=== PATIENT | female | born 1950 | race Caucasian/White ===

== ENCOUNTER 2016-07-16 18:04 | Emergency (ER) | payer OTHER ==
[2016-07-16 18:15] VITALS: BP 141/65
--- NOTE | 2016-07-16 19:16 | RAD ---
Indication: Cough, shortness of breath. 2 views of the chest including dual energy PA views demonstrate no mediastinal shift. Heart is normal size and configuration. Lungs are clear. When compared to May 15, 2015 no significant change is noted. IMPRESSION: No active cardiopulmonary disease is noted.
--- NOTE | 2016-07-16 20:00 | UC ---
Respiratory Complaint HPI - HPI Summary HPI Summary: PATIENT PRESENTS TO WITH CC OF COUGH, POST NASAL DRIP, CONGESTION AND NASAL DISCHARGE X 5 DAYS. SHE HAS HAD 1 X EPISODE OF PNA AND STATES SHE WANTED TO CATCH IT EARLY TO PREVENT ANOTHER PNA. SHE SAYS HER SYMPTOMS ARE BRONCHITIS THIS IS WHAT SHE HAS HAD IN THE PAST. SHE IS OTHERWISE HEALTHY. SHE DENIES FEVERS, CHILLS OR SWEATS. EDUCATED PATIENT ON ANTIBIOTICS AND BRONCHITIS. - History of Current Complaint Chief Complaint: UCRespiratory Stated Complaint: COUGH Time Seen by Provider: 07/16/16 18:22 Hx Obtained From: Patient Hx Last Menstrual Period: n/a ?: No Onset/Duration: Gradual Onset Timing: Constant Severity Initially: Moderate Severity Currently: Moderate Pain Intensity: 2 Pain Scale Used: 0-10 Numeric Character: Cough: Productive Aggravating Factors: Recumbent Position Alleviating Factors: Upright Position Associated Signs And Symptoms: Positive: URI, Nasal Congestion, Sinus Discomfort - Risk Factors Pulmonary Embolism Risk Factors: Negative Cardiac Risk Factors: Negative Pseudomonas Risk Factors: Negative Tuberculosis Risk Factors: Negative - Allergies/Home Medications Allergies/Adverse Reactions: Allergies Allergy/AdvReac Type Severity Reaction Status Date / Time Morphine Allergy Vomiting Verified 07/16/16 18:15 Penicillins [PCN] Allergy Fever Verified 07/16/16 18:15 PMH/Surg Hx/FS Hx/Imm Hx Previously Healthy: Yes Endocrine History Of: Reports: Diabetes Denies: Thyroid Disease Cardiovascular History Of: Reports: Hypertension Denies: Cardiac Disorders Respiratory History Of: Reports: Bronchitis - has had neb rxs in past, has MDI at home Denies: COPD, Asthma GI/ History Of: Denies: Ulcer Cancer History Of: Denies: Breast Cancer - Surgical History Surgical History: Yes Surgery Procedure, Year, and Place: choley, knee - Family History Known Family History: Positive: Hypertension, Diabetes - Social History Occupation: Unemployed Lives: With Family Alcohol Use: Occasionally Substance Use Type: None Smoking Status (MU): Current Every Day Smoker Review of Systems Constitutional: Fatigue Skin: Negative ENT: Nasal Discharge Respiratory: Shortness Of Breath, Cough Gastrointestinal: Negative Genitourinary: Negative Neurovascular: Negative Psychological: Negative All Other Systems Reviewed And Are Negative: Yes Physical Exam Triage Information Reviewed: Yes Appearance: Well-Appearing, Well-Nourished Vital Signs: Initial Vital Signs Temp 97.7 F 07/16/16 18:12 Pulse 90 07/16/16 18:12 Resp 18 07/16/16 18:12 BP 141/65 07/16/16 18:12 Vital Signs Reviewed: Yes Eye Exam: Normal Eyes: Positive: Conjunctiva Clear ENT: Positive: Nasal congestion, Nasal drainage Neck exam: Normal Neck: Positive: Supple, No Lymphadenopathy Respiratory Exam: Normal Respiratory: Positive: Chest non-tender, Lungs clear Cardiovascular Exam: Normal Cardiovascular: Positive: RRR Musculoskeletal Exam: Normal Musculoskeletal: Positive: Strength Intact Neurological: Positive: Alert Psychological: Positive: Normal Response To Family, Age Appropriate Behavior Skin Exam: Normal Respiratory Course/Dx - Course Course Of Treatment: PATIENT EDUCATED ON ANTIBIOTICS AND BRONCHITIS. PATIENT IS ENCOURAGED TO TAKE PREDNISONE AND COUGH MEDICATION INSTEAD OF ANTIBIOTICS COUGH SYMPTOMS HAVE BEEN PRESENT FOR ONLY 5 DAYS, LUNGS ARE CLEAR, CHEST XRAY IS NEGATIVE. PATIENT IS OK WITH PLAN AND IS OK FOR DISCHARGE. SHE AGREES TO COME BACK IF ANYTHING CHANGES. - Differential Dx/Diagnosis Differential Diagnosis/HQI/PQRI: Asthma, Bronchitis, Lower Resp Infection, Sinusitis Provider Diagnoses: COUGH, URI Discharge - Discharge Plan Condition: Stable Disposition: HOME Prescriptions: guaiFENesin/CODIEN 100MG-10MG* [Robitussin AC 100Mg-10Mg*] 10 ml PO Q4H PRN # 120 udc MDD 10 PRN Reason: Cough predniSONE TAB* [Deltasone TAB*] 10 mg PO DAILY #21 tab Patient Education Materials: Upper Respiratory Infection (ED) Referrals: Danisha Eller MD [Primary Care Provider] - Additional Instructions: Follow up as needed If symptoms become worse, come back to Humidifier in the home, honey and lemon will help robitussin with codeine at bedtime mucinex in the morning prednisone as prescribed in the morning if you develop a fever, chills, or aches, come back to
== END 2016-07-16 20:05 | disposition home or self-care (01) ==
LOC: UCEAST 18:04
DX: J06.9 Acute upper respiratory infection, unspecified (principal); R05 Cough; E11.9 Type 2 diabetes mellitus without complications; I10 Essential (primary) hypertension; Z90.49 Acquired absence of other specified parts of digestive tract; Z88.5 Allergy status to narcotic agent; Z88.0 Allergy status to penicillin; F17.210 Nicotine dependence, cigarettes, uncomplicated
CPT/HCPCS: 71020; 99212; G0463

== ENCOUNTER 2016-09-06 08:47 | Observation (INO) | payer OTHER ==
[2016-09-06] MEDS ORDERED: Ketorolac INJ* 30 MG/ML 1 ML VIAL IV ONE (10:57)
[2016-09-06] MEDS ORDERED: HYDROmorphone* 1 MG/ML 1 ML SYR IV ONE (10:57)
[2016-09-06] MEDS ORDERED: NS 0.9% 1000 ML* 1,000 ML IV ONE (11:05)
[2016-09-06 11:17] LABS: Hematocrit 43 % (35-47); Hemoglobin 14.3 g/dl (12.0-16.0); Mean Corpuscular HGB Conc 33 g/dl (31-36); Mean Corpuscular Hemoglobin 30 pg (27-31); Mean Corpuscular Volume 89 fL (80-97); Mean Platelet Volume 10 um3 (7.4-10.4); Red Blood Count 4.83 10^6/ul (4.0-5.4); Red Cell Distribution Width 14 % (10.5-15); White Blood Count 15.8 10^3/ul (3.5-10.8)
[2016-09-06 11:28] LABS: ALT 16 U/L (7-52); Albumin 4.2 g/dL (3.2-5.2); Alkaline Phosphatase 70 U/L (34-104); BUN/Creatinine Ratio 12.7 (8-20); Blood Urea Nitrogen 9 mg/dL (6-24); C Reactive Protein 9.47 mg/L (< 5.00); CO2 Carbon Dioxide 25 mmol/L (22-32); Calcium 9.3 mg/dL (8.6-10.3); Chloride 102 mmol/L (101-111); EGFR African American 106.6 (>60); EGFR Non-African American 82.9 (>60); Globulin 3.3 g/dL (2-4); Glucose 201 mg/dL (70-100); Lipase 19 U/L (11.0-82.0); Sodium 134 mmol/L (133-145); Total Protein 7.5 g/dL (6.4-8.9)
--- NOTE | 2016-09-06 11:48 | RAD ---
INDICATION: Left flank abdominal pain. COMPARISON: Comparison is made with a prior pelvic ultrasound from April 22, 2008. TECHNIQUE: A CT scan of the abdomen and pelvis was performed without intravenous or oral contrast. Contiguous axial sections were obtained from the lung bases through the symphysis pubis. Images were reconstructed in the coronal and sagittal planes. FINDINGS: There is a small left pleural effusion and minimal atelectasis in the left lower lobe. The liver is moderately enlarged and decreased in attenuation most consistent with fatty infiltration. No significant focal abnormality is seen on this noncontrast study. The patient is status post cholecystectomy. The spleen and pancreas appear to be within normal limits. The adrenal glands and kidneys are normal in size. No renal calculi or hydronephrosis is seen. No ureteral or bladder calculi are seen. The aorta is normal in caliber. There is moderate calcific plaque present. No significant enlarged retroperitoneal lymph nodes are seen. The stomach, small and large bowel appear nondistended. The appendix is not visualized. There is mild descending and sigmoid diverticulosis without evidence for diverticulitis. The uterus is retroverted and normal in size. There is a 4.6 x 3.8 x 4.6 cm left adnexal cyst most consistent with an ovarian cyst. There was a cyst noted in the left ovary on the prior study which is smaller than on the current exam. This may represent a new cyst or enlargement of the previously noted cyst. No free intraperitoneal air or fluid is seen. No significant focal osseous abnormality is seen. IMPRESSION: 1. SMALL LEFT PLEURAL EFFUSION. 2. HEPATOMEGALY AND HEPATIC STEATOSIS. 3. STATUS POST CHOLECYSTECTOMY. 4. 4.6 CM LEFT OVARIAN CYST. RECOMMEND A PELVIC ULTRASOUND FOR FURTHER EVALUATION.
[2016-09-06 12:24] LABS: Anion Gap 7 mmol/L (2-11)
[2016-09-06 13:38] LABS: Urine Bacteria Absent (Absent); Urine Bilirubin Negative (Negative); Urine Glucose Negative (Negative); Urine Nitrite Negative (Negative)
[2016-09-06] MEDS ORDERED: cefTRIAXone(*) 1 GM in NS 0.9% 50 ML* 50 ML IVPB ONE (14:17)
--- NOTE | 2016-09-06 15:13 | RAD ---
HISTORY: Left ovarian cyst COMPARISONS: CT dated September 06, 2016 TECHNIQUE: Multiple transverse and longitudinal ultrasound images were obtained of the pelvis using grayscale, color Doppler, and spectral Doppler imaging using the endovaginal transducer. FINDINGS: UTERUS: The uterus measures 4.5 x 2.3 x 4 cm. The uterus is normal in shape, size, contour, and echotexture. ENDOMETRIUM: The endometrial stripe is smooth. The endometrium measures 0.3 cm in thickness. There is a small amount of fluid along the endometrial cavity. CUL-DE-SAC: There is no free fluid within the cul-de-sac. RIGHT OVARY: The right ovary is not well-visualized LEFT OVARY: The left ovary measures 5.6 x 4 x 5.3 cm. Normal arterial and venous waveforms are identifiable within the ovary on spectral Doppler imaging. There is a 4.5 x 3.5 x 4.7 cm simple cyst of the left ovary corresponding to the finding noted on CT BLADDER: The bladder is not well visualized. IMPRESSION: 1. 4.7 CM SIMPLE CYST OF LEFT OVARY. RECOMMEND ATTENTION ON FOLLOW-UP IMAGING. 2. SMALL AMOUNT OF FLUID WITHIN THE ENDOMETRIAL CAVITY. THIS WOULD NOT BE EXPECTED TO BE PHYSIOLOGIC WITHIN A POSTMENOPAUSAL FEMALE.
[2016-09-06] MEDS ORDERED: oxyCODONE/Acetamin 5/325 MG* TAB PO PRN (15:44)
[2016-09-06] MEDS ORDERED: Ondansetron INJ* 2 MG/ML VIAL IV PRN (15:44)
[2016-09-06] MEDS ORDERED: Acetaminophen TAB* 325 MG PO PRN (15:44)
[2016-09-06] MEDS ORDERED: NS 0.9% 1000 ML* 1,000 ML IV SCH (15:45)
[2016-09-06] MEDS ORDERED: Dextrose 50% Syringe 50 ML* 25 GM/50 ML SYRINGE IV PUSH PRN (15:48)
[2016-09-06] MEDS ORDERED: cefTRIAXone VIAL(*) 1,000 MG in NS 0.9% 50 ML* 50 ML IVPB SCH (16:00)
--- NOTE | 2016-09-06 17:10 | RAD ---
Indication: Shortness of breath, leukocytosis. 2 views of the chest including dual energy PA views demonstrates no mediastinal shift. Minimal epicardial fat is noted in the left base. No alveolar consolidation is noted. IMPRESSION: Minimal epicardial fat in the left base. Lungs are clear.
[2016-09-06] MEDS: Insulin LISPRO* 1 UNITS UNIT SUBCUT SCH (17:51)
[2016-09-06] MEDS: Ketorolac INJ* 30 MG/ML 1 ML VIAL IV PUSH PRN (17:54)
--- NOTE | 2016-09-06 20:47 | HP ---
CC: Dr. Eller * MEDICINE HISTORY AND PHYSICAL: DATE OF ADMISSION: 09/06/16 PROVIDER: Alonso Carmona NP ATTENDING PHYSICIAN: Dr. Allison Mckenzie *(dictated by Alonso Carmona NP). PRIMARY CARE PROVIDER: Dr. Danisha Eller. CHIEF COMPLAINT: Left flank pain. HISTORY OF PRESENT ILLNESS: Ms. Cabrera is a 66-year-old female who presents to the ER today with concerns for left flank pain that started yesterday in the early afternoon and worsened overnight. The patient says that she originally thought she threw her back out. She denies any accompanied fevers, chills, cold , or flu symptoms. She denies any chest pain, palpitations, cough. She denies any dyspnea yesterday, but reports that when her pain became worse today, she started to feel short of breath. She denies any abdominal pain, nausea, vomiting, or diarrhea. She denies any dysuria, hematuria, urinary frequency, or vaginal bleeding. She denies any focal weakness or sensory loss, any new visual complaints, hearing complaints, or swallowing complaints. She denies any new joint or muscle pain, rashes, or lesions. The patient does report mechanical fall where she twisted her ankle the other day, but states that she did not twist her back or sustain any low back injuries. She does report a history of urinary tract infection x1 and kidney stones in the past. Here in the ER, the patient's white blood cell count was significant for 15.8 and her CRP was noted at 9.47. Urinalysis shows 2+ leukocyte esterase. The patient did have a CT of the abdomen and pelvis that was negative for any obstructing stones. No stones or hydronephrosis was seen. No ureteral or bladder calculi were seen. The patient did seem to have a 4.6-cm left ovarian cyst, which was also seen on a pelvic ultrasound with a small amount of fluid within the endometrial cavity. PAST MEDICAL HISTORY: 1. Type 2 diabetes. 2. Hypertension. 3. Hyperlipidemia. 4. Osteoarthritis. 5. Nephrolithiasis. PAST SURGICAL HISTORY: Cholecystectomy and right total knee replacement. HOME MEDICATIONS: 1. Meloxicam, dose unknown. 2. Pravastatin 10 mg daily. 3. Glipizide 5 mg b.i.d. 4. Robitussin A-C 10 mL q.4 hours p.r.n. 5. Metformin 1000 mg b.i.d. 6. Irbesartan 75 mg daily. ALLERGIES: Include MORPHINE and PENICILLIN. FAMILY HISTORY: She reports her father who had two heart attacks and from the second heart attack. One sister with a history of sarcoma and a nerve tumor , and a history of colon cancer on her father's side in aunts and uncles. SOCIAL HISTORY: She is a current cigarette smoker. States she smokes 5 to 6 cigarettes a day. She had previously quit, but restarted when her . She drinks alcohol on a weekly basis usually when out with friends on the weekends. She denies any illicit drug use. She is . She currently lives with her nephew and his . Her nephew, Jesus Ngo, is her surrogate decision maker. REVIEW OF SYSTEMS: As per HPI. PHYSICAL EXAMINATION GENERAL: Ms. Cabrera is a 66-year-old female who is lying in the ED stretcher, in no acute distress. VITAL SIGNS: Temperature 96.9, heart rate 85, respiratory rate 18, blood pressure /72, and O2 saturation is 100% on room air. HEENT: Head is atraumatic and normocephalic. Face is symmetrical. Pupils are equal, round, and reactive to light. Extraocular movements are intact. Sclerae are anicteric. Oral mucosa appears moist. NECK: Supple. No lymphadenopathy appreciated. The patient has full range of motion. RESPIRATORY: Lungs are clear to auscultation. No accessory muscle use. CARDIAC: S1 and S2. Heart sounds are regular rate and rhythm. No murmurs, rubs, or gallops. The patient has trace pretibial edema. Distal pulses are 2+ bilaterally. ABDOMEN: Soft. There is tenderness to left upper quadrant along the left flank. The patient does have positive CVA tenderness in the left side. Bowel sounds are present times all 4 quadrants. MUSCULOSKELETAL: There is no clubbing or cyanosis. The patient has full range of motion in all extremities. No swelling noted to the left ankle. NEURO: The patient moves all extremities. Cranial nerves II through XII are grossly intact. Sensation is intact to light touch bilaterally to the lower extremities. PSYCH: She is alert and oriented x3. Affect is appropriate. SKIN: Appears to be grossly intact, limited assessment. DIAGNOSTIC STUDIES/LAB DATA: CBC: WBC 15.8, hemoglobin 14.3, hematocrit 43, platelet count 295. CMP: Sodium 134, potassium 4.1, chloride 102, carbon dioxide 25, BUN 9, creatinine 0.71, glucose 201, lactic acid 1.3, calcium 9.3. Total bilirubin 1.1, AST 9, ALT 16, alk phos 70. CRP 9.47. Albumin 4.2, lipase 19. Urinalysis shows 2+ leukocyte esterase, 1+ wbc's. ASSESSMENT AND PLAN: Ms. Cabrera is a 66-year-old female, who presents today with left flank pain. We will watch her under observation status. Plan is as follows: 1. Left flank pain. Suspect this is most likely pyelonephritis, although this could represent a left pleuritic pain. She does report having some shortness of breath this morning that did get better once arriving here in the ER. I will check a chest x-ray, PA and lateral, to make sure there is no developing pneumonia. She does have an elevated white count, but no other remarkable labs and her urine does appear to have concern for infection. At this point, we will start the patient on ceftriaxone and await urine culture. Check the x- ray. If it appears that the patient has a developing infiltrate, we could add on azithromycin. At this point in time, it feels like this cause is more likely to be a developing pyelonephritis, but we will continue to monitor and see. The patient's pain is controlled with p.r.n. pain medications. We will continue to hydrate her and recheck labs tomorrow. 2. Type 2 diabetes. The patient's random glucose is 201. I am not sure how well controlled the patient is at home. We will check a hemoglobin A1c. She may benefit from a nursing educator consult. Additionally, we will continue her on fingerstick blood glucose checks a.c. with insulin sliding scale coverage and hold her home metformin and glipizide while she is here in the hospital. 3. Hypertension. Continue home irbesartan. 4. Hyperlipidemia. Continue home pravastatin. 5. FEN. The patient is ordered consistent carbohydrate diet. 6. DVT prophylaxis. The patient is ordered subcu heparin. 7. Code status: She is a full code. TIME SPENT: Time spent on this admission was approximately 60 minutes, more than half the time was spent [id number] with the patient obtaining history and physical, performing the physical examination, and reviewing the plan of care. Plan of care was also reviewed with my attending, Dr. Allison Mckenzie,, who is in agreement. ALONSO CARMONA, SEAN [id number]/[facility] #: [id number] ADRIENNE
[2016-09-06] MEDS: Heparin VIAL(*) 5000 UNITS/ML VIAL (FIVE THOUSAND) SUBCUT SCH (21:53)
[2016-09-07] MEDS: Ketorolac INJ* 30 MG/ML 1 ML VIAL IV PUSH PRN (05:10)
[2016-09-07] MEDS: Heparin VIAL(*) 5000 UNITS/ML VIAL (FIVE THOUSAND) SUBCUT SCH ×2 (05:11→14:53)
[2016-09-07 06:02] LABS: Hematocrit 35 % (35-47); Hemoglobin 11.6 g/dl (12.0-16.0); Mean Corpuscular HGB Conc 33 g/dl (31-36); Mean Corpuscular Hemoglobin 30 pg (27-31); Mean Corpuscular Volume 90 fL (80-97); Mean Platelet Volume 9 um3 (7.4-10.4); Red Blood Count 3.88 10^6/ul (4.0-5.4); Red Cell Distribution Width 13 % (10.5-15); White Blood Count 8.7 10^3/ul (3.5-10.8)
[2016-09-07 06:17] LABS: BUN/Creatinine Ratio 14.7 (8-20); Calcium 8.6 mg/dL (8.6-10.3); EGFR African American 100.1 (>60); EGFR Non-African American 77.8 (>60); Potassium 4.3 mmol/L (3.5-5.0)
[2016-09-07] MEDS: Insulin LISPRO* 1 UNITS UNIT SUBCUT SCH ×2 (08:20→12:13)
[2016-09-07] MEDS ORDERED: Pravastatin (NF) 10 MG TAB PO SCH (09:00)
[2016-09-07] MEDS ORDERED: Losartan TAB* 25 MG PO SCH (09:00)
[2016-09-07 12:01] VITALS: BP 141/55
--- NOTE | 2016-09-08 03:05 | DS ---
CC: Dr. Eller* DISCHARGE SUMMARY: DATE OF ADMISSION: 09/06/16 DATE OF DISCHARGE: 09/07/16 PRIMARY CARE PROVIDER: Dr. Danisha Eller. PRIMARY DIAGNOSIS: Left flank pain. SECONDARY DIAGNOSES: 1. Type 2 diabetes. 2. Tobacco dependence. 3. Hypertension. 4. Hyperlipidemia. 5. History of nephrolithiasis. MEDICATIONS ON DISCHARGE: 1. Pravastatin 10 mg daily. 2. Glipizide 5 mg twice daily. 3. Robitussin with Codeine 10 mL every 4 hours as needed for cough. 4. Metformin 1000 mg twice daily. 5. Irbesartan 75 mg daily. 6. Chantix starter pack. IMAGING STUDIES: CT abdomen and pelvis, impression: Small left pleural effusion. Hepatomegaly and hepatosteatosis, status post cholecystectomy. A 4.6 CM LEFT OVARIAN CYST. Transvaginal ultrasound, impression: 4.7 CM SIMPLE CYST OF THE LEFT OVARY. Recommend attention on followup imaging. Small amount of fluid within the endometrial cavity. This would not be expected to be physiologic in a postmenopausal female. PERTINENT MICROBIOLOGY: Negative urine culture. PERTINENT LABORATORY DATA: White blood cell count on presentation 15.8, 77% neutrophils, decreased to 8.7 with one dose of ceftriaxone as well as ketorolac. HISTORY OF PRESENT ILLNESS AND HOSPITAL COURSE: This is a 66-year-old female presented to the hospital with left flank pain, starting the night before. She underwent a CT abdomen and pelvis notable for left-sided ovarian cyst; where the transvaginal ultrasound confirming the ovarian cyst thought to be simple, however, associated with small amount of pelvic fluid. She was treated with ceftriaxone for a presumed urinary tract infection based on the urinalysis, which had leuk esterase as well as white blood cells although no bacteria. A urine culture returned negative. She remained afebrile during the course of the hospital stay. Not thought that she has pyelonephritis at this time based on the CT abdomen and pelvis as well as negative urine culture and urinalysis in the absence of bacteria. Unclear etiology of her left flank pain; however, resolved overnight with minimal intervention. I did not think the antibiotics contributed to the resolution of her pain. She did have an elevated leukocytosis on presentation, however, was not left shifted. At this time, she is stable for discharge and will not continue antibiotics. She should have attention to her left ovarian cyst at followup. The patient indicates she is still an active smoker five to six cigarettes per day, however, is interested in quitting. She has been successful on Chantix in the past and Chantix is prescribed on discharge from this hospital stay. At followup, please; 1. Consider rechecking CBC for continued resolution of leukocytosis off of antibiotics. 2. Followup left-sided simple cyst as deemed appropriate. 3. Encourage continued smoking cessation, compliance with the Chantix. 4. No other specific labs or vitals that need follow up. Reasons to return to the hospital included, but not limited to recurrent or worsening symptoms including left-sided flank pain, abdominal pain, nausea, vomiting, lightheadedness, loss of consciousness, fevers, chills, night sweats, chest pain, shortness of breath, inability to obtain or tolerate medications were discussed with the patient at length, she acknowledged understanding. TIME SPENT: Greater than 45 minutes was spent on the discharge of this patient , greater than half was spent [id number] with the patient. [id number]/[facility] #: [id number] ADRIENNE
--- NOTE | 2016-09-09 22:52 | ED ---
Melquiades Magdaleno Salem, scribed for Sahil Daivs MD on 09/06/16 at 1100 . Back Pain - HPI Summary HPI Summary: Patient is a 66 y/o F who presents to the ED with left flank pain since yesterday afternoon, worse since this morning. She reports SOB, but denies CP, fever, dysuria, hematuria, or frequency. Pt is present at the ED with her sister. PMHx significant for kidney stones. She denies any recent trauma. - History of Current Complaint Chief Complaint: EDChestPainROMI Stated Complaint: SOB/LT FLANK PAIN Time Seen by Provider: 09/06/16 10:59 Hx Obtained From: Patient Hx Last Menstrual Period: n/a Onset/Duration: Gradual Onset, Lasting Days, Still Present, Worse Since Onset/Duration: Started Days Ago, Atraumatic, Still Present, Worse Since Timing: Constant, Lasting Days Back Pain Location: Is Discrete @ - Left CVA. Severity Initially: Moderate Severity Currently: Moderate Pain Intensity: 10 Pain Scale Used: 0-10 Numeric Character: Sharp Aggravating Symptom(s): Movement - Recumbent position. Alleviating Symptom(s): Rest, Position Associated Signs And Symptoms: Positive: Flank Pain - Allergies/Home Medications Allergies/Adverse Reactions: Allergies Allergy/AdvReac Type Severity Reaction Status Date / Time Morphine Allergy Vomiting Verified 07/16/16 18:15 Penicillins [PCN] Allergy Fever Verified 07/16/16 18:15 PMH/Surg Hx/FS Hx/Imm Hx Endocrine/Hematology History: Reports: Hx Diabetes Denies: Hx Thyroid Disease Cardiovascular History: Reports: Hx Hypertension Respiratory History: Denies: Hx Asthma, Hx Chronic Obstructive Pulmonary Disease (COPD) GI History: Denies: Hx Ulcer - Surgical History Surgery Procedure, Year, and Place: choley, knee Infectious Disease History: No Infectious Disease History: Denies: Hx Hepatitis, Hx Human Immunodeficiency Virus (HIV), Traveled Outside the [place] in Last 30 Days - Family History Known Family History: Positive: Hypertension, Diabetes - Social History Alcohol Use: None Substance Use Type: Reports: None Hx Tobacco Use: Yes Smoking Status (MU): Current Every Day Smoker Review of Systems Negative: Fever, Chills Negative: Erythema Negative: Sore Throat Negative: Chest Pain Positive: Shortness Of Breath. Negative: Cough Negative: Abdominal Pain, Vomiting, Nausea Positive: flank pain. Negative: dysuria, frequency, hematuria Negative: Myalgia, Edema Negative: Rash Neurological: Other - No dizziness. All Other Systems Reviewed And Are Negative: Yes Physical Exam - Summary Physical Exam Summary: Constitutional: Well-developed, Well-nourished, Alert. (-) Distressed. Appears very uncomfortable. Skin: Warm, Dry HENT: Normocephalic; Atraumatic Eyes: Conjunctiva normal Neck: Musculoskeletal ROM normal neck. (-) JVD, (-) Stridor, (-) Tracheal deviation Cardio: Rhythm regular, rate normal, Heart sounds normal; Intact distal pulses; The pedal pulses are 2+ and symmetric. Radial pulses are 2+ and symmetric. (-) Murmur Pulmonary/Chest wall: Effort normal. (-) Respiratory distress, (-) Wheezes, (-) Rales Abd: Soft, , (-) Distension, (-) Guarding, (-) Rebound. Musculoskeletal: (-) Edema. Left CVA tenderness. Lymph: (-) Cervical adenopathy Neuro: Alert, Oriented x3 Psych: Mood and affect Normal Triage Information Reviewed: Yes Vital Signs On Initial Exam: Initial Vitals Temp Pulse Resp BP Pulse Ox 96.9 F 85 17 148/72 100 09/06/16 09:11 09/06/16 09:11 09/06/16 09:11 09/06/16 09:11 09/06/16 09:11 Vital Signs Reviewed: Yes - Maggie Coma Scale Coma Scale Total: 15 Diagnostics - Vital Signs Vital Signs Temp Pulse Resp BP Pulse Ox 09/06/16 09:59 96.9 F 85 17 148/72 100 09/06/16 09:11 96.9 F 85 17 148/72 100 - Laboratory Result Diagrams: 09/06/16 11:00 09/06/16 12:03 Lab Statement: Any lab studies that have been ordered have been reviewed, and results considered in the medical decision making process. - CT ABD/PELVIS CT Interpretation Completed By: Radiologist - IMPRESSION: 1. SMALL LEFT PLEURAL EFFUSION. 2. HEPATOMEGALY AND HEPATIC STEATOSIS. 3. STATUS POST CHOLECYSTECTOMY. 4. 4.6 CM LEFT OVARIAN CYST. RECOMMEND A PELVIC ULTRASOUND FOR FURTHER EVALUATION. - Ultrasound No standard instances Ultrasound Interpretation Completed By: Radiologist - TRANSVAGINAL US IMPRESSION : 1. 4.7 CM SIMPLE CYST OF LEFT OVARY. RECOMMEND ATTENTION ON FOLLOW-UP IMAGING. 2. SMALL AMOUNT OF FLUID WITHIN THE ENDOMETRIAL CAVITY. THIS WOULD NOT BE EXPECTED TO BE PHYSIOLOGIC WITHIN A POSTMENOPAUSAL FEMALE. - EKG 1042 EKG Interpretation: NSR @99 bpm. No STEMI. Back Pain Course/Dx - Course Course Of Treatment: 66 y/o F presents with left flank pain since yesterday afternoon, worse since this morning. She reports SOB, but denies CP, fever, dysuria, hematuria, or frequency. Pt received Dilaudid and Toradol in the ED course. CT shows, per radiology, IMPRESSION: 1. SMALL LEFT PLEURAL EFFUSION. 2. HEPATOMEGALY AND HEPATIC STEATOSIS. 3. STATUS POST CHOLECYSTECTOMY. 4. 4.6 CM LEFT OVARIAN CYST. RECOMMEND A PELVIC ULTRASOUND FOR FURTHER EVALUATION. EKG shows NSR @99 bpm. No STEMI. US shows, per radiology, IMPRESSION: 1. 4.7 CM SIMPLE CYST OF LEFT OVARY. RECOMMEND ATTENTION ON FOLLOW-UP IMAGING. 2. SMALL AMOUNT OF FLUID WITHIN THE ENDOMETRIAL CAVITY. THIS WOULD NOT BE EXPECTED TO BE. PHYSIOLOGIC WITHIN A POSTMENOPAUSAL FEMALE. Pt will be admitted. - Diagnoses Differential Diagnosis/HQI/PQRI: Positive: Other - Pyelonephritis. Kidney stones. Provider Diagnoses: Pyelonephritis - Provider Notifications Discussed Care Of Patient With: Allison Calderon Time Discussed With Above Provider: 14:35 Instructed by Provider To: Admit As Inpatient Admit/Transition Orders Completed By ED Provider: Yes Discharge - Discharge Plan Condition: Stable Disposition: ADMITTED TO [facility] Referrals: Danisha Eller MD [Primary Care Provider] - The documentation as recorded by the Melquiades lemons Salem accurately reflects the service I personally performed and the decisions made by Susan ochoa Jerry, MD.
== END 2016-09-07 14:50 | disposition home or self-care (01) ==
LOC: ED 08:47 → MED 14:35
PROVIDERS: ADMIT Internal Medicine; ATTEND Internal Medicine
DX: R10.9 Unspecified abdominal pain (principal); E11.9 Type 2 diabetes mellitus without complications; I10 Essential (primary) hypertension; E78.5 Hyperlipidemia, unspecified; Z87.442 Personal history of urinary calculi; R06.02 Shortness of breath; J90 Pleural effusion, not elsewhere classified; R16.0 Hepatomegaly, not elsewhere classified; N83.202 Unspecified ovarian cyst, left side; F17.210 Nicotine dependence, cigarettes, uncomplicated; Z79.84 Long term (current) use of oral hypoglycemic drugs; Z79.899 Other long term (current) drug therapy; Z88.0 Allergy status to penicillin; Z88.5 Allergy status to narcotic agent
CPT/HCPCS: 36415; 71020; 74176; 76830; 80048; 80053; 81003; 81015; 83036; 83605; 83690; 85025; 86140; 87086; 93005; 96365; 96372; 96375; 96376; 99283; A9270-GY; G0378; J0696; J1170; J1644; J1885; J2405

== ENCOUNTER 2017-04-23 10:59 | Emergency (ER) | payer MEDICARE, OTHER ==
[2017-04-23] MEDS ORDERED: NS 0.9% 1000 ML* 1,000 ML IV ONE (11:19)
[2017-04-23] MEDS ORDERED: Ondansetron INJ* 2 MG/ML VIAL IV ONE (11:20)
[2017-04-23] MEDS ORDERED: HYDROmorphone INJ* 2 MG/ML CARPUJECT SYRINGE IV SLOW PU ONE (11:20)
--- NOTE | 2017-04-23 11:26 | ED ---
GI/ HPI - HPI Summary HPI Summary: 67 female presents with right flank pain for the past couple days. She has history of kidney stones and states feels the same. She has been taking her oxycodone without relief. She denies any pain with urination. She denies any fevers. She is unsure about hematuria. She denies any nausea or vomiting. She denies any diarrhea or constipation. She does not have a urologist. She has had her gallbladder removed. She is never required surgery for her kidney stones. She is a diabetic. She denies any injury. She is in intense pain. She denies any chest pain or SOB. - History of Current Complaint Chief Complaint: EDFlankPain Time Seen by Provider: 04/23/17 11:07 Stated Complaint: RT FLANK PAIN Hx Last Menstrual Period: n/a Pain Intensity: 10 - Additional Pertinent History Primary Care Physician: KIRSTEN - Allergy/Home Medications Allergies/Adverse Reactions: Allergies Allergy/AdvReac Type Severity Reaction Status Date / Time morphine Allergy Nausea And Verified 04/23/17 11:41 Vomiting Penicillins Allergy See Comment Verified 04/23/17 11:41 PMH/Surg Hx/FS Hx/Imm Hx Endocrine/Hematology History: Reports: Hx Diabetes Denies: Hx Thyroid Disease Cardiovascular History: Reports: Hx Hypercholesterolemia, Hx Hypertension Respiratory History: Denies: Hx Asthma, Hx Chronic Obstructive Pulmonary Disease (COPD) GI History: Denies: Hx Ulcer Sensory History: Reports: Hx Contacts or Glasses - for reading Denies: Hx Hearing Aid, Other Sensory Impairments Opthamlomology History: Reports: Hx Contacts or Glasses - for reading Denies: Other Sensory Impairments - Surgical History Surgery Procedure, Year, and Place: choley, knee Infectious Disease History: No Infectious Disease History: Denies: Hx Clostridium Difficile, Hx Hepatitis, Hx Human Immunodeficiency Virus (HIV), Traveled Outside the [place] in Last 30 Days - Family History Known Family History: Positive: Hypertension, Diabetes - Social History Alcohol Use: Occasionally Substance Use Type: Reports: None Hx Tobacco Use: Yes Smoking Status (MU): Former Smoker Review of Systems Negative: Fever Negative: Chest Pain Negative: Shortness Of Breath Negative: Abdominal Pain, Vomiting, Diarrhea, Nausea Positive: flank pain All Other Systems Reviewed And Are Negative: Yes Physical Exam Triage Information Reviewed: Yes Vital Signs On Initial Exam: Initial Vitals Temp Pulse Resp BP Pulse Ox 97.4 F 75 20 129/86 100 04/23/17 11:02 04/23/17 11:02 04/23/17 11:02 04/23/17 11:02 04/23/17 11:02 Vital Signs Reviewed: Yes Appearance: Positive: Pain Distress Skin: Positive: Warm, Dry Head/Face: Positive: Normal Head/Face Inspection Eyes: Positive: Normal, Conjunctiva Clear Respiratory/Lung Sounds: Positive: Clear to Auscultation, Breath Sounds Present Cardiovascular: Positive: Normal, RRR Abdomen Description: Positive: Nontender, Soft, CVA Tenderness (R) Bowel Sounds: Positive: Present Musculoskeletal: Positive: Normal Neurological: Positive: Normal Psychiatric: Positive: Normal Diagnostics - Vital Signs Vital Signs Temp Pulse Resp BP Pulse Ox 04/23/17 11:02 97.4 F 75 20 129/86 100 - Laboratory Result Diagrams: 04/23/17 11:15 04/23/17 11:15 Lab Statement: Any lab studies that have been ordered have been reviewed, and results considered in the medical decision making process. Re-Evaluation - Re-Evaluation First Eval Re-Evaluation Time: 12:18 Change: Improved Comment: felling better except intense pain when moves GIGU Course/Dx - Course Course Of Treatment: 67 female presents with right flank pain for the past couple days. She has history of kidney stones and states feels the same. She has been taking her oxycodone without relief. She denies any pain with urination. She denies any fevers. She is unsure about hematuria. She denies any nausea or vomiting. She denies any diarrhea or constipation. She does not have a urologist. She has had her gallbladder removed. She is never required surgery for her kidney stones. She is a diabetic. She denies any injury. She is in intense pain. on exam pos CVA tenderness right. nontender abdomen. labs wnl. CT abd: no obstruction. left adnexal cystic structure. urine likely contaminate. will treat as sprain. will give muscle relaxer and short course of pain medication. patient understand and agrees with plan. - Diagnoses Differential Diagnoses - Female: Pyelonephritis, Urinary Tract Infection, Ureteral Calculi Provider Diagnoses: Flank pain Discharge - Discharge Plan Condition: Good Disposition: HOME Prescriptions: Cyclobenzaprine TAB* [Flexeril 10 MG TAB*] 10 mg PO TID PRN #15 tab PRN Reason: Pain Lidocaine PATCH 5%* [Lidoderm 5% Patch*] 1 patch TRANSDERM DAILY #6 patch oxyCODONE/Acetamin 5/325 MG* [Percocet 5/325 TAB*] 1 tab PO Q6H PRN #8 tab MDD 4 PRN Reason: Pain Patient Education Materials: Flank Pain (ED) Referrals: Danisha Eller MD [Primary Care Provider] - Additional Instructions: Take muscle relaxers three times a day Apply lidocaine patches to area for up to 12 hours in one 24 hour period Use Tylenol for pain every 6 hours, use narcotic for break though pain ice/heat area, move as much as possible Follow up with primary within 5 days Return to ED if develop any new or worsening symptoms
[2017-04-23 11:44] LABS: ABS Basophils 0 10^3/ul (0-0.2); ABS Eosinophils 0.3 10^3/ul (0-0.6); ABS Lymphocytes 2.3 10^3/ul (1.0-4.8); ABS Monocytes 0.5 10^3/ul (0-0.8); ABS Neutrophils 5.2 10^3/ul (1.5-7.7); ABS Nucleated RBC 0 10^3/ul; EGFR Non-African American 76.4 (>60); Eosinophil % 3.3 % (0-6); Hematocrit 38 % (35-47); Hemoglobin 12.8 g/dl (12.0-16.0); Lymphocyte % 27.6 % (25-47); Mean Corpuscular HGB Conc 33 g/dl (31-36); Mean Corpuscular Hemoglobin 29 pg (27-31); Mean Corpuscular Volume 87 fL (80-97); Mean Platelet Volume 8 um3 (7.4-10.4); Nucleated Red Blood Cells % 0; Platelet Count 292 10^3/ul (150-450); Red Blood Count 4.42 10^6/ul (4.0-5.4); Red Cell Distribution Width 13 % (10.5-15); White Blood Count 8.3 10^3/ul (3.5-10.8)
--- NOTE | 2017-04-23 12:08 | RAD ---
Indication: Right flank pain. CT of the abdomen and pelvis was performed after oral and IV contrast administration. Coronal and sagittal reconstructed images were obtained. Comparison is made with previous exam dated September 06, 2016. Lung bases demonstrate no pleural fluid, nodules or masses. Heart is of normal size without evidence of pericardial effusion. The liver is normal in size. No focal lesions or intrahepatic ductal dilatation is noted. The spleen is normal in size. Pancreas demonstrates no mass or pancreatic ductal dilatation. The common duct is not dilated. The patient status post cholecystectomy. No adrenal lesions are noted. The kidneys demonstrates no hydronephrosis. No retroperitoneal adenopathy is noted. No evidence of abdominal aortic aneurysm is noted although atherosclerosis of the abdominal aorta is noted. CT of the pelvis demonstrates no pelvic adenopathy. There is a left adnexal cyst measuring up to 4.0 cm. This is not significantly changed since previous exam of September 06, 2016. No free fluid is noted. The colon is filled with stool. No free fluid is identified. The urinary bladder is unremarkable. Appendix is not definitively identified. The bony structures demonstrates multilevel degenerative disc disease of the lumbar spine. IMPRESSION: No evidence of obstructive uropathy is noted. Left adnexal cystic structure measuring up to 4 cm. This is unchanged from September 06, 2016. Patient status post cholecystectomy. Appendix is not definitively identified.
[2017-04-23] MEDS ORDERED: Orphenadrine Citrate IV* 30 MG/ML 2 ML VIAL IV ONE (12:15)
[2017-04-23] MEDS ORDERED: Ketorolac INJ* 30 MG/ML 1 ML VIAL IV PUSH ONE (12:15)
[2017-04-23] MEDS ORDERED: Orphenadrine Citrate IV* 30 MG/ML 2 ML VIAL IM ONE (12:33)
[2017-04-23] MEDS ORDERED: Lidocaine PATCH 5%* 1 PATCH TRANSDERM SCH (13:00)
[2017-04-23 14:01] LABS: Urine Appearance Clear; Urine Blood Negative (Negative); Urine Color Yellow; Urine Ketones Negative (Negative); Urine Protein Negative (Negative); Urine Specific Gravity 1.017 (1.010-1.030); Urine Urobilinogen Negative (Negative)
[2017-04-23 14:02] VITALS: BP 132/68
[2017-04-23] MEDS ORDERED: Lidocaine Patch REMOVE* 1 NOTE MISC SCH (21:00)
== END 2017-04-23 14:20 | disposition home or self-care (01) ==
LOC: ED 10:59
DX: R10.9 Unspecified abdominal pain (principal); N85.8 Other specified noninflammatory disorders of uterus; E11.9 Type 2 diabetes mellitus without complications; Z87.442 Personal history of urinary calculi; Z87.891 Personal history of nicotine dependence; Z90.49 Acquired absence of other specified parts of digestive tract; Z88.5 Allergy status to narcotic agent; Z88.0 Allergy status to penicillin
CPT/HCPCS: 36415; 74176; 80053; 81003; 81015; 83605; 83690; 85025; 86141; 87086; 96372; 96374; 96375; 99282; A9270-GY; J1170; J1885; J2360; J2405

== ENCOUNTER 2017-07-16 07:30 | Inpatient (IN) | payer MEDICAID, MEDICARE ==
[2017-08-26] MEDS ORDERED: Buffered Lidocaine 0.9% SYRIN* 5 ML/SYR SYRINGE INTRADERM ONE (12:55)
[2017-08-27] MEDS ORDERED: Ondansetron ODT TAB* 4 MG PO ONE (00:01)
[2017-08-27] MEDS ORDERED: Gabapentin CAP(*) 300 MG PO ONE (06:00)
[2017-08-27] MEDS ORDERED: Acetaminophen IV 1GM/100ML * 1,000 MG/100 ML VIAL IVPB ONE (06:00)
[2017-08-27] MEDS ORDERED: Dexamethasone IV* 4 MG/ML 1 ML (4 MG) IV SLOW PU ONE (06:00)
[2017-08-27] MEDS ORDERED: celeCOXIB CAP* 200 MG PO ONE (06:00)
[2017-08-27] MEDS ORDERED: Dexamethasone IV* 4 MG/ML 1 ML (4 MG) ONE (06:18)
[2017-08-27] MEDS ORDERED: Gabapentin CAP(*) 300 MG ONE (06:19)
[2017-08-27] MEDS ORDERED: ceFAZolin 2 GM PREMIX (*) 2 GM/50 ML BAG IVPB ONE (06:19)
[2017-08-27] MEDS ORDERED: Ondansetron ODT TAB* 4 MG ONE (06:19)
[2017-08-27] MEDS ORDERED: celeCOXIB CAP* 100 MG ONE (06:19)
[2017-08-27] MEDS ORDERED: Acetaminophen IV 1GM/100ML * 100 ML ONE (06:55)
[2017-08-27] MEDS ORDERED: Midazolam* 1 MG/ML 5 ML VIAL (5 MG) ONE ×2 (07:12→08:44)
[2017-08-27] MEDS ORDERED: fentaNYL* 50 MCG/ML 2 ML VIAL (100 MCG VIAL) ONE (07:12)
[2017-08-27] MEDS ORDERED: ceFAZolin 1 GM in Dextrose (*) 1 GM/50 ML BAG IVPB ONE (07:15)
[2017-08-27] MEDS ORDERED: ROPIVACAINE 5 MG/ML 30 ML BTL (0.5%) ONE (07:24)
[2017-08-27] MEDS ORDERED: Bupivacaine 0.5% SDV PF* 30ML VIAL ONE (07:43)
[2017-08-27] MEDS ORDERED: Phenylephrine INJ* 10 MG/ML 1 ML VIAL (10 MG) ONE (07:47)
[2017-08-27] MEDS ORDERED: Propofol* 10 MG/ML 20 ML BTL IV PUSH ONE (07:47)
[2017-08-27] MEDS ORDERED: Bupivacaine 0.5% PF 10 ML VIAL INJ ONE (07:47)
[2017-08-27] MEDS ORDERED: Lidocaine 1% MPF wEPI 200,000* 30 ML SDV ONE (08:44)
[2017-08-27] MEDS ORDERED: DiMENhydriNATE IV* 50 MG/ML VIAL IV PUSH PRN (08:50)
[2017-08-27] MEDS ORDERED: Ondansetron INJ* 2 MG/ML VIAL IV PRN (08:50)
[2017-08-27] MEDS ORDERED: Naloxone* 0.4 MG/ML 1 ML VIAL IV PRN (08:50)
[2017-08-27] MEDS ORDERED: Scopolamine 1.5 mg* PATCH TRANSDERM PRN (08:50)
[2017-08-27] MEDS ORDERED: HYDROmorphone INJ* 1 MG/ML CARPUJECT SYRINGE IV PRN (08:50)
[2017-08-27] MEDS ORDERED: fentaNYL* 50 MCG/ML 2 ML VIAL (100 MCG VIAL) IV PRN (08:50)
[2017-08-27] MEDS ORDERED: oxyCODONE/Acetamin 5/325 MG* TAB PO PRN (10:59)
[2017-08-27] MEDS ORDERED: Cyclobenzaprine TAB* 10 MG PO PRN (10:59)
[2017-08-27] MEDS ORDERED: diPHENhydraMINE IV* 50 MG/ML 1 ml VIAL (BENADRYL) IV PRN (10:59)
[2017-08-27] MEDS ORDERED: Ondansetron 40 MG VIAL* 2 MG/ML 20 ML VIAL IV PRN (10:59)
[2017-08-27] MEDS ORDERED: Ondansetron TAB* 4 MG PO PRN (10:59)
[2017-08-27] MEDS ORDERED: Magnesium Hydroxide LIQ* 30 ML UDC PO PRN (10:59)
[2017-08-27] MEDS ORDERED: diPHENhydraMINE PO* 25 MG PO PRN (10:59)
[2017-08-27] MEDS ORDERED: Enoxaparin(*) 40 MG/0.4 ML SYR SUBCUT SCH (11:00)
[2017-08-27] MEDS ORDERED: HYDROmorphone INJ* 2 MG/ML CARPUJECT SYRINGE IV SLOW PU PRN ×2 (11:13)
--- NOTE | 2017-08-27 11:32 | RAD ---
Indication: Left knee replacement 2 views of left knee demonstrates bipolar left knee replacement in satisfactory position. No loosening is noted. IMPRESSION: Right pole of left knee replacement in satisfactory position.
[2017-08-27] MEDS ORDERED: Dextrose 50% Syringe 50 ML* 25 GM/50 ML SYRINGE IV PUSH PRN (12:47)
[2017-08-27] MEDS: oxyCODONE TAB* 5 MG TAB PO PRN ×2 (13:52→19:41)
[2017-08-27] MEDS: ceFAZolin 1 GM in Dextrose (*) 1 GM/50 ML BAG IVPB SCH ×2 (15:29→23:06)
[2017-08-27] MEDS ORDERED: Warfarin TAB(*) 7.5 MG PO ONE (17:00)
[2017-08-27] MEDS: CMC:Pravastatin (NF) 20 MG TAB PO SCH (18:06)
[2017-08-27] MEDS: Insulin LISPRO* 1 UNITS UNIT SUBCUT SCH ×2 (18:06→22:56)
[2017-08-27] MEDS: Famotidine TAB* 20 MG PO SCH (18:06)
--- NOTE | 2017-08-27 18:54 | CONS ---
CC: Zachariah Salcido MD; Danisha Eller MD * CONSULTATION REPORT: DATE OF CONSULT: 08/27/17 ATTENDING HOSPITALIST: Aneesh Hernandez MD PRIMARY ORTHOPEDIC DOCTOR: Zachariah Salcido MD PRIMARY CARE PHYSICIAN: Danisha Eller MD REASON FOR CONSULT: Medical comanagement. CHIEF COMPLAINT: Left knee pain. HISTORY OF PRESENT ILLNESS: Mrs. Cabrera is a pleasant 67-year-old female who has past medical history significant for hypertension, hyperlipidemia, and type 2 diabetes mellitus who has been evaluated by the orthopedic services of [facility] for consideration of left knee replacement. The patient had her right knee replaced by Dr. Salcido in the past; however, she continues to have pain on her left knee as well due to longstanding history of osteoarthritis. She also suffered from morbid obesity and has been not able to walk or ambulate without stopping due to pain. She had tried multiple conservative measures to control her chronic knee pain; however, the old failed and the patient was considered for left knee arthroplasty after discussion with Dr. Salcido. She was taken to the operating room earlier today and had a left total knee replacement by Dr. Salcido that went essentially unremarkable. We were asked to see the patient for medical management after her surgery given her history of hypertension, hyperlipidemia, diabetes mellitus, as well as her history of DVT after she had her right knee arthroplasty. PAST MEDICAL HISTORY: As mentioned above, significant for hypertension, diabetes mellitus, hyperlipidemia, morbid obesity, osteoarthritis, as well as history of DVT after right knee arthroplasty in the past, and GERD. PAST SURGICAL HISTORY: Significant for right knee arthroplasty as well as a cholecystectomy. CURRENT MEDICATIONS: Include: 1. Garlic 1 tablet p.o. q.a.m. 2. Glipizide 5 mg p.o. daily. 3. Irbesartan 75 mg p.o. daily. 4. Glucophage 1000 mg p.o. b.i.d. 5. Multivitamin with iron and folic acid 1 tablet p.o. daily. 6. Naproxen 220/25 one tablet q.p.m. p.r.n. for pain. 7. Toluca-3 fish oil 1000 mg p.o. daily. 8. Pravastatin 10 mg p.o. daily. 9. Ranitidine 300 mg p.o. q.p.m. 10. Percocet 5/325 mg 1 to 2 tablets every 6 hours as needed for pain. ALLERGIES: She is allergic to MORPHINE, PENICILLINS, and ASPIRIN. FAMILY HISTORY: Significant for colorectal malignancies in an aunt and uncle from her paternal side. SOCIAL HISTORY: The patient is a former smoker who smoked 1 pack per day for 10 years and quit 3 to 4 years ago. 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 REVIEW OF SYSTEMS: See HPI. Otherwise, 14-point review of systems were reviewed and were otherwise negative. PHYSICAL EXAM: General: She is a morbidly obese, upper middle aged female, appears comfortable and in no acute distress or discomfort at the time of consultation. Vitals: Reveal blood pressure of 123/87, pulse of 77, temperature of 99.0, respirations of 12, and O2 sat of 97% on room air. HEENT: Head is normocephalic and atraumatic. Sclerae anicteric. PERRLA. EOMs intact. Oropharynx is pink and moist. Neck: Supple. Trachea midline. No cervical adenopathy or thyromegaly. Lungs: Clear to auscultation bilaterally. Heart: Regular rate and rhythm. Normal S1 and S2 without rubs, murmurs, or gallops. Back: Normal curvature. No CVA tenderness. Breast exam deferred at this time. Abdomen: Soft, nontender, and nondistended. No hernias, masses, or hepatosplenomegaly. Extremities: Without cyanosis, clubbing, or edema. Left knee is secured with Maury wrap as well as a cooling circulating device. Neurologic: She is awake and alert x3 and neurologic exam is grossly intact. Rectal exam deferred at this time. LABORATORY WORKUP: She had laboratory workup performed on 07/08/17 with white count of 9000, hemoglobin 12.5, hematocrit 38, and platelets of 286,000. Chemical panel performed on the same day revealed sodium of 138, potassium 4.4, chloride 100, CO2 of 31, BUN of 13, and creatinine of 1.25. Her glucose was 306 , hemoglobin A1c dated back in September 2016 was 6.9. ACCESSORY DIAGNOSTIC DATA: Left knee x-ray in the postoperative period revealed left knee replacement in satisfactory position. ASSESSMENT: A 67-year-old female with longstanding history of left knee osteoarthritis as well as past medical history of hypertension, hyperlipidemia, diabetes mellitus type 2 who is postop day #0 status post left total knee arthroplasty. PLAN/RECOMMENDATIONS: 1. Status post left total knee arthroplasty. Management is by orthopedic team. PT and OT orders are in place. She seems to be comfortable and use analgesic as needed for pain control. She also has a bowel regimen order in place. Anticipate anticoagulation given her history of deep venous thrombosis and she will be covered with Lovenox subcu daily as well as initiating Coumadin therapy for the time being. Daily checks of INR is in place as well. 2. Hypertension. She appears to be normotensive in the postoperative period and will continue her on irbesartan, her home prescription. 3. Type 2 diabetes mellitus. At this point, we will hold her glipizide and metformin given her hyperglycemic readings prior to surgery as well as elevated hemoglobin A1c. We will continue blood glucose checks q.a.c. and q.h.s. and coverage per sliding scale given her elevated BMI. 4. Hyperlipidemia. We will continue her statin. 5. Gastroesophageal reflux disease. She will continue her H2 semaj as prescribed. 6. DVT prophylaxis per orthopedic team, Lovenox transitioning to oral Coumadin. 7. Code status, she is a full code. TIME SPENT: I spent approximately 45 minutes in this consultation with greater than 50% spent on [id number] taking history and performing physical exam. I have discussed the case with Dr. Hernandez, my attending, who is in agreement with plans and we will follow her up accordingly. JOB PATINO [id number]/CPS #: [id number] ADRIENNE
[2017-08-27] MEDS: Acetaminophen TAB* 325 MG PO PRN (19:40)
[2017-08-27] MEDS ORDERED: metFORMIN* 1,000 MG TAB PO SCH (21:00)
[2017-08-27] MEDS: Docusate CAP* 100 MG PO SCH (22:54)
[2017-08-27] MEDS: Magnesium Hydroxide LIQ* 30 ML UDC PO SCH (22:54)
--- NOTE | 2017-08-28 04:45 | OP ---
CC: Dr. Eller * DATE OF OPERATION: 08/27/17 - ROOM #340 DATE OF : 54 SURGICAL CARE: Left knee. SURGEON: Zachariah Salcido MD ASSISTANTS: 1. JOB Jimenez first aid instructor. 2. Shalini Shelton, contract technician. ANESTHESIOLOGIST: Dr. Zak Shipley. ANESTHESIA: Left thigh adductor canal block and spinal with IV sedation. PRE-OP DIAGNOSIS: Severe arthritis of the left knee in the lateral compartment. POST-OP DIAGNOSIS: Severe arthritis of the left knee in the lateral compartment. OPERATIVE PROCEDURE: Left total knee replacement. COMPONENTS UTILIZED: Radha Persona knee. All components were cemented, a size 32 patella, a size 6 left femur, a size E left tibia, and a 10 articular surface. COMPLICATIONS: There were no complications. DRAINS: Two drains, left knee for blood collection at the end of the case. BLOOD LOSS: 200 mL. REPLACEMENT: Crystalloid fluids. Tourniquet control was utilized just in the cleanup and cementing phase of this case. TOURNIQUET: 300. INDICATIONS: Severe arthritis of the left knee, it has been no longer responsive to nonoperative care and the left total knee was recommended. DESCRIPTION OF PROCEDURE: The patient was brought to the operating room and placed on the operating table in a supine position. After the canal block had been done in the holding area by Dr. Shipley in the operating room in the seated position, the spinal anesthetic was administered. The patient was returned to the supine position. A Oscar catheter was inserted. The left proximal thigh was wrapped with a tourniquet. The posterior tibial pulse was noted to be 2+ and the left lower extremity was given a preliminary chlorhexidine prep and then a formal ChloraPrep from the tourniquet to the tips of the toes. After prepping, draping and sealing off, we did our universal protocol time-out confirming Shalini Cabrera and a plan for left total knee replacement, we all agreed and we proceeded. The surgical care was done with the knee on a padded foot piece and the hip and knee acutely flexed. The skin incision went from two finger-breadths proximal to the superior pole of the patella to the medial aspect of the tibial tubercle. Careful hemostasis was checked and achieved throughout the case utilizing electrocautery. The knee was entered medial parapatellar, the quad tendon divided at the junction at the rectus femoris and vastus medialis staying as close to the vastus medialis muscle in the tendon as possible. The knee was completely eburnated and the lateral compartment was scoping out of the lateral tibial plateau. Osteophytes in the intercondylar notch, osteophytes medially and laterally. The patella was made so that it could be everted. The anteromedial soft tissues on the tibia were elevated subperiosteally going around to the deep MCL and then to the posteromedial corner of the knee. The remains of the anterior horn and medial meniscus were carefully excised. The osteophytes were removed. The ACL and PCL were uplifted from their femoral origins and the tibia was made so that it could be subluxated forward from under the femur. The distal anterior femur was exposed subperiosteally for referencing and measuring. At this point, we made our proximal tibial cut and our goal of this cut was to have a tibial surface that would be perpendicular to the long axis of the tibia and have a slight posterior slope removing just 0 to 2 mm of bone on the low side of the lateral tibial plateau. The femoral intramedullary drill was utilized in the intramedullary canal, the femur was suctioned to discourage embolization. The distal femoral cutting guide was applied with 6 degrees of valgus and this cut was completed. The extension gap was satisfactory for a 10, and the femur was then measured for a size 6. The anterior, posterior and chamfering cuts were completed. We then finished removal of the posterior horn medial meniscus carefully preserving the MCL, posterior horn lateral meniscus, and the PCL. Osteophyte was removed from the posterior medial femoral condyle. At this stage , we had nice ligamentous balance and 90 degrees of flexion with a 10. The femur was completed with the intercondylar cutout. The femur was then irrigated and suctioned x6 and emptied and bone plug inserted. The tibia was then completed for a size E and the knee was articulated and extended with a E tibia, 10 articular surface, and a 6 femur with full knee extension, stable ligaments in extension and stable ligaments in 90 degrees of flexion. The patella was cut flat, a 32 was chosen, 3 drill holes were made. These were undercut for optimal cement interdigitation. A lateral release was not necessary. The leg was then exsanguinated. The tourniquet elevated to 300. The knee was cleaned in extension with pulsed saline 2.5 L. The knee was then cleaned in flexion with retractors in place and all bony surfaces were cleaned with the pulsed saline and then dried carefully. The cement was mixed and the components were cemented into position. The patella followed by the tibia, followed by the femur, each was impacted. Excess cement was removed and the knee was articulated and extended during the final hardening. The posteromedial and medial soft tissues, pericapsular tissues were infiltrated with Marcaine 0.5% without epinephrine mixed with 1% Xylocaine with epinephrine, approximately 30 mL were utilized. During closure, we checked and achieved hemostasis. We irrigated several times with saline. The quad mechanism closed with interrupted #1 Vicryl in a [id number] fashion. The drains were brought out to superolateral suprapatellar pouch. The medial retinaculum closed with #1 Vicryl and then distally we used 0 Vicryl. Deep fashion bursa closed with interrupted 0 Vicryl and the superficial subcu closed with 3-0 Vicryl and the skin then closed with marina. The knee was extended completely and flexed completely past 130 degrees several times during the closure. Dressing was done after washing and drying with Betadine soaked release sterile gauze, sterile Webril and then cryotherapy cuff, ABD pads and a 6-inch Maury bandage loosely applied. The patient was returned to the recovery room in stable and satisfactory condition, having tolerated the procedure very well. [id number]/[facility] #: [id number] ADRIENNE
[2017-08-28] MEDS: oxyCODONE/Acetamin 5/325 MG* TAB PO PRN ×3 (06:18→18:46)
--- NOTE | 2017-08-28 07:01 | PN ---
Progress Note - Progress Note Date of Service: 08/28/17 Note: VSStable. Awake, alert, cooperative, breathing easily. I and O are satisfactory. 2 drains removed left knee. Left PT pulse is 2 plus. Left foot sensory and movements all intact. Can do a leg lift, barely. Labs Pending Imp: Stable. Plans: TKR protocol
[2017-08-28] MEDS: ceFAZolin 1 GM in Dextrose (*) 1 GM/50 ML BAG IVPB SCH (07:30)
[2017-08-28 08:17] LABS: Hematocrit 29 % (35-47); Hemoglobin 9.7 g/dl (12.0-16.0); INR 0.97 (0.77-1.02); Mean Platelet Volume 8.5 um3 (7.4-10.4); Platelet Count 243 10^3/ul (150-450)
[2017-08-28] MEDS ORDERED: glipiZIDE TAB* 5 MG PO SCH (09:00)
[2017-08-28] MEDS: Losartan TAB* 25 MG PO SCH (09:10)
[2017-08-28] MEDS: oxyCODONE TAB* 5 MG TAB PO PRN ×3 (09:10→20:16)
[2017-08-28] MEDS: Docusate CAP* 100 MG PO SCH ×2 (09:10→20:06)
[2017-08-28] MEDS: Magnesium Hydroxide LIQ* 30 ML UDC PO SCH ×2 (09:10→20:06)
[2017-08-28] MEDS: Insulin LISPRO* 1 UNITS UNIT SUBCUT SCH ×4 (09:11→20:06)
[2017-08-28] MEDS: Rivaroxaban TAB(*) 10 MG PO SCH (11:56)
[2017-08-28] MEDS ORDERED: Enoxaparin(*) 40 MG/0.4 ML SYR SUBCUT SCH (12:00)
--- NOTE | 2017-08-28 14:15 | PN ---
Subjective Date of Service: 08/28/17 Interval History: Patient in significant pain with activity but none at rest. Patient has had paul out and is urinating well. Patient has been passing gas and denies CP, SOB , Dizziness, F/C, N/V, abdominal pain, dysuria, palpitations, numbness or tingling, or other pain. Patient states that she has never had a non-provoked blood clot and is not willing to take warfarin and as such would like Xarelto. Family History: Unchanged from Admission Social History: Unchanged from Admission Past Medical History: Unchanged from Admission Objective Active Medications: Acetaminophen (Tylenol Tab*) 650 mg PO Q4H PRN PRN Reason: PAIN Last Admin: 08/27/17 19:40 Dose: 650 mg Cyclobenzaprine HCl (Flexeril Tab*) 10 mg PO TID PRN PRN Reason: SPASMS Dextrose (D50w Syringe 50 Ml*) 12.5 gm IV PUSH .FOR FS < 60 - SS PRN PRN Reason: FS < 60 Diphenhydramine HCl (Benadryl Iv*) 25 mg IV Q6H PRN PRN Reason: itching Diphenhydramine HCl (Benadryl Po*) 25 mg PO Q6H PRN PRN Reason: itching Docusate Sodium (Colace Cap*) 100 mg PO BID [facility] Last Admin: 08/28/17 09:10 Dose: 100 mg Famotidine (Pepcid Tab*) 40 mg PO QPM [facility] Last Admin: 08/27/17 18:06 Dose: 40 mg Hydromorphone HCl (Dilaudid Inj*) 0.5 mg IV SLOW PU Q4H PRN PRN Reason: PAIN - UNRELIEVED Hydromorphone HCl (Dilaudid Inj*) 1 mg IV SLOW PU Q4H PRN PRN Reason: PAIN - UNCONTROLLED Lactated Ringer's (Lactated Ringers 1000 Ml Bag*) 1,000 mls @ 100 mls/hr IV PER RATE [facility] Last Admin: 08/27/17 22:41 Dose: 100 mls/hr Insulin Human Lispro (Humalog*) 0 units SUBCUT ACHS [facility]; Protocol Last Admin: 08/28/17 12:06 Dose: 6 units Losartan Potassium (Cozaar Tab*) 25 mg PO QAM [facility] Last Admin: 08/28/17 09:10 Dose: 25 mg Magnesium Hydroxide (Milk Of Magnesia Liq*) 30 ml PO BID [facility] Last Admin: 08/28/17 09:10 Dose: 30 ml Magnesium Hydroxide (Milk Of Magnesia Liq*) 30 ml PO Q6H PRN PRN Reason: constipation Ondansetron HCl (Zofran 40 Mg Vial*) 4 mg IV Q6H PRN PRN Reason: nausea Ondansetron HCl (Zofran Tab*) 4 mg PO Q6H PRN PRN Reason: NAUSEA Oxycodone HCl (Roxycodone Tab*) 10 mg PO Q4H PRN PRN Reason: PAIN - SEVERE Last Admin: 08/28/17 09:10 Dose: 5 mg Oxycodone/Acetaminophen (Percocet 5/325 Tab*) 2 tab PO Q4H PRN PRN Reason: PAIN - MODERATE Last Admin: 08/28/17 11:55 Dose: 2 tab Oxycodone/Acetaminophen (Percocet 5/325 Tab*) 1 tab PO Q4H PRN PRN Reason: PAIN - MILD Pravastatin Sodium (Pravachol (Nf)) 10 mg PO QPM [facility] Last Admin: 08/27/17 18:06 Dose: 10 mg Rivaroxaban (Xarelto(*)) 10 mg PO DAILY [facility] Last Admin: 08/28/17 11:56 Dose: 10 mg Vital Signs - 8 hr 08/28/17 08/28/17 08/28/17 06:18 07:36 09:10 Temperature 98.2 F Pulse Rate 79 Respiratory 16 16 18 Rate Blood Pressure 137/49 (mmHg) O2 Sat by Pulse 96 Oximetry 08/28/17 08/28/17 08/28/17 11:50 11:55 12:07 Temperature 97.5 F Pulse Rate 78 Respiratory 16 18 18 Rate Blood Pressure 119/53 (mmHg) O2 Sat by Pulse 99 Oximetry 08/28/17 12:08 Temperature Pulse Rate Respiratory 18 Rate Blood Pressure (mmHg) O2 Sat by Pulse Oximetry Oxygen Devices in Use Now: None Appearance: Patient is a 67yo female who appears stated age and is sitting in the bed in [facility]. Eyes: No Scleral Icterus, PERRLA Ears/Nose/Mouth/Throat: NL Teeth, Lips, Gums, Clear Oropharnyx, Mucous Membranes Moist Neck: NL Appearance and Movements; NL JVP, Trachea Midline Respiratory: Symmetrical Chest Expansion and Respiratory Effort, Clear to Auscultation Cardiovascular: NL Sounds; No Murmurs; No JVD, RRR, - - 1+ edema in LLE Abdominal: NL Sounds; No Tenderness; No Distention, No Hepatosplenomegaly Lymphatic: No Cervical Adenopathy Extremities: No Clubbing, Cyanosis Skin: No Rash or Ulcers, No Nodules or Sclerosis Neurological: Alert and Oriented x 3, NL Sensation, NL Muscle Strength and Tone , - - CN II-XII intact Result Diagrams: 08/28/17 07:42 08/28/17 07:42 Assess/Plan/Problems-Billing Assessment: Patient is a 67yo female with a PMH for HTN, DM II, and provoked DVT who is S/P LTKA and is doing well. - Patient Problems (1) Post-operative state Current Visit: Yes Status: Acute Code(s): Z98.890 - OTHER SPECIFIED POSTPROCEDURAL STATES SNOMED Code(s): 26580024 Comment: Management per primary team. Pain well controlled. H/H decreased expected amount. Urinating with paul removed. PT/OT. No BM. (2) HTN (hypertension) Current Visit: Yes Status: Acute Code(s): I10 - ESSENTIAL (PRIMARY) HYPERTENSION SNOMED Code(s): 41472270 Comment: Normotensive, continue Losartan. (3) DM II (diabetes mellitus, type II), controlled Current Visit: Yes Status: Acute Code(s): E11.9 - TYPE 2 DIABETES MELLITUS WITHOUT COMPLICATIONS SNOMED Code(s): 57387010 Comment: Poorly controlled. Will increase SSI. Resume oral medications at home. (4) HLD (hyperlipidemia) Current Visit: Yes Status: Acute Code(s): E78.5 - HYPERLIPIDEMIA, UNSPECIFIED SNOMED Code(s): 22520372 Comment: Continue Pravastatin (5) GERD (gastroesophageal reflux disease) Current Visit: Yes Status: Acute Code(s): K21.9 - GASTRO-ESOPHAGEAL REFLUX DISEASE WITHOUT ESOPHAGITIS SNOMED Code(s): 580608532 Comment: Continue Famotidine. (6) DVT prophylaxis Current Visit: Yes Status: Acute Code(s): TVL3834 - SNOMED Code(s): 781732553 Comment: Donna (7) Full code status Current Visit: Yes Status: Acute Code(s): Z78.9 - OTHER SPECIFIED HEALTH STATUS SNOMED Code(s): 356520674 Status and Disposition: Inpatient. Management per primary team.
[2017-08-28] MEDS: Famotidine TAB* 20 MG PO SCH (17:44)
[2017-08-28] MEDS: CMC:Pravastatin (NF) 20 MG TAB PO SCH (17:44)
[2017-08-29] MEDS: oxyCODONE TAB* 5 MG TAB PO PRN ×2 (04:00→11:56)
[2017-08-29 06:41] LABS: Hematocrit 28 % (35-47); Hemoglobin 9.8 g/dl (12.0-16.0); Mean Platelet Volume 8.5 um3 (7.4-10.4); Platelet Count 220 10^3/ul (150-450)
[2017-08-29 06:44] LABS: INR 0.94 (0.77-1.02)
--- NOTE | 2017-08-29 08:18 | PN ---
Progress Note - Progress Note Date of Service: 08/29/17 Note: VSStable Temp 98.9 Intake 2550, Output 2400 Awake, alert, cooperative and braeathing easily. Left knee surgery is swollen, spots of sanguinous drainage, redressed with betadine telfa. N/V left foot intact On Xarelto Imp: Acute blood loss anemia. Stable after TKR Plans: Up with walker
[2017-08-29] MEDS: Rivaroxaban TAB(*) 10 MG PO SCH (08:21)
[2017-08-29] MEDS: oxyCODONE/Acetamin 5/325 MG* TAB PO PRN (08:21)
[2017-08-29] MEDS: Losartan TAB* 25 MG PO SCH (08:21)
[2017-08-29] MEDS: Magnesium Hydroxide LIQ* 30 ML UDC PO SCH (08:21)
[2017-08-29] MEDS: Docusate CAP* 100 MG PO SCH (08:21)
[2017-08-29] MEDS: Insulin LISPRO* 1 UNITS UNIT SUBCUT SCH ×2 (08:22→11:56)
[2017-08-29] MEDS: Acetaminophen TAB* 325 MG PO PRN (11:56)
[2017-08-29 12:07] VITALS: BP 125/57
[2017-08-29] MEDS ORDERED: HYDROmorphone INJ* 0.5 MG/0.5 ML SYRINGE IV SLOW PU PRN ×2 (14:36→15:00)
--- NOTE | 2017-08-30 02:17 | DS ---
DISCHARGE SUMMARY: DATE OF ADMISSION: 08/27/17. DATE OF DISCHARGE: 08/29/17 ATTENDING SURGEON: Zachariah Salcido MD * (DICTATED BY JOB DOBSON) PRINCIPAL DIAGNOSIS: Severe arthritis of the left knee. DISCHARGE DIAGNOSIS: Severe arthritis of the left knee. HISTORY OF PRESENT ILLNESS: Ms. Cabrera is a 67-year-old female with continued complaints of left knee pain. She had failed conservative treatment and elected to proceed with a left total knee arthroplasty. HOSPITAL COURSE: Ms. Cabrera was admitted electively to the hospital on 08/27/17 and underwent a left total knee arthroplasty. She tolerated the procedure well without complications. Postoperatively, she was placed on Xarelto for DVT prophylaxis. On postoperative day 1, her H and H was 9.7 and 29; on postoperative day 2, 9.8 and 28. At the time of discharge, on 08/29/17, she was afebrile and her vital signs were stable. She was discharged home in stable condition. DISCHARGE MEDICATIONS: 1. She was given Percocet 5/325, 1 to 2 tabs every 4 to 6 hours as needed for pain. 2. She was given Flexeril 10 mg tabs to take one, 2 to 3 times daily for muscle spasms. 3. Colace 100 mg 1 tab 2 to 3 times daily as needed for constipation. 4. She was given Zofran 4 mg tabs every 6 hours as needed for nausea. 5. Xarelto 10 mg daily. 6. Cozaar 25 mg daily. 7. Pravachol 10 mg daily. PHYSICAL EXAMINATION: Upon discharge, she was afebrile. Her vital signs were stable. The wound was clean and dry. She was ambulating well with the aid of a walker. She was distally neurovascularly intact. DISCHARGE INSTRUCTIONS: She was discharged home in stable condition. She is on Xarelto 10 mg daily for DVT prophylaxis. She was given Percocet and Flexeril for pain, Colace for constipation, and Zofran for nausea. She can start showering tomorrow. She is weightbearing as tolerated. She will follow up with Dr. Salcido in 2 weeks in clinic. JOB DOBSON [id number]/[facility] #: [id number] MTDD
== END 2017-08-29 15:10 | disposition home health service (06) | DRG 470 ==
LOC: AA 08-27 06:15 → SSU 08-27 12:29
PROVIDERS: ADMIT Orthopaedic Surgery; ATTEND Orthopaedic Surgery
PROC: 0SRD0J9 Replacement of Left Knee Joint with Synthetic Substitute, Cemented, Open Approach (ICD-10-PCS; principal; 2017-08-27 07:30)
DX: M17.12 Unilateral primary osteoarthritis, left knee (principal); E11.9 Type 2 diabetes mellitus without complications; I10 Essential (primary) hypertension; E78.5 Hyperlipidemia, unspecified; K21.9 Gastro-esophageal reflux disease without esophagitis; Z96.651 Presence of right artificial knee joint; M21.062 Valgus deformity, not elsewhere classified, left knee; M25.762 Osteophyte, left knee; K58.9 Irritable bowel syndrome, unspecified; F41.9 Anxiety disorder, unspecified; E66.01 Morbid (severe) obesity due to excess calories; D62 Acute posthemorrhagic anemia; Z88.6 Allergy status to analgesic agent; Z80.0 Family history of malignant neoplasm of digestive organs; Z90.49 Acquired absence of other specified parts of digestive tract; Z82.49 Family history of ischemic heart disease and other diseases of the circulatory system; Z87.891 Personal history of nicotine dependence; Z72.89 Other problems related to lifestyle; Z68.42 Body mass index [BMI] 45.0-49.9, adult; Z79.01 Long term (current) use of anticoagulants; Z88.5 Allergy status to narcotic agent; Z86.718 Personal history of other venous thrombosis and embolism; Z88.0 Allergy status to penicillin; Z87.442 Personal history of urinary calculi
CPT/HCPCS: 36415; 80048; 85014; 85018; 85049; 85610; A9270-GY; C1776; G8978-GP-CL; G8979-GP-CI; G8987-GO-CJ; G8988-GO-CI; G8989-GO-CI; J0690; J1100; J1170; J2001; J2250; J2704; J2795; J3010

== ENCOUNTER 2017-10-03 14:04 | Observation (INO) | payer MEDICARE ==
--- OUTSIDE RECORDS SUMMARY | 2017-10-03 14:28 | XMS REPORT ---
:1950 External Reference #:[id number] Author Organization [facility] Address [address] [place] [address] Phone [phone] Care Team Providers Name Role Phone Danisha Eller Care Team Information Hot Patcher Unavailable Danisha Eller Primary Care Physician Unavailable Payers Type Date Identification Numbers Payment Provider Subscriber Commercial Effective: Policy Number: [id number] Medicare Blue Ppo Jose Cabrera 2017 Group Number: [id number] [address] [address] PayID: [id number] [place] [address] Problems Date Description Provider Status Onset: 01/22/2011 Arthralgia of the lower leg Danisha Eller M.D. Active Onset: 06/04/2011 Type 2 diabetes mellitus Danisha Eller M.D. 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 Active multiple joints Onset: 10/02/2011 Symptom of skin and integumentary Danisha Eller M.D. Active tissue Onset: 06/16/2012 Type II diabetes mellitus Danisha Eller M.D. Active uncontrolled Onset: 06/16/2012 Keloid scar Danisha Eller M.D. Active Onset: 09/19/2012 Tobacco user Danisha Eller M.D. Active Onset: 12/13/2014 Type II diabetes mellitus Danisha Eller M.D. Active uncontrolled Family History Date Family Member(s) Problem(s) Comments General Paternal siblings with Colon CANo fam hx AR.stroke,DM, Lung, Breast CA. Father 82, old age. Pacemaker. Mother 60's MVA. Had been healthy. Number of Children None Number of Siblings 6 siblings. Sister with heart diseaseNo cancer or diabetes2 uncles and an aunt had colon cancer Social History Type Date Description Comments Education Highest level of education completed is 12th grade Marital Status Patient is Living Situation no children. 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 Cigarette Use Former Cigarette Smoker QUIT DECEMBER 04, 2013. light smoker for 10 years. ETOH Use Occasional on Sundays, a couple of glasses of wine. Smoking Patient is a former smoker is on chantix. Daily Caffeine Consumes on average 3 cups non dairy creamer. of coffee per day Exercise Type/Frequency exercising knee. uses Current bicycle. treadmill - up to 6 minutes daily. Seat Belt/Car Seat Always uses a seat belt Allergies, Adverse Reactions, Alerts Date Description Reaction Status Severity Comments 11/30/2010 Penicillins active Flu Like Symptoms 10/02/2011 Lisinopril psychological - got very active "mean" and argumentative 10/12/2011 Morphine GI upset active 07/10/2017 Aspirin internal bleeding active internal bleeding. Medications Medication Date Status Form Strength Qnty SIG Indications Ordering Provider Omeprazole 10/02/ Active Capsules 20mg 90cap 1 by mouth K21.9 Danisha bejarano every day Prem Eller Blood Pressure 09/18/ Active Kit 1unit Take blood I10 Any Kim 2018 s pressure Johnston, every COSMETIC ACCOUNT COORDINATOR morning with feet flat on the floor and as needed for headache, dizziness Irbesartan 09/12/ Active Tablets 150mg 30tab 1 by mouth E11.65 Danisha Urena s every day Prem Eller Ranitidine HCL 06/06/ Active Tablets 300mg 90tab take one K21.9 Danisha Urena s tablet by frannie Eller at M.D. bedtime Lorazepam 08/14/ Active Tablets 1mg 30tab take F43.21 Any Arrington 2016 s one-half or Johnston, one tablet COSMETIC ACCOUNT COORDINATOR by mouth at at bedtime for sleep. Glipizide 11/04/ Active Tablets 5mg 60tab 1 by mouth Danisha Cait 2014 s in the Daphnie, morning. Prem Freestyle 05/28/ Active Misc 1Box test every Danisha Horton 2014 dx: Daphnie 250.00, MDannaDDanna last visit 05/10/14 Freestyle Lite 05/28/ Active Device 1unit testing Danisha Chavira Blood Glucose 2014 s every day Salvador Eller or as M.Alejandra System directed, dx 250.00, last visit 05/10/14 Freestyle Lite 05/28/ Active Strips 1box test once Danisha Chavira Test 2014 daily dx: Daphnie 250.00, Prem last visit 05/10/14 Metformin HCL 05/10/ Active Tablets 1000mg 60tab 1 by mouth Danisha Cait 2014 s twice a day Prem Eller Pravastatin 12/03/ Active Tablets 10mg 90tab 1 by mouth E11.65 Danisha Chavira Sodium 2013 s at night Prem Eller Centrum Silver / Active Tablets Adult 50 one by Unknown Adult 50+ 0000 mouth daily Garlic Oil / Active Capsules 1000mg One by Unknown 0000 mouth once a day Mobile 3 / Active Capsules 1000mg 1 by mouth Unknown 0000 once daily Oxycodone-Acetam / Active Tablets 5-325mg 1 by mouth Unknown inophen 0000 every 4 hours as needed for pain Cholestyramine 04/09/ Hx Powder 4GM/Dose 378gm 2 grams R19.7 Danisha Chavira 2016 - daily in 1 Daphnie, 01/25/ cup of MZach 2017 water, work up to 4 grams in water/liqui d daily Azithromycin 02/23/ Hx Tablets 250mg 7tabs 2 take by Safia Smith 2015 - mouth Jacki, 04/09/ tabletstoda CHAIN REPAIRER 2017 y,then one tab days 2-5 until finished Proair HFA 02/23/ Hx Aerosol 108(90Bas 8.500 2 puffs Safia Smith 2015 - e) gm every 4 Jacki, 10/02/ mcg/Act hours as CHAIN REPAIRER 2018 needed Hydrocodone-Acet 01/29/ Hx Tablets 7.5-325mg 120ta 1 by mouth M79.605 Danisha Chavira aminophen 2015 - bs four times Daphnie, 10/02/ daily M.D. 2018 Gabapentin 11/20/ Hx Capsules 300mg 180ca take one M76.32 Danisha Chavira 2015 - ps capsule by Daphnie, 02/23/ mouth every M.D. 2016 morning and 1 in the evening Xifaxan 11/20/ Hx Tablets 200mg 21tab 1 by mouth K58.0 Danisha Chavira 2015 - s three times Daphnie, 02/23/ daily x 7 M.D. 2016 days Physical Therapy 11/20/ Hx iliotibial M76.32 Danisha Chavira 2016 - band Daphnie, 02/23/ syndrome. M.D. 2016 Guaifenesin ER 06/13/ Hx Tablets 600mg 30tab 1 po bid J18.9 Amber 2015 - ER 12HR s Laly, 06/23/ Afnp-C 2016 Vitamin D 02/10/ Hx Capsules [id number] 12cap take 1 Danisha Chavira (Ergocalciferol) 2014 - capsule by Daphnie, 08/14/ mouth once M.D. 2016 monthly Mobic 12/13/ Hx Tablets 7.5mg 30tab 1 by mouth M15.0 Danisha Chavira 2014 - s every Daphnie, 02/23/ morning. M.D. 2016 Flexeril 09/23/ Hx Tablets 10mg 30tab 1 po tid 728.85 Aileen 2014 - mayn Aj, 10/03/ Afnp-C 2014 Chantix 12/17/ Hx Tablets 1mg 60tab 1 by mouth 305.1 Danisha Chavira 2013 - s bid. Daphnie, 05/10/ M.D. 2014 Metformin HCL 12/03/ Hx Tablets 500mg 180ta 1 by mouth 250.02 Sarah 2013 bs twice Jacki, 05/10/ daily. CHAIN REPAIRER 2014 Chantix Starting 10/19/ Hx Tablets 0.5mg X 1pack use as 305.1 Mary Hannah Glasgow 2013 & 1 mg directed [facility] 02/08/ X 42 2013 Clarithromycin 05/04/ Hx Tablets 500mg 20tab 1 po bid x 461.0 Mary 2013 - s 10 days [facility] 2013 Januvia 09/19/ Hx Tablets 100mg 30tab take one 250.02 Sarah 2012 tablet by Jacki, 05/10/ mouth one CHAIN REPAIRER 2014 time daily Chantix Starter 09/19/ Hx 1unit o.5 mg 305.1 Danisha Meeks 2012 - daily x 3 Daphnie, 09/19/ days. 0.5 M.D. 2013 mg bid day 4-7. 1 mg po bid thereafter. Chantix 09/19/ Hx Tablets 0.5mg 93tab 1 po daily 305.1 Danisha Chavira 2012 x 3 days. 1 Daphnie, 10/19/ po bid days M.D. 2013 4-7 2 po bid daily thereafter Chantix 09/19/ Hx Tablets 1mg 60tab 1 po bid. 305.1 Danisha Chavira 2012 after Daphnie, 10/19/ finished M.D. 2013 with starter pack. Irbesartan 09/19/ Hx Tablets 75mg 30tab 1 by mouth E11.65 Danisha Chavira 2012 - s every day Daphnie 09/12/ M.D. 2018 Waqar Contour 06/03/ Hx Strips 100un test as Danisha Chavira Blood Glucose 2012 - directed Daphnie, Test Strips 05/28/ twice a day M.D. 2014 Metformin HCL 05/08/ Hx Tablets 1000mg 60tab take one 250.02 Jose 2012 - tablet by Debra, 10/19/ mouth twice CHAIN REPAIRER 2013 a day Azithromycin 01/10/ Hx Tablets 500mg 5tabs 1 po qd x 461.0 Jose 2011 - 5d Debra, 05/08/ CHAIN REPAIRER 2012 Azithromycin 12/11/ Hx Tablets 250mg 12tab take 2 461.0 Jose 2011 - tablets by Debra, 01/10/ mouth x 3d CHAIN REPAIRER 2011 then take 1 tablet daily for next 6 days Proair HFA 12/11/ Hx Aerosol 108(90Bas 1unit 2 puffs q 461.0 Jose 2011 - e) mcg/ac s 3-4h prn Debra, 05/08/ cough/wheez CHAIN REPAIRER 2012 e/sob Robitussin A-C 12/11/ Hx 4Oz 1-2 tsp po 461.0 Jose 2012 - q4h prn Debra, 05/08/ cough CHAIN REPAIRER 2012 Hydrocodone/Acet 10/01/ Hx Tablets 2.5-500mg 30tab 1 po at hs 715.00 Danisha Chavira aminomare 2011 - s Daphnie, M.D. 2011 Lorazepam 08/13/ Hx Tablets 1mg 30tab 1 po tid Daphnie, 2011 - s for leg Danisha Chavira 10/01/ crampinge 2011 Hydrocodone/Acet 08/13/ Hx Tablets 5-500mg 60tab 1 po bid 719.46 Danisha Chaviar aminophen 2011 - Daphnie, M.D. 2011 Warfarin Sodium 07/18/ Hx Tablets 5mg 90tab 2 po qd or Danisha Chavira 2011 - s as directed Daphnie, M.D. 2011 Flexeril 07/18/ Hx Tablets 10mg 60tab 1 po bid 728.85 Danisha Chavira 2011 - Daphnie, M.D. 2011 Oxycodone/Acetam 07/18/ Hx Tablets 5-325mg 90tab 1-2 po q4 453.40 Danisha Chavira inomare 2011 - s hrs prn Daphnie, 08/13/ pain M.D. 2011 Lovenox 07/18/ Hx Solution 120mg/0.8 3unit inject sq Danisha Chavira 2011 - ML s bid Daphnie, M.D. 2011 Lisinopril 06/25/ Hx Tablets 5mg 30tab 1 po qd Danisha Chavira 2011 - s Daphnie, M.D. 2011 Contour Blood 06/03/ Hx 1Box use to 250.00 Danisha Chavira Test Strips 2012 - measure Daphnie, 09/19/ blood sugar M.D. 2013 bid Lancets 06/03/ Hx 200un test blood 250.00 Danisha Chavira 2012 - its sugar twice Daphnie, 05/28/ daily mail M.D. 2015 to patient. Metformin HCL 05/30/ Hx Tablets 500mg 100ta 1 po bid 250.00 Danisha Chavira 2012 - bs Daphnie, 05/08/ M.D. 2013 Chantix Starter 03/06/ Hx 1unit o.5 mg 305.1 Danisha Chavira Constantino 2011 - s daily x 3 Daphnie, 05/21/ days. 0.5 M.D. 2012 mg bid day 4-7. 1 mg po bid thereafter. Lorazepam / Hx Tablets 1mg 30tab 1 po tid Unknown 0000 - s for leg 08/13/ crampinge 2011 Fish Oil / Hx Capsules 1200mg 1 po qd Unknown 0000 - DR 2016 Immunizations CPT Code Status Date Vaccine Lot # [id number] Given 09/19/2012 Pneumococcal Immunization [id number] Given 06/16/2012 Tdap Tetanus, W Pertussis [id number] Vital Signs Date Vital Result Comment 10/02/2017 BP Systolic 124 mmHg BP Diastolic 72 mmHg Heart Rate 96 /min Body Temperature 97.9 F Respiratory Rate 16 /min Height 63.5 inches 5'3.50" Weight 266.25 lb BMI (Body Mass Index) 46.4 kg/m2 09/27/2017 BP Systolic 124 mmHg BP Diastolic 68 mmHg Heart Rate 74 /min Body Temperature 98.0 F Respiratory Rate 17 /min Height 63.5 inches 5'3.50" Weight 267.50 lb BMI (Body Mass Index) 46.6 kg/m2 09/18/2017 BP Systolic 140 mmHg BP Diastolic 70 mmHg Heart Rate 92 /min Body Temperature 97.9 F Respiratory Rate 18 /min Height 63.5 inches 5'3.50" Weight 267.00 lb BMI (Body Mass Index) 46.5 kg/m2 07/10/2017 BP Systolic 162 mmHg BP Diastolic 90 mmHg Heart Rate 76 /min Body Temperature 98.6 F Respiratory Rate 16 /min Height 63.5 inches 5'3.50" Weight 276.00 lb BMI (Body Mass Index) 48.1 kg/m2 06/06/2017 BP Systolic 140 mmHg BP Diastolic 78 mmHg Heart Rate 64 /min Body Temperature 98.0 F Respiratory Rate 18 /min Height 63.5 inches 5'3.50" Weight 266.00 lb BMI (Body Mass Index) 46.4 kg/m2 01/25/2017 BP Systolic 145 mmHg BP Diastolic 86 mmHg Heart Rate 80 /min Body Temperature 97.7 F Height 63.5 inches 5'3.50" Weight 255.00 lb BMI (Body Mass Index) 44.5 kg/m2 01/09/2017 BP Systolic 130 mmHg BP Diastolic 82 mmHg Heart Rate 72 /min Body Temperature 97.9 F Respiratory Rate 16 /min Height 63.5 inches 5'3.50" Weight 255.00 lb BMI (Body Mass Index) 44.5 kg/m2 09/17/2016 BP Systolic 120 mmHg BP Diastolic 80 mmHg Heart Rate 88 /min Body Temperature 98.3 F Respiratory Rate 18 /min Height 63.5 inches 5'3.50" Weight 253.00 lb BMI (Body Mass Index) 44.1 kg/m2 04/09/2016 BP Systolic 142 mmHg BP Diastolic 80 mmHg Heart Rate 78 /min Body Temperature 98.2 F Respiratory Rate 16 /min Height 63.5 inches 5'3.50" Weight 261.00 lb BMI (Body Mass Index) 45.5 kg/m2 02/24/2016 BP Systolic 150 mmHg BP Diastolic 80 mmHg Heart Rate 96 /min Body Temperature 98.6 F Height 63.5 inches 5'3.50" Weight 260.00 lb BMI (Body Mass Index) 45.3 kg/m2 01/30/2016 BP Systolic 156 mmHg BP Diastolic 74 mmHg Heart Rate 78 /min Body Temperature 98.6 F Respiratory Rate 16 /min Height 63.5 inches 5'3.50" 11/21/2015 BP Systolic 156 mmHg BP Diastolic 80 mmHg Heart Rate 78 /min Body Temperature 98.1 F Respiratory Rate 16 /min Height 63.5 inches 5'3.50" Weight 272.00 lb BMI (Body Mass Index) 47.4 kg/m2 08/15/2015 BP Systolic 134 mmHg BP Diastolic 80 mmHg Heart Rate 66 /min Body Temperature 98.6 F Respiratory Rate 16 /min Height 63.5 inches 5'3.50" Weight 273.50 lb BMI (Body Mass Index) 47.7 kg/m2 06/14/2015 BP Systolic 150 mmHg BP Diastolic 80 mmHg Heart Rate 88 /min Body Temperature 98.2 F Respiratory Rate 18 /min O2 % BldC Oximetry 99 % Height 63.5 inches 5'3.50" Weight 273.00 lb BMI (Body Mass Index) 47.6 kg/m2 02/10/2015 BP Systolic 120 mmHg BP Diastolic 82 mmHg Heart Rate 72 /min Body Temperature 97.9 F Respiratory Rate 16 /min Height 63.5 inches 5'3.50" Weight 265.00 lb BMI (Body Mass Index) 46.2 kg/m2 12/13/2014 BP Systolic 136 mmHg BP Diastolic 66 mmHg Heart Rate 90 /min Body Temperature 98.8 F Respiratory Rate 16 /min Height 63.5 inches 5'3.50" Weight 267.25 lb BMI (Body Mass Index) 46.6 kg/m2 11/04/2014 BP Systolic 120 mmHg BP Diastolic 70 mmHg Heart Rate 80 /min Body Temperature 98.5 F Respiratory Rate 18 /min Height 63.5 inches 5'3.50" Weight 268.00 lb BMI (Body Mass Index) 46.7 kg/m2 09/23/2014 BP Systolic 142 mmHg BP Diastolic 84 mmHg Heart Rate 92 /min Body Temperature 98.1 F Height 63.5 inches 5'3.50" Weight 267.25 lb BMI (Body Mass Index) 46.6 kg/m2 05/10/2014 BP Systolic 150 mmHg BP Diastolic 84 mmHg Heart Rate 66 /min Body Temperature 97.8 F Respiratory Rate 18 /min Height 63.5 inches 5'3.50" Weight 263.00 lb BMI (Body Mass Index) 45.9 kg/m2 02/08/2014 BP Systolic 138 mmHg BP Diastolic 70 mmHg Heart Rate 78 /min Body Temperature 98.3 F Respiratory Rate 16 /min Height 63.5 inches 5'3.50" Weight 254.00 lb BMI (Body Mass Index) 44.3 kg/m2 12/03/2013 BP Systolic 140 mmHg BP Diastolic 80 mmHg Heart Rate 70 /min Body Temperature 97.2 F Respiratory Rate 18 /min Height 63.5 inches 5'3.50" Weight 248.00 lb BMI (Body Mass Index) 43.2 kg/m2 10/19/2013 BP Systolic 140 mmHg BP Diastolic 80 mmHg Heart Rate 68 /min Body Temperature 98.5 F Respiratory Rate 18 /min Height 63.5 inches 5'3.50" Weight 245.00 lb BMI (Body Mass Index) 42.7 kg/m2 05/04/2013 BP Systolic 144 mmHg BP Diastolic 90 mmHg Heart Rate 80 /min Body Temperature 98.0 F Respiratory Rate 18 /min Height 63.5 inches 5'3.50" Weight 254.00 lb BMI (Body Mass Index) 44.3 kg/m2 09/19/2012 BP Systolic 146 mmHg BP Diastolic 80 mmHg Heart Rate 92 /min Body Temperature 97.6 F Respiratory Rate 16 /min Height 63.5 inches 5'3.50" Weight 256.00 lb BMI (Body Mass Index) 44.6 kg/m2 07/01/2012 BP Systolic 136 mmHg BP Diastolic 80 mmHg Heart Rate 84 /min Body Temperature 98.9 F Respiratory Rate 18 /min Height 63.5 inches 5'3.50" 06/19/2012 BP Systolic 130 mmHg BP Diastolic 72 mmHg Heart Rate 80 /min Body Temperature 99.1 F Height 63.5 inches 5'3.50" 06/16/2012 BP Systolic 156 mmHg BP Diastolic 86 mmHg Heart Rate 78 /min Body Temperature 98.5 F Respiratory Rate 18 /min Height 63.5 inches 5'3.50" Weight 265.12 lb BMI (Body Mass Index) 46.2 kg/m2 05/08/2012 BP Systolic 130 mmHg BP Diastolic 80 mmHg Heart Rate 80 /min Body Temperature 98.6 F Respiratory Rate 16 /min Height 63.5 inches 5'3.50" Weight 267.00 lb BMI (Body Mass Index) 46.5 kg/m2 12/12/2011 BP Systolic 120 mmHg BP Diastolic 88 mmHg Heart Rate 92 /min Body Temperature 99.2 F Height 63.5 inches 5'3.50" Weight 263.00 lb BMI (Body Mass Index) 45.9 kg/m2 10/12/2011 BP Systolic 140 mmHg BP Diastolic 80 mmHg Heart Rate 80 /min Body Temperature 98.0 F Height 63.5 inches 5'3.50" Weight 262.00 lb BMI (Body Mass Index) 45.7 kg/m2 10/02/2011 BP Systolic 142 mmHg BP Diastolic 78 mmHg Heart Rate 76 /min Body Temperature 98.6 F Height 63.5 inches 5'3.50" Weight 254.00 lb BMI (Body Mass Index) 44.3 kg/m2 08/14/2011 BP Systolic 138 mmHg BP Diastolic 78 mmHg Heart Rate 88 /min Body Temperature 98.2 F Height 63.5 inches 5'3.50" Weight 251.00 lb BMI (Body Mass Index) 43.8 kg/m2 07/19/2011 BP Systolic 120 mmHg BP Diastolic 80 mmHg Heart Rate 68 /min Body Temperature 98.7 F Height 63.5 inches 5'3.50" 07/16/2011 BP Systolic 120 mmHg BP Diastolic 80 mmHg Heart Rate 80 /min Body Temperature 99.0 F Height 63.5 inches 5'3.50" 06/04/2011 BP Systolic 120 mmHg BP Diastolic 80 mmHg Heart Rate 68 /min Body Temperature 98.2 F Height 63.5 inches 5'3.50" Weight 261.00 lb BMI (Body Mass Index) 45.5 kg/m2 05/31/2011 BP Systolic 120 mmHg BP Diastolic 70 mmHg Heart Rate 72 /min Height 63.5 inches 5'3.50" Weight 261.00 lb BMI (Body Mass Index) 45.5 kg/m2 05/22/2011 BP Systolic 118 mmHg BP Diastolic 84 mmHg Heart Rate 84 /min Body Temperature 98.4 F Height 63.5 inches 5'3.50" Weight 261.00 lb BMI (Body Mass Index) 45.5 kg/m2 03/06/2011 BP Systolic 110 mmHg BP Diastolic 78 mmHg Heart Rate 88 /min Body Temperature 98.2 F Height 63.5 inches 5'3.50" Weight 258.00 lb BMI (Body Mass Index) 45.0 kg/m2 11/30/2010 BP Systolic 120 mmHg BP Diastolic 70 mmHg Heart Rate 80 /min Body Temperature 98.8 F Height 63.5 inches 5'3.50" Weight 258.00 lb BMI (Body Mass Index) 45.0 kg/m2 Results Test Date Test Result H/L Range Note Laboratory test finding 09/27/2017 Hemoglobin A1c (Fma) 7.2 % High 4.1- 5.7 Comprehensive Metabolic 09/27/2017 Sodium 139 mEq/L 134-149 Prof Potassium 4.6 mEq/L 3.6-5.5 Chloride 103 mEq/L 94-112 Carbon Dioxide 25 mEq/L 21-32 Glucose 221 mg/dL High 70-105 BUN 15 mg/dL 6-26 Creatinine 0.7 mg/dL 0.6-1.4 BUN/Creat Ratio 21.4 CALC 8.0-36.0 Calcium 9.1 mg/dL 8.6-10.2 Total Protein 6.5 g/dL 6.4-8.3 Albumin 4.1 g/dL 3.8-5.5 Globulin 2.4 g/dL 2.0-4.8 A/G Ratio 1.7 CALC 0.6-2.3 Alk. Phosphatase 79 U/L 30-110 Alt (SGPT) 12 U/L 7-35 Ast (Sgot) 8 U/L 5-34 Total Bilirubin 0.7 mg/dL 0.2-1.3 GFR Non- >60 ml/min/1.73m^ >=60 GFR >60 ml/min/1.73m^ >=60 CBC Electronic Fma 09/27/2017 WBC 6.6 x10^3/UL 4.0-10.0 RBC 3.88 x10^6/UL Low 3.93-6.00 HGB 11.0 g/dL Low 12.0-17.0 HCT 34 % Low 35-50 MCV 88.1 fL 80.0-95.0 MCH 28.4 pg 25.6-32.2 MCHC 32.2 g/dL 32.2-36.0 RDW-CV 12.9 % 11.6-14.4 PLT 291 x10^3/UL 163-400 MPV 10.3 fL 9.4-12.4 Jimmy# 3.81 x10^3/UL 1.56-6.13 Lymph# 2.00 x10^3/UL 1.18-3.74 [place]# 0.42 x10^3/UL 0.24-0.82 Eos # 0.3 x10^3/UL 0.0-0.5 Baso # 0.06 x10^3/UL 0.01-0.08 Jimmy% 57.7 % 34.0-70.0 Lymph % 30.3 % 20.0-52.0 [place]% 6.4 % 5.0-12.0 Eos% 4.7 % 0.7-7.0 Baso% 0.9 % 0.1-1.2 Laboratory test finding 09/27/2017 TSH 2.52 mIU/L 0.50-6.00 Free T4 1.09 ng/dL 0.75-1.54 Laboratory test finding 07/10/2017 Hemoglobin A1c (Fma) 7.4 % % High 4.1- 5.7 Comprehensive Metabolic Prof 07/10/2017 Sodium 135 mEq/L 134-149 Potassium 4.2 mEq/L 3.6-5.5 Chloride 98 mEq/L 94-112 Carbon Dioxide 25 mEq/L 21-32 Glucose 153 mg/dL High 70-105 BUN 12 mg/dL 6-26 Creatinine 0.7 mg/dL 0.6-1.4 BUN/Creat Ratio 17.1 CALC 8.0-36.0 Calcium 9.4 mg/dL 8.6-10.2 Total Protein 6.7 g/dL 6.4-8.3 Albumin 4.3 g/dL 3.8-5.5 Globulin 2.4 g/dL 2.0-4.8 A/G Ratio 1.8 CALC 0.6-2.3 Alk. Phosphatase 74 U/L 30-110 Alt (SGPT) 26 U/L 7-35 Ast (Sgot) 13 U/L 5-34 Total Bilirubin 0.7 mg/dL 0.2-1.3 GFR Non- >60 ml/min/1.73m^ >=60 GFR >60 ml/min/1.73m^ >=60 Lipid Profile 07/10/2017 Cholesterol 224 mg/dL High 120-200 Triglycerides 202 mg/dL High 30-200 HDL Cholesterol 75 mg/dL 30-85 LDL (Calculated) 109 CALC 0-129 VLDL Cholesterol 40 mg/dL 0-50 HDL Risk Factor 3.0 CALC 0.0-4.4 Urinalysis Profile 04/23/2017 Urine Color Yellow Urine Appearance Clear Urine Specific Hewitt 1.017 1.010-1.030 Urine pH 5.0 5-9 Urine Urobilinogen Negative Negative Urine Ketones Negative Negative Urine Protein Negative Negative Urine Leukocytes Trace Negative Urine Blood Negative Negative Urine Nitrite Negative Negative Urine Bilirubin Negative Negative Urine Glucose Negative Negative Urine White Blood Cell Trace(0-5/hpf) Absent Urine Red Blood Cell Trace(0-2/hpf) Absent Urine Bacteria Absent Absent Urine Squamous Epithelial Cell Present Absent Laboratory test 04/23/2017 Urine Culture And SEE RESULT BELOW 1 finding Sensitivities Laboratory test 01/09/2017 Hemoglobin A1c (Fma) 6.6 % High 4.1-5.7 finding Laboratory test 11/02/2016 Surgical Pathology SEE RESULT BELOW 2 finding Ua - Micro (Fma) 09/17/2016 Appearance clear Color yellow Glucose, Urine (Fma/CMC/CTX) neg Bilirubin neg Ketones neg SP Grav <=1.005 Blood neg PH 5.5 Protein neg Urobil 0.2 Nitrite neg Leukocytes (Fma/CMC/Centrex) small WBC (Fma,Centrex) 4-6 Laboratory test finding 09/06/2016 Potassium Redraw 4.1 mmol/L 3.5-5.0 Ast Redraw 9 U/L Low 13-39 Laboratory test finding 09/06/2016 Hemoglobin A1c (Glyco 6.9 % High Less than 6.0 3 HGB) Urine Culture And Sensitivities SEE RESULT BELOW 4 Urinalysis Profile 09/06/2016 Urine Color Yellow Urine Appearance Clear Urine Specific Hewitt 1.019 1.010-1.030 Urine pH 5.0 5-9 Urine Urobilinogen Negative Negative Urine Ketones Negative Negative Urine Protein Negative Negative Urine Leukocytes 2+ Negative Urine Blood Negative Negative Urine Nitrite Negative Negative Urine Bilirubin Negative Negative Urine Glucose Negative Negative Urine White Blood Cell 1+(6-10/hpf) Absent Urine Red Blood Cell Absent Absent Urine Bacteria Absent Absent Urine Squamous Epithelial Cell Present Absent CBC Auto Diff 09/06/2016 White Blood Count 15.8 10^3/uL High 3.5-10.8 Red Blood Count 4.83 10^6/uL 4.0-5.4 Hemoglobin 14.3 g/dL 12.0-16.0 Hematocrit 43 % 35-47 Mean Corpuscular Volume 89 fL 80-97 Mean Corpuscular Hemoglobin 30 pg 27-31 Mean Corpuscular HGB Conc 33 g/dL 31-36 Red Cell Distribution Width 14 % 10.5-15 Platelet Count 295 10^3/uL 150-450 Mean Platelet Volume 10 um3 7.4-10.4 Abs Neutrophils 12.2 10^3/uL High 1.5-7.7 Abs Lymphocytes 2.2 10^3/uL 1.0-4.8 Abs Monocytes 1.1 10^3/uL High 0-0.8 Abs Eosinophils 0.3 10^3/uL 0-0.6 Abs Basophils 0.1 10^3/uL 0-0.2 Abs Nucleated RBC 0 10^3/uL Granulocyte % 77.1 % 38-83 Lymphocyte % 13.8 % Low 25-47 Monocyte % 6.9 % 1-9 Eosinophil % 1.7 % 0-6 Basophil % 0.5 % 0-2 Nucleated Red Blood Cells % 0 Laboratory test finding 09/06/2016 Lactic Acid 1.3 mmol/L 0.5-2.0 5 Laboratory test finding 09/06/2016 Lipase 19 U/L 11.0-82.0 6 C Reactive Protein 9.47 mg/L High < 5.00 7 Comp Metabolic Panel 09/06/2016 Sodium 134 mmol/L 133-145 Chloride 102 mmol/L 101-111 Co2 Carbon Dioxide 25 mmol/L 22-32 Glucose 201 mg/dL High 70-100 8 Blood Urea Nitrogen 9 mg/dL 6-24 9 Creatinine 0.71 mg/dL 0.51-0.95 10 BUN/Creatinine Ratio 12.7 8-20 Calcium 9.3 mg/dL 8.6-10.3 11 Total Protein 7.5 g/dL 6.4-8.9 12 Albumin 4.2 g/dL 3.2-5.2 13 Globulin 3.3 g/dL 2-4 Albumin/Globulin Ratio 1.3 1-3 Total Bilirubin 1.10 mg/dL High 0.2-1.0 14 Alkaline Phosphatase 70 U/L 34-104 15 Alt 16 U/L 7-52 16 Egfr Non- 82.9 >60 Egfr 106.6 >60 17 Potassium TNP mmol/L 3.5-5.0 18 Anion Gap 7 mmol/L 2-11 Ast TNP U/L 13-39 19 Laboratory test finding 04/10/2016 Stool Culture SEE RESULT BELOW 20 O&P Ova & Parasites Full SEE RESULT BELOW 21 Parasitic Examination See Comment 22 Basic Metabolic Profile 01/05/2016 Sodium 138 mEq/L 134-149 Potassium 4.3 mEq/L 3.6-5.5 Chloride 100 mEq/L 94-112 Carbon Dioxide 24 mEq/L 21-32 Glucose 201 mg/dL High 70-105 23 BUN 12 mg/dL 6-26 Creatinine 0.6 mg/dL 0.6-1.4 BUN/Creat Ratio 20.0 CALC 8.0-36.0 Calcium 9.4 mg/dL 8.6-10.2 GFR Non- >60 ml/min/1.73m^ >=60 GFR >60 ml/min/1.73m^ >=60 Laboratory test finding 11/21/2015 Hemoglobin A1c (Fma) 6.5 % High 4.1- 5.7 Laboratory test finding 08/15/2015 Hemoglobin A1c (Fma) 6.6 % High 4.1- 5.7 Comprehensive Metabolic Prof 02/10/2015 Sodium 140 mEq/L 134-149 Potassium 4.6 mEq/L 3.6-5.5 Chloride 97 mEq/L 94-112 Carbon Dioxide 27 mEq/L 21-32 Glucose 177 mg/dL High 70-105 24 BUN 14 mg/dL 6-26 Creatinine 0.7 mg/dL 0.6-1.4 BUN/Creat Ratio 20.0 CALC 8.0-36.0 Calcium 9.7 mg/dL 8.6-10.2 Total Protein 7.6 g/dL 6.4-8.3 Albumin 4.7 g/dL 3.8-5.5 Globulin 2.9 g/dL 2.0-4.8 A/G Ratio 1.6 CALC 0.6-2.3 Alk. Phosphatase 64 U/L 30-110 Alt (SGPT) 19 U/L 7-35 Ast (Sgot) 15 U/L 5-34 Total Bilirubin 1.0 mg/dL 0.2-1.3 GFR Non- >60 ml/min/1.73m^ >=60 GFR >60 ml/min/1.73m^ >=60 Lipid Profile 02/10/2015 Cholesterol 209 mg/dL High 120-200 Triglycerides 151 mg/dL 30-200 HDL Cholesterol 66 mg/dL 30-85 LDL (Calculated) 113 CALC 0-129 VLDL Cholesterol 30 mg/dL 0-50 HDL Risk Factor 3.2 CALC 0.0-4.4 Complete Blood Count 02/10/2015 WBC 9.4 x10^3/UL 3.6-9.6 RBC 4.60 x10^6/UL 3.90-5.70 HGB 13.3 g/dL 12.1-17.2 HCT 41 % 36-50 MCV 89.0 fL 82.2-97.4 MCH 29.0 pg 27.6-33.3 MCHC 32.6 g/dL Low 33.0-35.5 RDW 12.9 % 11.6-13.7 PLT 270 x10^3/UL 150-400 MPV 7.2 fL Low 7.4-10.4 Gran # 6.8 x10^3/UL 1.5-7.2 Lymph# 2.3 x10^3/UL 0.7-4.9 [place]# 0.3 x10^3/UL 0.1-0.9 Gran % 71.2 % 42.2-75.2 Lymph % 25.2 % 20.5-51.1 [place]% 3.6 % 1.7-9.3 Laboratory test finding 02/10/2015 Vitamin D25 37 30-100 TSH 1.66 mIU/L 0.50-6.00 Free T4 1.26 ng/dL 0.75-1.54 Laboratory test 02/10/2015 Hemoglobin A1c 6.9 % High 4.1-5.7 finding (Fma/CMC,CX) Laboratory test 11/16/2014 Clotest SEE RESULT BELOW 25 finding Ict Hemoccult (Fma) 11/16/2014 Ict Hemoccult (1) 11/05/14 NEG Ict Hemoccult-(2) 11/06/14 NEG Ict-Hemoccult (3) 11/07/14 NEG Laboratory test 11/16/2014 Surgical Pathology SEE RESULT BELOW 26 finding Laboratory test 11/15/2014 Stool Occult Blood SEE RESULT BELOW 27 finding Laboratory test 11/04/2014 Hemoglobin A1c 8.1 % High 4.1-5.7 finding (Fma/CMC,CX) Laboratory test 05/10/2014 Hemoglobin A1c 7.7 % High 4.1-5.7 finding (a/CMC,CX) Laboratory test 02/08/2014 Hemoglobin A1c 7.8 % High 4.1-5.7 finding (a/CMC,CX) Microalb/Creatinine, 11/19/2013 Microalb, Random 17.8 mg/L mg/L 0.5-37 Random Ur (Fma/CMC/CTX) Urine Creatinine (F/C/CTX) 10.6 mmol/L nmol/L Microalb.,Creatinine (F/C/CTX) 1.7mg/mmol Comprehensive Metabolic Prof 11/19/2013 Sodium 135 mEq/L 134-149 Potassium 4.6 mEq/L 3.6-5.5 Chloride 98 mEq/L 94-112 Carbon Dioxide 29 mEq/L 21-32 Glucose 258 mg/dL High 70-105 28 BUN 11 mg/dL 6-26 Creatinine 0.7 mg/dL 0.6-1.4 BUN/Creat Ratio 15.7 CALC 8.0-36.0 Calcium 9.4 mg/dL 8.6-10.2 Total Protein 7.6 g/dL 6.3-8.1 Albumin 4.1 g/dL 3.8-5.5 Globulin 3.5 g/dL 2.0-4.8 A/G Ratio 1.2 CALC 0.6-2.3 Alk. Phosphatase 82 U/L 30-110 Alt (SGPT) 17 U/L 7-35 Ast (Sgot) 13 U/L 5-34 Total Bilirubin 0.9 mg/dL 0.2-1.3 Laboratory test finding 11/19/2013 TSH 2.51 mIU/L 0.50-6.00 Lipid Profile 11/19/2013 Cholesterol 265 mg/dL High 120-200 Triglycerides 182 mg/dL 30-200 HDL Cholesterol 51 mg/dL 30-85 LDL (Calculated) 178 CALC High 0-129 VLDL Cholesterol 36 mg/dL 0-50 HDL Risk Factor 5.2 CALC High 0.0-4.4 Laboratory test 11/19/2013 Hemoglobin A1c 9.5 % High 4.1-5.7 finding (Fma/CMC,CX) Surgical Pathology 10/27/2013 S RUN DATE: 10/28/ <SEE NOTE> Surgical Pathology 07/15/2012 S RUN DATE: <SEE NOTE> Laboratory test 06/16/2012 Hemoglobin A1c 8.9 % High 4.1-5.7 finding (Fma/CMC,CX) Laboratory test 05/08/2012 Hemoglobin A1c 10.1 % High 4.1-5.7 finding (Fma/CMC,CX) Laboratory test 10/15/2011 Surgical Pathology 31 finding -- <SEE NOTE> Laboratory test 10/02/2011 Inr (Fma) 2.5 2.0-3.0 finding Laboratory test 09/13/2011 Inr (Fma) 3.1 High 2.0-3.0 finding Laboratory test 08/30/2011 Inr (Fma) 2.6 2-3 finding Laboratory test 08/22/2011 Inr (Fma) 3.8 High 2.0-3.0 finding Laboratory test 08/14/2011 Inr (Fma) 2.6 High 0.9-1.1 finding Laboratory test 08/09/2011 Inr (Fma) 1.4 Low 2-3 finding Laboratory test 08/01/2011 Inr (Fma) 2.0 2-3 finding Laboratory test 07/28/2011 Inr (Fma) 2.9 2.0-3.0 finding Laboratory test 07/25/2011 Inr (Fma) 2.5 2.0-3.0 finding Laboratory test 07/23/2011 Inr (Fma) 1.6 Low 2.0-3.0 finding Laboratory test 07/21/2011 Inr (Fma) 1.3 Low 2.0-3.0 finding CBC Electronic (Fma) 07/19/2011 WBC 7.5 3.6-9.6 RBC 4.06 3.90-5.70 Hemoglobin (Fma/CMC/CTX) 11.5 g/dL Low 12.1 - 17.2 Hematocrit (Fma/CMC/CTX) 35.3 % Low 36.1 - 50.3 Platelets 368 10^3/ul 150-400 Lymph% 32.6 20.5-51.1 Mixed% 3.4 Neutrophils % 64.0 Mean Corpuscular Vol 87 82.2-97.4 Mean Corpuscular Hemoglobin 28.4 27.6-33.3 Mean Corpuscular Hemo Concen 32.7 32.0-36.0 RDW 12.1 11.6-13.7 Mean Platelet Volume 7.5 6.5-11.0 Laboratory test finding 07/19/2011 Inr (Fma) 1.1 Low 2.0-3.0 Comprehensive Metabolic Prof 07/19/2011 Albumin 4.5 g/dL 3.8-5.5 Alk. Phos. 93 U/L 30-110 Alt (SGPT) 16 U/L 7-35 Ast (Sgot) 11 U/L 5-34 BUN 10 mg/dL 6-26 Calcium 9.9 mg/dL 8.6-10.2 Chloride 94 mEq/L 94-112 Creatinine 0.8 mg/dL 0.6-1.4 Carbon Dioxide 26 mEq/L 21-32 Glucose 218 mg/dL High 70-105 32 Sodium 134 mEq/L 134-149 Total Bilirubin 0.7 mg/dL 0.2-1.3 Total Protein 6.9 g/dL 6.3-8.1 Potassium 4.2 mEq/L 3.6-5.5 Globulin 2.5 g/dL 2.0-4.8 A/G Ratio 1.8 Calc 0.6-2.2 BUN/Creat Ratio 12.8 Calc 8.0-36.0 CBC Auto Diff 07/18/2011 White Blood Count 9.3 CUMM 4.8-10.8 Red Cell Count 3.92 CUMM Low 4.2-5.4 Hemoglobin 11.6 g/dL Low 12.0-16.0 Hematocrit 34 % Low 35-47 Mean Corpuscular Volume 86 um3 79-97 Mean Corpuscular Hemoglob 30 pg 27-31 Mean Corpuscular HGB Cone 34 g/dL 32-36 Redcell Distribution WDTH 13 % 10.5-15 Platelet Count 305 CUMM 150-450 Mean Platelet Volume 8.3 um3 7.4-10.4 Gran % 52.9 % 38-83 Lymph % 36.7 % 25-47 Mononuclear % 7.6 % 1-9 Eosinophil % 1.9 % 0-6 Basophil % 0.9 % 0-2 Abs Lymphs 3.4 1.0-4.8 Abs Mononuclear 0.7 0-0.8 Absolute Neutrophil Count 4.9 1.5-7.7 Abs Eosinophils 0.2 0-0.6 Abs Basophils 0.1 0-0.2 Comp Metabolic Panel 07/18/2011 Sodium 134 mmol/L Low 135-145 Potassium 4.0 mmol/L 3.5-5.0 Chloride 100 mmol/L Low 101-111 Co2 (Carbon Dioxide) 22.0 mmol/L 22-32 Anion Gap 12.0 mmol/L High 2-11 33 Glucose 222 mg/dL High 70-100 BUN 12 mg/dL 6-24 Creatinine 0.8 mg/dL 0.50-1.40 One Over Creatinine 1.25 BUN/Creatinine Ratio 15.0 8-20 Calcium 9.8 mg/dL 8.1-9.9 Total Protein 6.5 GM/DL 6.2-8.1 Albumin 3.9 GM/DL 3.6-5.4 Globulin 2.6 GM/DL 2-4 Albumin/Globulin Ratio 1.5 1-3 Bilirubin Total 0.7 mg/dL 0.4-1.5 34 Alkaline Phosphatase 85 U/L 30-110 Alt (SGPT) 18 U/L 14-54 Ast (Sgot) 19 U/L 12-42 eGFR Non- 73.4 > 60 eGFR 94.4 > 60 35 Laboratory test finding 07/18/2011 Magnesium 1.9 mg/dL 1.7-2.6 CBC Auto Diff 06/13/2011 White Blood Count 8.9 CUMM 4.8-10.8 36 Red Cell Count 4.61 CUMM 4.2-5.4 36 Hemoglobin 13.9 g/dL 12.0-16.0 36 Hematocrit 40 % 35-47 36 Mean Corpuscular Volume 87 um3 79-97 36 Mean Corpuscular Hemoglob 30 pg 27-31 36 Mean Corpuscular HGB Cone 35 g/dL 32-36 36 Redcell Distribution WDTH 13 % 10.5-15 36 Platelet Count 246 CUMM 150-450 36 Mean Platelet Volume 8.8 um3 7.4-10.4 36 Gran % 71.0 % 38-83 36 Lymph % 20.8 % Low 25-47 36 Mononuclear % 5.7 % 1-9 36 Eosinophil % 2.2 % 0-6 36 Basophil % 0.3 % 0-2 36 Abs Lymphs 1.8 1.0-4.8 36 Abs Mononuclear 0.5 0-0.8 36 Absolute Neutrophil Count 6.3 1.5-7.7 36 Abs Eosinophils 0.2 0-0.6 36 Abs Basophils 0 0-0.2 36 Type And Screen 06/13/2011 Patient Blood Type A POSITIVE 36 Antibody Screen NEGATIVE 36 Specimen Discard Date 06/27/11 36, 37 Basic Metabolic Panel 06/13/2011 Sodium 137 mmol/L 135-145 36 Potassium 4.2 mmol/L 3.5-5.0 36 Chloride 103 mmol/L 101-111 36 Co2 (Carbon Dioxide) 25.0 mmol/L 22-32 36 Anion Gap 9.0 mmol/L 2-11 36, 38 Glucose 235 mg/dL High 70-100 36 BUN 8 mg/dL 6-24 36 Creatinine 0.7 mg/dL 0.50-1.40 36 One Over Creatinine 1.42 36 BUN/Creatinine Ratio 11.4 8-20 36 Calcium 8.8 mg/dL 8.1-9.9 36 eGFR Non- 85.6 > 60 36 eGFR 110.1 > 60 36, 39 Urinalysis W/Microscopic 06/13/2011 Ua Color YELLOW Yellow 36 Appearance-Urine CLEAR Clear 36 Specific [place]-Ur 1.021 1.010-1.030 36 Esterase-Urine 1+ Negative 36 Nitrite NEGATIVE Negative 36 Tnjtobukmyfn-Ys-HCO NEGATIVE Negative 36 Protein-Urine NEGATIVE Negative 36 PH-Urine 5.0 5-9 36 Blood-Urine NEGATIVE Negative 36 Ketones-Urine NEGATIVE Negative 36 Bilirubin-Ur NEGATIVE Negative 36 Glucose-Urine NEGATIVE Negative 36 WBC-Urine 3-5 0-5 36 RBC-Urine 0-2 0-2 36 Epith Cells-Ur OCCASIONAL None 36 Bacteria-Urine TRACE None 36 Urine Culture & 06/13/2011 M <SEE 36, 40 Sensitivi NOTE> CBC No Diff 06/11/2011 White Blood 10.4 CUMM 4.8-10.8 Count Red Cell Count 4.40 CUMM 4.2-5.4 Hemoglobin 13.5 g/dL 12.0-16.0 Hematocrit 38 % 35-47 Mean Corpuscular Volume 87 um3 79-97 Mean Corpuscular Hemoglob 31 pg 27-31 Mean Corpuscular HGB Cone 35 g/dL 32-36 Redcell Distribution WDTH 13 % 10.5-15 Platelet Count 282 CUMM 150-450 Mean Platelet Volume 9.5 um3 7.4-10.4 Protime 06/11/2011 Inr 0.89 0.88-1.13 41 Protime 10.5 SEC 10.3-13.5 42 Basic Metabolic Panel 06/11/2011 Sodium 135 mmol/L 135-145 Potassium 4.2 mmol/L 3.5-5.0 Chloride 99 mmol/L Low 101-111 Co2 (Carbon Dioxide) 29.0 mmol/L 22-32 Anion Gap 7.0 mmol/L 2-11 43 Glucose 189 mg/dL High 70-100 BUN 14 mg/dL 6-24 Creatinine 0.7 mg/dL 0.50-1.40 One Over Creatinine 1.42 BUN/Creatinine Ratio 20.0 8-20 Calcium 9.1 mg/dL 8.1-9.9 eGFR Non- 85.6 > 60 eGFR 110.1 > 60 44 Laboratory test finding 05/31/2011 Hemoglobin A1c 8.8 % High 4.1-5.7 (Fma/CMC,CX) Comprehensive Metabolic 05/24/2011 Albumin 4.1 g/dL 3.8-5.5 Prof Alk. Phos. 92 U/L 30-110 Alt (SGPT) 35 U/L 7-35 Ast (Sgot) 14 U/L 5-34 BUN 10 mg/dL 6-26 Calcium 9.2 mg/dL 8.6-10.2 Chloride 97 mEq/L 94-112 Creatinine 0.7 mg/dL 0.6-1.4 Carbon Dioxide 29 mEq/L 21-32 Glucose 218 mg/dL High 70-105 45 Sodium 138 mEq/L 134-149 Total Bilirubin 0.6 mg/dL 0.2-1.3 Total Protein 6.4 g/dL 6.3-8.1 Potassium 4.4 mEq/L 3.6-5.5 Globulin 2.3 g/dL 2.0-4.8 A/G Ratio 1.8 Calc 0.6-2.2 BUN/Creat Ratio 15.8 Calc 8.0-36.0 Lipid Profile 05/24/2011 Cholesterol 180 mg/dL 120-200 HDL 44 mg/dL 30-85 Triglycerides 126 mg/dL 30-200 HDL Risk Factor 4.1 CALC High 0.0-4.0 LDL (Calculated) 111 CALC 0-129 VLDL (Calculated) 25 mg/dL 0-50 CBC Electronic (a) 05/24/2011 WBC 8.5 3.6-9.6 RBC 4.33 3.90-5.70 Hemoglobin (Fma/CMC/CTX) 12.4 g/dL 12.1 - 17.2 Hematocrit (Fma/CMC/CTX) 37.8 % 36.1 - 50.3 Platelets 319 10^3/ul 150-400 Lymph% 31.2 20.5-51.1 Mixed% 4.1 Neutrophils % 64.7 Mean Corpuscular Vol 87 82.2-97.4 Mean Corpuscular Hemoglobin 28.7 27.6-33.3 Mean Corpuscular Hemo Concen 32.9 32.0-36.0 RDW 11.5 Low 11.6-13.7 Mean Platelet Volume 8.3 6.5-11.0 Comprehensive Metabolic Prof 11/30/2010 Albumin 4.3 g/dL 3.8-5.5 Alk. Phos. 96 U/L 30-110 Alt (SGPT) 22 U/L 7-35 Ast (Sgot) 12 U/L 5-34 BUN 10 mg/dL 6-26 Calcium 9.3 mg/dL 8.6-10.2 Chloride 99 mEq/L 94-112 Creatinine 0.7 mg/dL 0.6-1.4 Carbon Dioxide 26 mEq/L 21-32 Glucose 222 mg/dL High 70-105 46 Sodium 140 mEq/L 134-149 Total Bilirubin 0.7 mg/dL 0.2-1.3 Total Protein 6.9 g/dL 6.3-8.1 Potassium 4.2 mEq/L 3.6-5.5 Globulin 2.6 g/dL 2.0-4.8 A/G Ratio 1.7 Calc 0.6-2.2 BUN/Creat Ratio 13.4 Calc 8.0-36.0 Lipid Profile 11/30/2010 Cholesterol 265 mg/dL High 120-200 47 HDL 52 mg/dL 30-85 Triglycerides 187 mg/dL 30-200 HDL Risk Factor 5.1 CALC High 0.0-4.0 LDL (Calculated) 176 CALC High 0-129 VLDL (Calculated) 37 mg/dL 0-50 CBC Electronic (a) 11/30/2010 WBC 8.0 3.6-9.6 RBC 5.02 3.90-5.70 Hemoglobin (Fma/CMC/CTX) 14.9 g/dL 12.1 - 17.2 Hematocrit (Fma/CMC/CTX) 44.0 % 36.1 - 50.3 Platelets 314 10^3/ul 150-400 Lymph% 27.3 20.5-51.1 Mixed% 6.6 Neutrophils % 66.1 Mean Corpuscular Vol 88 82.2-97.4 Mean Corpuscular Hemoglobin 29.6 27.6-33.3 Mean Corpuscular Hemo Concen 33.9 32.0-36.0 RDW 12.0 11.6-13.7 Mean Platelet Volume 7.8 6.5-11.0 1 SEE RESULT BELOW Name: JOSE CABRERA : [address]: Tana Kendall MD Acct: [id number] Unit: [id number] AGE: 67 Location: ED Re04/23/17 SEX: F Status: DEP ER SPEC: [id number] SOLIS: 04/23/17-[address]: Sarah KAISER REQ: [id number] RECD: 04/23/17 STATUS: PHONG DA SILVA DR: Tana Eller MD _ SOURCE: URINE SPDES: ORDERED: Urine Culture Procedure Result Reported Site Urine Culture Final 04/24/17- 1209 ML No growth of clinically significant organisms * ML - MAIN LAB ([facility]) . END OF REPORT * ML=Testing performed at Main Lab DEPARTMENT OF PATHOLOGY, [address] [place] [address] William Zayas M.D. Director [facility] # [id number] 2 SEE RESULT BELOW Name: JOSE CABRERA : [address]: Gerardo Lee MD Acct: [id number] Unit: [id number] AGE: 66 Location: ENDO Re11/02/16 SEX: F Status: DEP REF SPEC: [id number] SOLIS: 11/02/16-[address] [facility] [address]: Gerardo Lee MD REQ: [id number] RECD: 11/02/16 STATUS: KENIA DA SILVA DR: Dansiha Eller MD _ ORDERED: LEVEL 4/3 FINAL DIAGNOSIS 1. Colon, distal sigmoid, biopsy: -- Hyperplastic polyp. 2. Colon, ileocecal valve, biopsy: -- Tubular adenoma. -- No high grade dysplasia or malignancy. 3. Colon, descending, biopsy: -- Tubular adenoma. -- No high grade dysplasia or malignancy. CLINICAL HISTORY Follow up after polyp, diarrhea three to four times no blood noted. POST-OPERATIVE DIAGNOSIS Colonoscopy to cecum with ease. Conclusions/Plan: Three polyps follow up after pathology, five year follow up. GROSS DESCRIPTION 1. The specimen is received in formalin labeled, Distal Sigmoid Polyp, and consists of a 0.6 x 0.4 by up to 0.3 cm thick of vásquez-pink irregular to polypoid soft tissue fragment, which is entirely submitted in one cassette. 2. The specimen is received in formalin labeled, Biopsy Ileocecal Polyp, and consists of a 0.6 x 0.4 by up to 0.3 cm vásquez-pink irregular to polypoid soft tissue fragment , which is entirely submitted in one cassette. 3. The specimen is received in formalin labeled, Biopsy Descending Colon Polyp, and consists of a 0.5 x 0.4 x 0.3 centimeters vásquez-pink irregular to polypoid soft tissue CONTINUED ON NEXT PAGE * ML=Testing performed at Main Lab DEPARTMENT OF PATHOLOGY, [address] [place] [address] William Zayas M.D. Director [facility] # [id number] RUN DATE: 11/06/16 [facility] LAB LIVE PAGE 2 Patient: TAMARAJOSE [id number] (Continued) GROSS DESCRIPTION (Continued) GROSS DESCRIPTION (Continued) fragment, which is entirely submitted in one cassette. Signed (signature on file) Sarah Sotelo MD 07/18 1246 END OF REPORT * ML=Testing performed at Main Lab DEPARTMENT OF PATHOLOGY, [address] [place] [address] William Zayas M.D. Director [facility] # [id number] 3 Therapeutic target for the treatment of diabetes Mellitus patients is <7% HBA1C, and in selective patients <6.0%.Please refer to [place] [employer] Diabetic care guidelines for further information. 4 SEE RESULT BELOW Name: JOSE CABRERA : [address]: Aneesh Hernandez MD Acct: [id number] Unit: [id number] AGE: 66 Location: [address] Re09/06/16 SEX: F Status: ADM Arun SPEC: [id number] SOLIS: 09/06/16-[address]: Sahil Davis MD REQ: [id number] RECD: 09/06/16 STATUS: PHONG DA SILVA DR: Danisha Eller MD _ SOURCE: URINE SPDESC: ORDERED: Urine Culture Procedure Result Reported Site Urine Culture Final 09/07/16- 1230 ML No growth of clinically significant organisms * ML - MAIN LAB ([facility]) . END OF REPORT * ML=Testing performed at Main Lab DEPARTMENT OF PATHOLOGY, [address] [place] [address] William Zayas M.D. Director [facility] # [id number] 5 [facility] Severe Sepsis and Septic Shock Management Bundle Measure requires all lactic acids initially measuring >2.0 mmol/L be repeated. 6 Specimen hemolyzed. Result may not be valid. 7 Specimen hemolyzed. Result may not be valid. Acute inflammation: >10.00 8 Specimen hemolyzed. Result may not be valid. 9 Specimen hemolyzed. Result may not be valid. 10 Specimen hemolyzed. Result may not be valid. 11 Specimen hemolyzed. Result may not be valid. 12 Specimen hemolyzed. Result may not be valid. 13 Specimen hemolyzed. Result may not be valid. 14 Specimen hemolyzed. Result may not be valid. 15 Specimen hemolyzed. Result may not be valid. 16 Specimen hemolyzed. Result may not be valid. 17 Because ethnic data is not always readily available, this report includes an eGFR for both -Americans and non- Americans. The National Kidney Disease Education Program (NKDEP) does not endorse the use of the MDRD equation for patients that are not between the ages of 18 and 70, are , have extremes of body size, muscle mass, or nutritional status, or are non- or non-. According to the National Kidney Foundation, irrespective of diagnosis, the stage of the disease is based on the level of kidney function: Stage Description GFR(mL/min/1.73 m(2)) 1 Kidney damage with normal or decreased GFR 90 2 Kidney damage with mild decrease in GFR 60-89 3 Moderate decrease in GFR 30-59 4 Severe decrease in GFR 15-29 5 Kidney failure <15 (or dialysis) 18 Unable to report test result due to hemolysis. 19 Unable to report test result due to hemolysis. 20 SEE RESULT BELOW Name: JOSE CABRERA : [address]: Danisha Eller MD Acct: [id number] Unit: [id number] AGE: 65 Location: [facility] Re04/17/16 SEX: F Status: REG REF SPEC: [id number] SOLIS: 04/17/16-[address]: Danisha Eller MD REQ: [id number] RECD: 04/17/168567 STATUS: COMP _ SOURCE: STOOL SPDESC: ORDERED: Stool Culture, Fecal Lactoferr, O P (Full) COMMENTS: DO O P FULL REGARDLESS Unable to perform Shiga Toxin testing. Specimen collection requirements were not met. Stool for Shiga Toxin testing must be received by the laboratory within 2 hours of collection or placed in Brady-Estiven transport medium. *please interpret stool culture result with caution* Stool specimen was not placed into appropriate transport medium within recommended time-frame. Testing may be less Sensitive. Procedure Result Reported Site Stool Culture Final 04/19/16- 1347 ML Result No enteric pathogens isolated Testing for Salmonella, Shigella, Aeromonas, Plesiomonas, Yersinia and Campylobacter are included in a Stool Culture. Vibrio spp not routinely tested for in a stool culture. If testing is desired, please request specifically when placing test order. Sensitivities not routinely performed on stool isolates, as antibiotics may prolong the carriage rate of bacteria. Please contact the microbiology lab if sensitivities are required. Stool Specimen Description Final 04/17/16- 1745 ML Stool Color Brown Stool Form Semi-formed CONTINUED ON NEXT PAGE * ML=Testing performed at [facility] Lab DEPARTMENT OF PATHOLOGY, [address] [place] [address] William Zayas M.D. Director [facility] # [id number] Patient: JOSE CABRERA Darrick [id number] (Continued) Specimen: [id number] Collected: 04/17/16-1399 Received: 04/17/16-1539 (Continued) Procedure Result Reported Site Stool Specimen Description Final (continued) 04/17/16- 174 Stool Consistency Soft Shiga Toxin 1 2 Final 04/18/16- 1417 ML Test not performed Fecal Lactoferrin (Stool WBC) Final 04/17/16- 1828 ML Fecal Lactoferrin Negative by Immunoassay TEST LIMITATIONS: Assay detects elevated levels of lactoferrin released from fecal leukocytes as a marker of intestinal inflammation. The test may not be appropriate in immunocompromised persons. Fecal samples from breast fed infants should not be used with this assay. O P: Giardia/Cryptospor Screen Final 04/18/16- 1022 ML Organism 1 Neg Cryptosporidium/Giardia Giardia and cryptosporidium antigen testing performed by enzyme immunoassay. The use of colonic washes, aspirates or other diluted sample types has not been established and could affect the performance of the assay. Stool samples contaminated with an oily or particulate base (eg. Barium, mineral oil etc.) could interfere with the test and are not recommended. Ova Parasite Concen Full Final 04/18/16- 0919 ML Test not performed * ML - MAIN LAB ([facility]) . END OF REPORT * ML=Testing performed at Main Lab DEPARTMENT OF PATHOLOGY, [address] [place] [address] William Zayas M.D. Director [facility] # [id number] 21 SEE RESULT BELOW Name: JOSE CABRERA : [address]: Danisha Eller MD Acct: [id number] Unit: [id number] AGE: 65 Location: [facility] Re04/10/16 SEX: F Status: REG REF SPEC: [id number] SOLIS: 04/10/1613[address] [facility] DR: Danisha Eller MD REQ: [id number] RECD: 04/10/16 STATUS: RES _ SOURCE: STOOL SPDESC: ORDERED: Stool Culture, O P (Full) Procedure Result Reported Site Stool Culture PENDING Shiga Toxin 1 2 PENDING O P: Giardia/Cryptospor Screen Final 04/11/16- 1208 ML Organism 1 Neg Cryptosporidium/Giardia Giardia and cryptosporidium antigen testing performed by enzyme immunoassay. The use of colonic washes, aspirates or other diluted sample types has not been established and could affect the performance of the assay. Stool samples contaminated with an oily or particulate base (eg. Barium, mineral oil etc.) could interfere with the test and are not recommended. Ova Parasite Concen Full Final 04/11/16- 1059 ML Test not performed * ML - [facility] ([facility]) . END OF REPORT * ML=Testing performed at Main Lab DEPARTMENT OF PATHOLOGY, [address] [place] [address] William Zayas M.D. Director [facility] # [id number] 22 SOURCE: STOOL PARASITIC EXAMINATION FINAL No parasites seen. Cryptosporidium, Cyclospora, and microsporidia are not readily detected by this method. Single negative specimen does not rule out parasitic infection. Test Performed by: [address] [address] Journal Entry Audit Clerk: Ger Braxton II, M.D., Ph.D. 23 consistent w/ previous results 24 consistent w/ previous results 25 SEE RESULT BELOW Name: JOSE CABRERA : [address]: Gerardo Lee MD Acct: [id number] Unit: [id number] AGE: 64 Location: ENDO Re11/16/14 SEX: F Status: REG REF SPEC: [id number] SOLIS: 11/16/14-[address]: Gerardo Lee MD REQ: [id number] RECD: 11/16/14 STATUS: COMP [facility] DR: Danisha Eller MD _ SOURCE: [facility]ANCIS[facility] BRUNER [facility]: ORDERED: Clotest Procedure Result Verified Site Clotest Final 11/17/14- 0752 ML Clotest Negative * ML - [facility] LAB ([facility]) . END OF REPORT * ML=Testing performed at Main Lab DEPARTMENT OF PATHOLOGY, [address] [place] [address] William Zayas M.D. Director [facility] # [id number] 26 SEE RESULT BELOW Name: JOSE CABRERA : [address]: Gerardo Lee MD Acct: [id number] Unit: [id number] AGE: 64 Location: ENDO Re11/16/14 SEX: F Status: REG REF SPEC: [id number] SOLIS: 11/16/14-[address]: Gerardo Lee MD REQ: [id number] RECD: 11/16/14-1439 STATUS: KENIA DA SILVA DR: Danisha Eller MD _ ORDERED: LEVEL IV/2 FINAL DIAGNOSIS 1. Stomach, antrum, biopsy: -- Body-type gastric mucosa with minimal superficial chronic inflammation. 2. Gastroesophageal junction, biopsy: -- Columnar-type mucosa with chronic inflammation and reactive epithelial change. -- Negative for intestinal metaplasia and dysplasia. CLINICAL HISTORY Black stool POST-OPERATIVE DIAGNOSIS Larynx - symmetric; esophagus - normal; EG at 40 irregular, biopsied x2; stomach - antral erosions - black spot at 2 o'clock, CLOtest and biopsy; duodenum - erythema in bulb, 2nd through 4th normal. Gastroduodenitis GROSS DESCRIPTION 1. The specimen is received in formalin labeled, Gastric Antral Biopsies, and consists of two vásquez irregular soft tissue fragments averaging 0.3 x 0.2 x 0.1 cm, which are submitted entirely in one cassette. 2. The specimen is received in formalin labeled, EG Junction Biopsy, and consists of two vásquez irregular soft tissue fragments measuring 0.3 x 0.3 x 0.2 cm and 0.5 x 0.3 x 0.1 cm, which are submitted entirely in one cassette. Signed (signature on file) Sarah Sotelo MD 1248 END OF REPORT * ML=Testing performed at Main Lab DEPARTMENT OF PATHOLOGY, [address] [place] [address] William Zayas M.D. Director [facility] # [id number] 27 SEE RESULT BELOW Name: JOSE CABRERA : [address]: Gerardo Lee MD Acct: [id number] Unit: [id number] AGE: 64 Location: ENDO Re11/16/14 SEX: F Status: REG REF SPEC: [id number] SOLIS: 11/15/14-[address]: Gerardo Lee MD REQ: [id number] RECD: 11/16/14 STATUS: PHONG DA SILVA DR: Danisha Eller MD _ SOURCE: STOOL SPDESC: ORDERED: Hemoccult Procedure Result Verified Site Stool Occult Blood Final 11/16/14- 1445 ML Stool Occult Blood Negative * ML - MAIN LAB (PSC1) . END OF REPORT * ML=Testing performed at Main Lab DEPARTMENT OF PATHOLOGY, [address] [place] [id number] William Zayas M.D. Director [facility] # [id number] 28 consistent w/ previous results 29 RUN DATE: 10/28/13 [facility] LAB LIVE PAGE 1 RUN TIME: [address] [place] [id number] Specimen Inquiry Name: JOSE CABRERA : [address]: Gerardo Lee MD Acct: [id number] Unit: [id number] AGE: 63 Location: ENDO Re10/27/13 SEX: F Status: REG REF SPEC: [id number] SOLIS: 10/27/13- SUBM DR: Gerardo Lee MD REQ: [id number] RECD: 10/27/13-1156 STATUS: KENIA DA SILVA DR: Danisha Eller MD _ ORDERED: LEVEL IV FINAL DIAGNOSIS Colon, ileocecal valve, biopsy: Hyperplastic polyp. CLINICAL HISTORY Screening colonoscopy; personal history of polyps. Usual bowel habits - every day, 5-6 days per week. POST-OPERATIVE DIAGNOSIS Screening colonoscopy to cecum with ease; 1 colon polyp, sessile. Follow up - 3 years. GROSS DESCRIPTION The specimen is received in formalin labeled Jose DarrickDanna Jackmanpooja, Ileal Cecal Polyp and consists of two vásquez-pink irregular to polypoid soft tissue fragments measuring 0.4 x 0.2 x 0.2 cm. and 0.9 x 0.5 x 0.5 cm. The larger tissue is inked, bisected, and the specimen is submitted entirely in one cassette. Signed (signature on file) Sarah Sotelo MD 1312 END OF REPORT * ML=Testing performed at Main Lab DEPARTMENT OF PATHOLOGY, [address] [place] [id number] William Zayas M.D. Director LACHO # [id number] RUN DATE: 07/16/12 [facility] LAB LIVE PAGE 1 RUN TIME: [address] [place] [address] Specimen Inquiry Name: JOSE CABRERA Darrick : [address]: Gerardo Lee MD Acct: [id number] Unit: [id number] AGE: 62 Location: ENDO Re07/15/12 SEX: F Status: REG REF SPEC: [id number] SOLIS: 07/15/12- [facility] DR: Gerardo Lee MD REQ: [id number] RECD: 07/15/12 STATUS: KENIA DA SILVA DR: Danisha Eller MD _ ORDERED: LEVEL IV/4 FINAL DIAGNOSIS 1. Colon, ileocecal polyp, biopsy: A. Tubular adenoma. B. No high grade dysplasia or malignancy. 2. Colon, hepatic flexure, biopsy: Inflamed hyperplastic polyp with focal ulceration. 3. Rectosigmoid polyp at 17 cm., biopsy: Inflamed hyperplastic polyp with focal ulceration. 4. Colon, rectosigmoid biopsy: A. Tubular adenoma. B. No high grade dysplasia or malignancy. CLINICAL HISTORY Usual bowel habit - every day with no blood. Past surgical history - gallbladder, 2002. Colorectal cancer - paternal aunt, uncle, paternal grandfather. Personal history of polyps POST-OPERATIVE DIAGNOSIS Four colon polyps GROSS DESCRIPTION 1) The specimen is received in formalin labeled Jose Cabrera, Ileocecal Polyp Biopsy and consists of multiple, vásquez, soft tissue fragments measuring 0.7 x 0.3 x 0.1 cm. Submitted entirely, one cassette. 2) The specimen is received in formalin labeled Jose Cabrera, Hepatic Flexure Biopsy and consists of a vásquez, soft tissue fragment measuring 0.4 x 0.3 x 0.3 cm. Submitted entirely, CONTINUED ON NEXT PAGE * ML=Testing performed at Main Lab DEPARTMENT OF PATHOLOGY, [facility] [employer] [address] [place], [place] [address] William Zayas M.D. Director [facility] Permit #[id number] RUN DATE: 07/16/12 [facility] LAB LIVE PAGE 2 RUN TIME: 1502 [facility] [employer] [place], [place] [address] Specimen Inquiry Patient: JOSE CABRERA [id number] (Continued) GROSS DESCRIPTION (Continued) GROSS DESCRIPTION (Continued) one cassette. 3) The specimen is received in formalin labeled Jose Cabrera, Rectosigmoid Polyp at 17 cm. and consists of multiple, vásquez-pink, polypoid fragment measuring 0.7 x 0.7 x 0.4 cm. Submitted entirely, one cassette. 4) The specimen is received in formalin labeled Jose Cabrera, Rectosigmoid Polyp at 11 cm. and consists of a polypoid mass measuring 0.6 x 0.5 x 0.3 cm. Submitted entirely, one cassette. 1) Signed (signature on file) William Zayas MD 1502 END OF REPORT * ML=Testing performed at Main Lab DEPARTMENT OF PATHOLOGY, [address] [place] [address] William Zayas M.D. Director [facility] Permit #[id number] 31 ---- RUN DATE: 10/17/11 [facility] NMI LIVE PAGE 1 RUN TIME: 1455 Specimen Inquiry RUN USER: INTERFACE -- Name: JOSE CABRERA Status: REG REF Re10/15/11 Age/Sex: 61/F Unit#: [id number] [facility] -- Specimen: [id number] KENIA Spec Date:10/15/[address] [facility] [address]: Danisha mittal MD Spec Type: SURGICAL P Received:10/16/11-1243 Copies to: SPECIMEN 1) LEFT BACK 2) MID BACK 3) RIGHT BREAST 4) RIGHT AXILLA HISTORY CLINICAL INFORMATION: No history given GROSS DESCRIPTION 1) The specimen is received in formalin labelled [facility], and consists of a fragment of white tissue measuring 0.8 x 0.8 x 0.4 cm. Submitted entirely, one cassette labelled 1. 2) The specimen is received in formalin labelled Jose Tudi, Mid Back, and consists of a fragment of white tissue measuring 0.8 x 0.8 x 0.4 cm. Submitted entirely, one cassette labelled 2. 3) The specimen is received in formalin labelled Jose Tudi, Right Breast, and consists of a fragment of white tissue measuring 0.5 x 0.5 x 0.4 cm. Submitted entirely, one cassette labelled 3. 4) The specimen is received in formalin labelled Jose di, Right Axilla, and consists of one fragment of brown tissue measuring 0.5 x 0.5 x 0.4 cm. Submitted entirely, one cassette labelled 4. DIAGNOSIS 1) Skin, left back, excision: Acrochordon. 2) Skin, mid back, excision: Acrochordon. 3) Skin, right breast, excision: Intradermal melanocytic nevus with prominent neurotized features. 4) Skin, right axilla, excision: Intradermal melanocytic nevus with prominent neurotized features. Signed Electronically by: DANIELE MAYES 10/17/11 2748 -- DEPARTMENT OF PATHOLOGY, [address] [place] [address] [facility] Permit #[id number] William Zayas M.D. Director Daniele Mayes M.D. Dough Maker Dir tung -- 32 RESULT CARRIE'D 33 Anion gap measurement may be of limited value in the presence of any alkalosis, especially in a combined acid base disorder. . 34 A metabolite of Naproxen, O-desmethylnaproxen, has been shown to interfere with the Jendrassik-Eugenio method for measuring total bilirubin. Samples from patients who have taken Naproxen have shown spurious elevation in total bilirubin levels. 35 Because ethnic data is not always readily available, this report includes an eGFR for both -Americans and non- Americans. The National Kidney Disease Education Program (NKDEP) does not endorse the use of the MDRD equation for patients that are not between the ages of 18 and 70, are , have extremes of body size, muscle mass, or nutritional status, or are non- or non-. According to the National Kidney Foundation, irrespective of diagnosis, the stage of the disease is based on the level of kidney function: Stage Description GFR(mL/min/1.73 m(2)) 1 Kidney damage with normal or decreased GFR 90 2 Kidney damage with mild decrease in GFR 60-89 3 Moderate decrease in GFR 30-59 4 Severe decrease in GFR 15-29 5 Kidney failure <15 (or dialysis) 36 AA 06/19/11 37 PREADMISSION TESTING SAMPLES FOR BLOOD BANK WILL BE HELD FOR 14 DAYS FROM THE DATE OF COLLECTION *IF* THE FOLLOWING CRITERIA ARE MET: 1) THE PATIENT HAS *NOT* BEEN IN THE LAST 3 MONTHS. 2) THE PATIENT HAS *NOT* BEEN TRANSFUSED IN THE LAST 3 MONTHS. PREADMISSION TESTING SAMPLES WILL *NOT* BE HELD FOR 14 DAYS FROM PATIENTS WHO IN THE LAST 3 MONTHS: 1) HAVE BEEN 2) HAVE BEEN TRANSFUSED THESE PATIENTS *MUST* BE COLLECTED WITHIN 3 DAYS OF THE SURGERY DATE. 38 Anion gap measurement may be of limited value in the presence of any alkalosis, especially in a combined acid base disorder. . 39 Because ethnic data is not always readily available, this report includes an eGFR for both -Americans and non- Americans. The National Kidney Disease Education Program (NKDEP) does not endorse the use of the MDRD equation for patients that are not between the ages of 18 and 70, are , have extremes of body size, muscle mass, or nutritional status, or are non- or non-. According to the National Kidney Foundation, irrespective of diagnosis, the stage of the disease is based on the level of kidney function: Stage Description GFR(mL/min/1.73 m(2)) 1 Kidney damage with normal or decreased GFR 90 2 Kidney damage with mild decrease in GFR 60-89 3 Moderate decrease in GFR 30-59 4 Severe decrease in GFR 15-29 5 Kidney failure <15 (or dialysis) 40 RUN DATE: 06/15/11 [facility] NMI LIVE PAGE 1 RUN TIME: 902 Specimen Inquiry RUN USER: INTERFACE Name: JOSE CABRERA Status: REG REF Re06/13/11 Age/Sex: 61/F Unit#: [id number] Location: [facility] Roberts : [birth year] SPEC #: [id number] SOLIS: 06/13/11 STATUS: COMP REQ #: [id number] RECD: 06/13/[address] [facility] [address]: Zachariah Salcido MD SOURCE: URINE ENTR: 06/13/11-1011 [facility] DR: Daphnie SWANSON, [facility] ORDERED: URINE C S QUERIES: SPECIMEN DESCRIPTION: URINE, RANDOM ACT WKST: UR 06/15/11 #1 Procedure Result Verified Site > URINE CULTURE SENSITIVI Final 06/15/11- 902 ML SCANT NORMAL URETHRAL OR PERINEAL DEEPTI ML - [facility] Permit #[id number] [address] [place] [address] DEPARTMENT OF PATHOLOGY, [address] [place] [address] [facility] Permit #[id number] Prem Lee M.D. [employer] Supervisor 41 Recommended INR for Patients on Oral Anticoagulants Prophylaxis 2.0 - 3.0 Treatment of thrombosis 2.0 - 3.0 Prevention of embolism 2.0 - 3.0 Prevention of embolism from prosthetic heart valves 2.5 - 3.5 42 DIAGNOSIS,TREATMENT,AND THERAPY MUST BE BASED ON THE INR VALUE ALONE. 43 Anion gap measurement may be of limited value in the presence of any alkalosis, especially in a combined acid base disorder. . 44 Because ethnic data is not always readily available, this report includes an eGFR for both -Americans and non- Americans. The National Kidney Disease Education Program (NKDEP) does not endorse the use of the MDRD equation for patients that are not between the ages of 18 and 70, are , have extremes of body size, muscle mass, or nutritional status, or are non- or non-. According to the National Kidney Foundation, irrespective of diagnosis, the stage of the disease is based on the level of kidney function: Stage Description GFR(mL/min/1.73 m(2)) 1 Kidney damage with normal or decreased GFR 90 2 Kidney damage with mild decrease in GFR 60-89 3 Moderate decrease in GFR 30-59 4 Severe decrease in GFR 15-29 5 Kidney failure <15 (or dialysis) 45 result reckd' 46 RESULT CARRIE'D 47 RESULT CARRIE'D Procedures Date CPT Code Description Status Comment 09/27/2017 17858 Electrocardiogram Complete Completed 06/06/2017 58502 Remove Skin Tags Up To 15 Completed 01/09/2017 36875 Finger Or Heel Stick Completed 11/02/2016 Colonoscopy Completed 08/15/2016 Diabetic Retinal Eye Exam Completed Dr Richardson No Diabetes retinopathy 11/21/2015 59697 Finger Or Heel Stick Completed 08/15/2015 15389 Finger Or Heel Stick Completed 06/14/2015 76120 Pulse Oximetry Completed 11/04/2014 72982 Finger Or Heel Stick Completed 05/10/2014 12202 Finger Or Heel Stick Completed 02/08/2014 36430 Finger Or Heel Stick Completed 10/27/2013 Colonoscopy Completed 07/15/2012 Colonoscopy Completed 06/20/2012 Mammogram Completed 06/19/2012 97363 Excise Benign Lesion 1.1-2CM Completed Trunk/Arm/Leg 06/19/2012 60814 Biopsy Skin Lesion Single Completed 06/16/2012 Mammogram Completed can't take time off from work. 06/16/2012 58535 Finger Or Heel Stick Completed 05/08/2012 69328 Finger Or Heel Stick Completed 10/12/2011 60568 Shave Skin Lesion <.6CM Completed Trunk/Arm/Leg 10/12/2011 78286 Remove Skin Tags Up To 15 Completed 10/12/2011 34699 Shave Skin Lesion <.6CM Completed Trunk/Arm/Leg 10/02/2011 31543 Finger Or Heel Stick Completed 09/13/2011 10785 Finger Or Heel Stick Completed 08/30/2011 25939 Finger Or Heel Stick Completed 08/22/2011 44628 Finger Or Heel Stick Completed 08/14/2011 43249 Finger Or Heel Stick Completed 08/09/2011 79252 Finger Or Heel Stick Completed 08/01/2011 89469 Finger Or Heel Stick Completed 07/28/2011 79474 Finger Or Heel Stick Completed 07/25/2011 01304 Finger Or Heel Stick Completed 07/23/2011 79478 Finger Or Heel Stick Completed 07/21/2011 88793 Finger Or Heel Stick Completed 05/22/2011 70899 Electrocardiogram Complete Completed 11/30/2010 18052 Electrocardiogram Complete Completed Encounters Type Date Location Provider CPT E/M Dx Office Visit 09/27/2017 9:00a [place] [address] R42 E11.65 I10 Office Visit 09/18/2017 9:00a [place] [address] E11.65 I10 Office Visit 07/10/2017 1:00p Main Office Danisha Eller M.D. 61979 Z01.818 M17.12 E11.65 I10 Office Visit 06/06/2017 3:20p [facility] Office Danisha Eller M.D. 63517 K21.9 L91.8 S90.852A M25.561 Office Visit 01/25/2017 11:30a [place] [address] R04.0 Office Visit 01/09/2017 6:40p Main Office Danisha Eller M.D. 92549 E11.65 Z12.31 Office Visit 09/17/2016 6:15p Main Office CHRIS Durbin 20969 N39.0 Office Visit 04/09/2016 5:40p Main Office Danisha Eller M.D. 35035 E11.65 R19.7 F43.21 Office Visit 02/24/2016 11:30a [facility] Sarah Echeverria, [facility] 49251 R05 R19.7 Office Visit 01/30/2016 3:30p Main Office Danisha Eller M.D. 30889 M79.605 E11.65 Office Visit 11/21/2015 7:20p Main Office Danisha Eller M.D. 38528 E11.65 F43.21 M76.32 K58.0 Office Visit 08/15/2015 6:30p Main Office Danisha Eller M.D. 17301 E11.65 F43.21 Office Visit 06/14/2015 7:30p Main Office Amber RuffinJordon-Norris 57486 J18.9 Office Visit 02/10/2015 9:40a [facility] Office Danisha Eller M.D. 92457 E11.65 M79.641 M79.642 E55.9 Office Visit 12/13/2014 4:20p Main Office Danisha Eller M.D. 35075 E11.65 M15.0 I10 Office Visit 11/04/2014 9:40a [facility] Danisha Eller M.D. 59856 250.02 578.1 Office Visit 09/23/2014 8:30a Main Office Aileen RochaOdette 61537 847.1 Office Visit 05/10/2014 9:40a Main Office Danisha Eller M.D. 55714 250.02 381.89 Office Visit 02/08/2014 5:40p Main Office Danisha Eller M.D. 42023 250.00 Office Visit 12/03/2013 11:30a [facility] Office Danisha Eller M.D. 39024 250.02 278.00 305.1 780.52 Office Visit 10/19/2013 6:45p [place] [address] 250.02 305.1 782.9 Office Visit 05/04/2013 6:15p [place] [address] 461.0 466.0 Office Visit 09/19/2012 10:50a [facility] Office Danisha Eller M.D. 08312 250.02 715.00 787.91 305.1 v03.82 Office Visit 07/01/2012 11:20a Main Office Danisha Eller M.D. 70278 709.2 V58.32 Office Visit 06/19/2012 2:00p [facility] Office Danisha Eller M.D. 95106 709.2 Office Visit 06/16/2012 5:40p Main Office Danisha Eller M.D. 58814 715.00 250.02 701.4 v06.5 Office Visit 05/08/2012 9:30a [facility] Office Jose Richardson, [facility] 66263 250.02 250.00 Office Visit 12/12/2011 11:45a Main Office Jose DebraDEREJEP 50731 461.0 Office Visit 10/12/2011 2:30p [facility] Office Danisha Eller M.D. 49715 782.9 701.9 216.5 Office Visit 10/02/2011 11:30a Main Office Danisha Eller M.D. 51690 715.00 453.40 250.00 782.9 v58.61 Office Visit 08/14/2011 9:20a Main Office Danisha Eller M.D. 50414 250.00 719.46 453.40 V58.61 Office Visit 07/19/2011 9:00a [facility] Office Danisha Eller M.D. 95257 453.40 728.85 715.00 v58.61 Office Visit 07/16/2011 5:40p Main Office Danisha Eller M.D. 50432 719.46 250.00 401.1 728.85 Office Visit 06/04/2011 6:20p Main Office Danisha Eller M.D. 29746 250.00 Office Visit 05/31/2011 10:00a [facility] Office Danisha Eller M.D. 87333 250.00 Office Visit 05/22/2011 11:00a Main Office Danisha Eller M.D. 14314 715.00 272.2 790.6 V72.83 Office Visit 03/06/2011 9:10a Main Office Danisha Eller M.D. 19985 305.1 Office Visit 11/30/2010 10:20a [facility] Office Danisha Eller M.D. 87321 719.46 V72.83 Plan of Care 10/02/2017 - Danisha Eller M.D.I20.9 Angina pectoris, unspecifiedComments: exercise stress test with pictures.You are taking a fish oil pill in place of the aspirin because you had internal bleeding when taking the aspirin.K21.9 Gastro-esophageal reflux disease without esophagitisNew Medication:Omeprazole 20 mgI10 Essential (primary) hypertensionComments:Blood pressure well controlled at present Bring your new cuff with you to the stress test to compare with their cuff.N83.202 Unspecified ovarian cyst, left sideNew Xrays: Ultrasound Pelvic Nonob CompleteAllComments:~B_~U_Medication Management~b_~u_ Patient Understands medications she's taking? Yes No Are there Barriers to Adherence? Yes No Has the patient been asked about herbal supplements and therapies, and OTC meds? Yes No ~B_~U_Care Plan~b_~u_1. Patient has been queried about patient's goals/preferences and functional/ lifestyle goals at relevant visits. If relevant, describe: na2. Treatment goals as explained to the patient: above3. Are there barriers to meeting treatment goals? Yes No If Yes, please describe:4. Self-Management goals as described to the patient: Yes No as above.
--- OUTSIDE RECORDS SUMMARY | 2017-10-03 14:29 | XMS REPORT ---
:1950 External Reference #:[id number] Author Organization [facility] Address [address] [place] [address] Phone [phone] Care Team Providers Name Role Phone Danisha Eller Care Team Information Offshore Diver Unavailable Danisha Eller Primary Care Physician Unavailable Payers Type Date Identification Numbers Payment Provider Subscriber Commercial Effective: Policy Number: [id number] Medicare Blue Ppo Jose Cabrera 2017 Group Number: [id number] [address] [address] PayID: [id number] [place] [address] Problems Date Description Provider Status Onset: 01/22/2011 [...] Paternal siblings with Colon CANo fam hx [place].stroke,DM, Lung, Breast CA. Father 82, old age. Pacemaker. Mother 60's MVA. Had been healthy. Number of Children None Number of Siblings 6 siblings. Sister with heart diseaseNo cancer or diabetes2 uncles and an aunt had colon cancer Social History Type Date Description Comments Education Highest level of education completed is 12th grade Marital Status Patient is Living Situation no children. 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 bedtime Proair HFA 02/23/ Active Aerosol 108(90Bas 8.500 2 puffs R05 Sarah 2015 e) gm every 4 Jacki, mcg/Act hours as INSPECT[employer] HOSE needed Hydrocodone-Acet 01/29/ Active Tablets 7.5-325mg 120ta 1 by mouth M79.605 Danisha L. aminophen 2016 bs four times Daphnie, daily M.DDanna Lorazepam 08/14/ Active Tablets 1mg 30tab take F43.21 Any Nury 2016 s one-half or Johnston, one tablet IN[employer]OR LANDSCAPER/GARDENER by mouth at at bedtime for sleep. Glipizide 11/04/ Active Tablets 5mg 60tab 2 by mouth Danisha Chavira 2015 s in the Daphnie, morning. M.DDanna Freestyle 05/28/ Active Misc 1Box test every Danisha Chavira Lancets 2014 dx: Daphnie 250.00, M.DDanna last visit 05/10/14 Freestyle Lite 05/28/ Active Device 1unit testing Danisha Chavira Blood Glucose 2014 s every day Daphnie, Monitoring or as M.DDanna System directed, dx 250.00, last visit 05/10/14 Freestyle Lite 05/28/ Active Strips 1box test once Danisha Chavira Test 2014 dx: Daphnie 250.00, M.DDanna last visit 05/10/14 Metformin HCL 05/10/ Active Tablets 1000mg 60tab 1 by mouth Danisha Chavira 2015 s twice a day Prem Eller Pravastatin 12/03/ Active Tablets 10mg 90tab 1 by mouth E11.65 Danisha Chavira Sodium 2013 s at night Prem Eller Centrum Silver / Active Tablets Adult 50 one by Unknown Adult 50+ 0000 mouth daily Garlic Oil / Active Capsules 1000mg One by Unknown 0000 mouth once a day [place] 3 / Active Capsules 1000mg 1 by mouth Unknown 0000 once daily Cholestyramine 04/09/ Hx Powder 4GM/Dose 378gm 2 grams R19.7 Danisha Chavira 2017 - daily in 1 Daphnie, 01/25/ cup of M.D. 2017 water, work up to 4 grams in water/liqui d daily Azithromycin 02/23/ Hx Tablets 250mg 7tabs 2 take by Safia Smith 2015 - mouth Jacki, 04/09/ tabletstoda [employer]SE 2017 y,then one tab days 2-5 until finished Gabapentin 11/20/ Hx Capsules 300mg 180ca take one M76.32 Danisha Chavira 2015 - ps capsule by Daphnie 02/23/ mouth every M.D. 2016 morning and [...] 600mg 30tab 1 po bid J18.9 Amber 2016 - ER 12HR s Laly, 06/23/ Afnp-C 2016 Vitamin D 02/10/ Hx Capsules 72152Mwts 12cap take 1 Danisha Chavira (Ergocalciferol) 2014 - capsule by Daphnie, 08/14/ mouth once M.D. 2016 monthly Mobic 12/13/ Hx Tablets 7.5mg 30tab 1 by mouth M15.0 Danisha Chavira 2014 - s every Daphnie, 02/23/ morning. M.D. 2016 Flexeril 09/23/ Hx Tablets 10mg 30tab 1 po tid 728.85 Aileen 2014 - prn Aj, 10/03/ Afnp-C 2015 Chantix 12/17/ Hx Tablets 1mg 60tab 1 by mouth 305.1 Danisha Chavira 2013 - s bid. Daphnie, 05/10/ M.D. 2014 Metformin HCL 12/03/ Hx Tablets 500mg 180ta 1 by mouth 250.02 Sarah 2013 - twice Jacki, 05/10/ daily. [employer] 2014 Chantix Starting 10/19/ Hx Tablets 0.5mg X 1pack use as 305.1 [facility] Pee 2013 & 1 mg directed [facility] 02/08/ X 42 2013 Clarithromycin 05/04/ Hx Tablets 500mg 20tab 1 po bid x 461.0 Mary 2013 - s 10 days [facility] 2013 Januvia 09/19/ Hx Tablets 100mg 30tab take one 250.02 Sarah 2012 tablet by Jacki, 05/10/ mouth one [employer]SE 2015 time daily Chantix Starter 09/19/ Hx 1unit o.5 mg 305.1 Danisha Meeks 2012 - s daily x 3 Daphnie, 09/19/ days. 0.5 M.D. 2013 mg bid day 4-7. 1 mg po bid thereafter. Chantix 09/19/ Hx Tablets 0.5mg 93tab 1 po daily 305.1 Danisha Chavira 2012 - s x 3 days. 1 Daphnie, 10/19/ po bid days M.D. 2013 4-7 2 po bid daily thereafter Chantix 09/19/ Hx Tablets 1mg 60tab 1 po bid. 305.1 Danisha Chavira 2012 after Daphnie, 10/19/ finished M.D. 2013 with starter pack. Irbesartan 09/19/ Hx Tablets 75mg 30tab 1 by mouth E11.65 Danisha Chavira 2012 - every day Daphnie, 09/12/ M.D. 2017 Waqar Contour 06/03/ Hx Strips 100un test as Danisha Chavira Blood Glucose 2012 - its directed Daphnie, Test Strips 05/28/ twice a day M.D. 2014 Metformin HCL 05/08/ Hx Tablets 1000mg 60tab take one 250.02 Jose 2012 - tablet by Debra, 10/19/ mouth twice [employer]SE 2013 a day Azithromycin 01/10/ Hx Tablets 500mg 5tabs 1 po qd x 461.0 Jose 2011 - 5d Debra, 05/08/ [employer]SE 2012 Azithromycin 12/11/ Hx Tablets 250mg 12tab take 2 461.0 Jose 2011 - s tablets by Debra, 01/10/ mouth x 3d [employer]SE 2011 then take 1 tablet daily for next 6 days Proair HFA 12/11/ Hx Aerosol 108(90Bas 1unit 2 puffs q 461.0 Jose 2011 - e) mcg/ac s 3-4h prn Debra, 05/08/ cough/wheez [employer]SE 2012 e/sob Robitussin A-C 12/11/ Hx 4Oz 1-2 tsp po 461.0 Jose 2012 - q4h prn Debra, 05/08/ cough [employer]SE 2012 Hydrocodone/Acet 10/01/ Hx Tablets 2.5-500mg 30tab 1 po at hs 715.00 Danisha Chavira aminophen 2011 - s Daphnie, 12/11/ M.D. 2011 Lorazepam 08/13/ Hx Tablets 1mg 30tab 1 po tid Daphnie, 2011 for leg Danisha Chavira 10/01/ craerikainge 2012 Hydrocodone/Acet 08/13/ Hx Tablets 5-500mg 60tab 1 po bid 719.46 Danisha Chavira aminophen 2011 - s Daphnie, 10/11/ M.D. 2011 Warfarin Sodium 07/18/ Hx Tablets 5mg 90tab 2 po qd or Danisha Chavira 2011 s as directed Daphnie, 10/11/ M.D. 2011 Flexeril 07/18/ Hx Tablets 10mg 60tab 1 po bid 728.85 Danisha Chavira 2011 Daphnie, M.D. 2011 Oxycodone/Acetam 07/18/ Hx Tablets 5-325mg 90tab 1-2 po q4 453.40 Danisha Chavira inophen 2011 - hrs prn Daphnie, 08/13/ pain M.D. 2011 Lovenox 07/18/ Hx Solution 120mg/0.8 3unit inject sq Danisha Chavira 2011 s bid Daphnie, 08/13/ M.D. 2011 Lisinopril 06/25/ Hx Tablets 5mg 30tab 1 po qd Danisha Chavira 2011 - s Daphnie, 08/13/ M.D. 2011 Contour Blood 06/03/ Hx 1Box use to 250.00 Danisha Chavira Test Strips 2011 - measure Daphnie, 09/19/ blood sugar M.D. 2012 bid Lancets 06/03/ Hx 200un test blood 250.00 Danisha Chavira 2011 - its sugar twice Daphnie, 05/28/ daily mail M.D. 2014 to patient. Metformin HCL 05/30/ Hx Tablets 500mg 100ta 1 po bid 250.00 Danisha Chavira 2011 - bs Daphnie, 05/08/ M.D. 2013 Chantix Starter 03/06/ Hx 1unit o.5 mg 305.1 Danisha Meeks 2011 - s daily x 3 Daphnie, 05/21/ days. 0.5 M.D. 2012 mg bid day 4-7. 1 mg po bid thereafter. Lorazepam / Hx Tablets 1mg 30tab 1 po tid Unknown - s for leg 08/13/ crampinge 2011 Fish Oil / Hx Capsules 1200mg 1 po qd Unknown 0000 - DR 2016 Immunizations CPT Code Status Date Vaccine Lot # [id number] Given 09/19/2012 Pneumococcal Immunization [id number] Given 06/16/2012 Tdap Tetanus, W Pertussis [id number] Vital Signs Date Vital Result Comment 09/27/2017 BP Systolic 124 mmHg BP Diastolic [...] Test Date Test Result H/L Range Note Comprehensive Metabolic Prof 09/27/2017 Sodium 139 mEq/L 134-149 Potassium 4.6 mEq/L 3.6-5.5 Chloride 103 mEq/L [...] GFR >60 ml/min/1.73m^ >=60 Laboratory test finding 09/27/2017 TSH 2.52 mIU/L 0.50-6.00 Free T4 1.09 ng/dL 0.75-1.54 CBC Electronic Fma 09/27/2017 WBC 6.6 x10^3/UL 4.0-10.0 RBC 3.88 x10^6/UL Low 3.93-6.00 HGB 11.0 g/dL Low 12.0-17.0 HCT 34 % Low 35-50 MCV 88.1 fL 80.0-95.0 MCH 28.4 pg 25.6-32.2 MCHC 32.2 g/dL 32.2-36.0 RDW-CV 12.9 % 11.6-14.4 PLT 291 x10^3/UL 163-400 MPV 10.3 fL 9.4-12.4 Jimmy# 3.81 x10^3/UL 1.56-6.13 Lymph# 2.00 x10^3/UL 1.18-3.74 Jefferson# 0.42 x10^3/UL 0.24-0.82 Eos # 0.3 x10^3/UL 0.0-0.5 Baso # 0.06 x10^3/UL 0.01-0.08 Jimmy% 57.7 % 34.0-70.0 Lymph % 30.3 % 20.0-52.0 Jefferson% 6.4 % 5.0-12.0 Eos% 4.7 % 0.7-7.0 Baso% 0.9 % 0.1-1.2 Laboratory test finding 09/27/2017 Hemoglobin A1c (Fma) 7.2 % High 4.1- 5.7 Comprehensive Metabolic Prof [...] 0-50 HDL Risk Factor 3.0 CALC 0.0-4.4 Laboratory test finding 07/10/2017 Hemoglobin A1c (Fma) 7.4 % % High 4.1- 5.7 Urinalysis Profile 04/23/2017 Urine Color Yellow Urine Appearance Clear Urine Specific Terril 1.017 1.010-1.030 Urine pH 5.0 5-9 Urine [...] 3.5-5.0 Ast Redraw 9 U/L Low 13-39 CBC Auto Diff 09/06/2016 White Blood Count [...] finding 09/06/2016 Lactic Acid 1.3 mmol/L 0.5-2.0 3 Comp Metabolic Panel 09/06/2016 Sodium 134 mmol/L 133-145 Chloride 102 mmol/L 101-111 Co2 Carbon Dioxide 25 mmol/L 22-32 Glucose 201 mg/dL High 70-100 4 Blood Urea Nitrogen 9 mg/dL 6-24 5 Creatinine 0.71 mg/dL 0.51-0.95 6 BUN/Creatinine Ratio 12.7 8-20 Calcium 9.3 mg/dL 8.6-10.3 7 Total Protein 7.5 g/dL 6.4-8.9 8 Albumin 4.2 g/dL 3.2-5.2 9 Globulin 3.3 g/dL 2-4 Albumin/Globulin Ratio 1.3 1-3 Total Bilirubin 1.10 mg/dL High 0.2-1.0 10 Alkaline Phosphatase 70 U/L 34-104 11 Alt 16 U/L 7-52 12 Egfr Non- 82.9 >60 Egfr 106.6 >60 13 Potassium TNP mmol/L 3.5-5.0 14 Anion Gap 7 mmol/L 2-11 Ast TNP U/L 13-39 15 Laboratory test finding 09/06/2016 Lipase 19 U/L 11.0-82.0 16 C Reactive Protein 9.47 mg/L High < 5.00 17 Urinalysis Profile 09/06/2016 Urine Color Yellow Urine Appearance Clear Urine Specific Terril 1.019 1.010-1.030 Urine pH 5.0 5-9 Urine Urobilinogen Negative Negative Urine Ketones Negative Negative Urine Protein Negative Negative Urine Leukocytes 2+ Negative Urine Blood Negative Negative Urine Nitrite Negative Negative Urine Bilirubin Negative Negative Urine Glucose Negative Negative Urine White Blood Cell 1+(6-10/hpf) Absent Urine Red Blood Cell Absent Absent Urine Bacteria Absent Absent Urine Squamous Epithelial Cell Present Absent Laboratory test finding 09/06/2016 Hemoglobin A1c (Glyco 6.9 % High Less than 6.0 18 HGB) Urine Culture And Sensitivities SEE RESULT BELOW 19 Laboratory test finding 04/10/2016 Stool Culture [...] A1c (Fma) 6.6 % High 4.1- 5.7 Laboratory test finding 02/10/2015 Hemoglobin A1c 6.9 % High 4.1-5.7 (Fma/CMC,CX) Complete Blood Count 02/10/2015 WBC 9.4 x10^3/UL 3.6-9.6 RBC 4.60 x10^6/UL 3.90-5.70 HGB 13.3 g/dL 12.1-17.2 HCT 41 % 36-50 MCV 89.0 fL 82.2-97.4 MCH 29.0 pg 27.6-33.3 MCHC 32.6 g/dL Low 33.0-35.5 RDW 12.9 % 11.6-13.7 PLT 270 x10^3/UL 150-400 MPV 7.2 fL Low 7.4-10.4 Gran # 6.8 x10^3/UL 1.5-7.2 Lymph# 2.3 x10^3/UL 0.7-4.9 Jefferson# 0.3 x10^3/UL 0.1-0.9 Gran % 71.2 % 42.2-75.2 Lymph % 25.2 % 20.5-51.1 Jefferson% 3.6 % 1.7-9.3 Lipid Profile 02/10/2015 Cholesterol 209 mg/dL High 120-200 Triglycerides 151 mg/dL 30-200 HDL Cholesterol 66 mg/dL 30-85 LDL (Calculated) 113 CALC 0-129 VLDL Cholesterol 30 mg/dL 0-50 HDL Risk Factor 3.2 CALC 0.0-4.4 Laboratory test finding 02/10/2015 Vitamin D25 37 30-100 TSH 1.66 mIU/L 0.50-6.00 Free T4 1.26 ng/dL 0.75-1.54 Comprehensive Metabolic Prof 02/10/2015 Sodium 140 mEq/L [...] GFR >60 ml/min/1.73m^ >=60 Laboratory test finding 11/16/2014 Clotest SEE RESULT BELOW 25 Laboratory test finding 11/16/2014 Surgical Pathology SEE RESULT BELOW 26 Ict Hemoccult (Fma) 11/16/2014 Ict Hemoccult (1) 11/05/14 NEG Ict Hemoccult-(2) 11/06/14 NEG Ict-Hemoccult (3) 11/07/14 NEG Laboratory test 11/15/2014 Stool Occult Blood SEE RESULT BELOW 27 finding Laboratory test 11/04/2014 Hemoglobin A1c 8.1 % High 4.1-5.7 finding (a/[facility],CX) Laboratory test 05/10/2014 Hemoglobin A1c 7.7 % High 4.1-5.7 finding (a/[facility],CX) Laboratory test 02/08/2014 Hemoglobin A1c 7.8 % High 4.1-5.7 finding ([facility],CX) Lipid Profile 11/19/2013 Cholesterol 265 mg/dL High 120-200 Triglycerides 182 mg/dL 30-200 HDL Cholesterol 51 mg/dL 30-85 LDL (Calculated) 178 CALC High 0-129 VLDL Cholesterol 36 mg/dL 0-50 HDL Risk Factor 5.2 CALC High 0.0-4.4 Laboratory test 11/19/2013 Hemoglobin A1c 9.5 % High 4.1-5.7 finding (a/[facility],CX) Microalb/Creatinine, 11/19/2013 Microalb, Random 17.8 mg/L mg/L 0.5-37 Random Ur (a/CMC/CTX) Urine Creatinine (F/C/CTX) 10.6 mmol/L nmol/L Microalb.,Creatinine (F/C/CTX) 1.7mg/mmol Laboratory test finding 11/19/2013 TSH 2.51 mIU/L 0.50-6.00 Comprehensive Metabolic Prof 11/19/2013 Sodium 135 mEq/L [...] U/L 5-34 Total Bilirubin 0.9 mg/dL 0.2-1.3 Surgical Pathology 10/27/2013 S RUN DATE: <SEE NOTE> Surgical Pathology 07/15/2012 S RUN DATE: SEE NOTE> Laboratory test finding 06/16/2012 Hemoglobin A1c 8.9 % High 4.1-5.7 (Fma/CMC,CX) Laboratory test finding 05/08/2012 Hemoglobin A1c 10.1 % High 4.1-5.7 (Fma/CMC,CX) Laboratory test finding 10/15/2011 Surgical Pathology 31 - <SEE NOTE> Laboratory test finding 10/02/2011 Inr (Fma) 2.5 2.0-3.0 Laboratory test finding 09/13/2011 Inr (Fma) 3.1 High 2.0-3.0 Laboratory test finding 08/30/2011 Inr (Fma) 2.6 2-3 Laboratory test finding 08/22/2011 Inr (Fma) 3.8 High 2.0-3.0 Laboratory test finding 08/14/2011 Inr (Fma) 2.6 High 0.9-1.1 Laboratory test finding 08/09/2011 Inr (Fma) 1.4 Low 2-3 Laboratory test finding 08/01/2011 Inr (Fma) 2.0 2-3 Laboratory test finding 07/28/2011 Inr (Fma) 2.9 2.0-3.0 Laboratory test finding 07/25/2011 Inr (Fma) 2.5 2.0-3.0 Laboratory test finding 07/23/2011 Inr (Fma) 1.6 Low 2.0-3.0 Laboratory test finding 07/21/2011 Inr (Fma) 1.3 Low 2.0-3.0 Laboratory test finding 07/19/2011 Inr (Fma) 1.1 Low 2.0-3.0 Comprehensive Metabolic 07/19/2011 Albumin 4.5 g/dL 3.8-5.5 Prof Alk. Phos. 93 U/L 30-110 Alt (SGPT) [...] 0.6-2.2 BUN/Creat Ratio 12.8 Calc 8.0-36.0 CBC Electronic (a) 07/19/2011 WBC 7.5 3.6-9.6 RBC 4.06 3.90-5.70 Hemoglobin (Fma/CMC/CTX) 11.5 g/dL Low 12.1 - 17.2 Hematocrit (Fma/CMC/CTX) 35.3 % Low 36.1 - 50.3 Platelets 368 10^3/ul 150-400 Lymph% 32.6 20.5-51.1 Mixed% 3.4 Neutrophils % 64.0 Mean Corpuscular Vol 87 82.2-97.4 Mean Corpuscular Hemoglobin 28.4 27.6-33.3 Mean Corpuscular Hemo Concen 32.7 32.0-36.0 RDW 12.1 11.6-13.7 Mean Platelet Volume 7.5 6.5-11.0 Laboratory test finding 07/18/2011 Magnesium 1.9 mg/dL 1.7-2.6 CBC Auto Diff 07/18/2011 White Blood Count [...] > 60 eGFR 94.4 > 60 35 CBC Auto Diff 06/13/2011 White Blood Count [...] Yellow 36 Appearance-Urine CLEAR Clear 36 Specific Terril-Ur 1.021 1.010-1.030 36 Esterase-Urine 1+ Negative 36 Nitrite NEGATIVE Negative 36 Odaqcgpkxyzd-Fy-GRZ NEGATIVE Negative 36 Protein-Urine NEGATIVE Negative 36 PH-Urine 5.0 5-9 36 Blood-Urine NEGATIVE Negative 36 Ketones-Urine NEGATIVE Negative 36 Bilirubin-Ur NEGATIVE Negative 36 Glucose-Urine NEGATIVE Negative 36 WBC-Urine 3-5 0-5 36 RBC-Urine 0-2 0-2 36 Epith Cells-Ur OCCASIONAL None 36 Bacteria-Urine TRACE None 36 Urine Culture & 06/13/2011 M <SEE NOTE> 36, 40 Sensitivi Basic Metabolic Panel 06/11/2011 Sodium 135 mmol/L 135-145 Potassium 4.2 mmol/L 3.5-5.0 Chloride 99 mmol/L Low 101-111 Co2 (Carbon Dioxide) 29.0 mmol/L 22-32 Anion Gap 7.0 mmol/L 2-11 41 Glucose 189 mg/dL High 70-100 BUN 14 mg/dL 6-24 Creatinine 0.7 mg/dL 0.50-1.40 One Over Creatinine 1.42 BUN/Creatinine Ratio 20.0 8-20 Calcium 9.1 mg/dL 8.1-9.9 eGFR Non- 85.6 > 60 eGFR 110.1 > 60 42 CBC No Diff 06/11/2011 White Blood Count 10.4 CUMM 4.8-10.8 Red Cell Count 4.40 CUMM 4.2-5.4 Hemoglobin 13.5 g/dL 12.0-16.0 Hematocrit 38 % 35-47 Mean Corpuscular Volume 87 um3 79-97 Mean Corpuscular Hemoglob 31 pg 27-31 Mean Corpuscular HGB Cone 35 g/dL 32-36 Redcell Distribution WDTH 13 % 10.5-15 Platelet Count 282 CUMM 150-450 Mean Platelet Volume 9.5 um3 7.4-10.4 Protime 06/11/2011 Inr 0.89 0.88-1.13 43 Protime 10.5 SEC 10.3-13.5 44 Laboratory test finding 05/31/2011 Hemoglobin A1c [...] (Fma/CMC/CTX) 14.9 g/dL 12.1 - 17.2 Hematocrit (a/CMC/CTX) 44.0 % 36.1 - 50.3 Platelets 314 10^3/ul 150-400 Lymph% 27.3 20.5-51.1 Mixed% 6.6 Neutrophils % 66.1 Mean Corpuscular Vol 88 82.2-97.4 Mean Corpuscular Hemoglobin 29.6 27.6-33.3 Mean Corpuscular Hemo Concen 33.9 32.0-36.0 RDW 12.0 11.6-13.7 Mean Platelet Volume 7.8 6.5-11.0 1 SEE RESULT BELOW Name: JOSE CABRERA Darrick : [address]: Tana Kendall MD Acct: [id number] Unit: [id number] AGE: 67 Location: ED Re04/23/17 SEX: F Status: DEP ER SPEC: [id number] SOLIS: 04/23/17-[address] [place] [address] DR: Sarah KAISER REQ: [id number] RECD: 04/23/17-1310 STATUS: PHONG DA SILVA DR: Tana Eller MD _ SOURCE: URINE SPDESC: ORDERED: Urine Culture Procedure Result Reported Site Urine Culture Final 04/24/17- 1209 ML No growth of clinically significant organisms * ML - MAIN LAB ([facility]) . END OF REPORT * ML=Testing performed at Main Lab DEPARTMENT OF PATHOLOGY, [address] [place] [address] William Zayas M.D. Director [facility] # [id number] 2 SEE RESULT BELOW Name: JOSE CABRERA : [address]: Gerardo Lee MD Acct: [id number] Unit: [id number] AGE: 66 Location: ENDO Re11/02/16 SEX: F Status: DEP REF SPEC: [id number] SOLIS: 11/02/16-[address]: Gerardo Lee MD REQ: [id number] RECD: 11/02/16 STATUS: KENIA DA SILVA DR: Danisha Eller MD _ ORDERED: LEVEL 4/3 FINAL [...] performed at Main Lab DEPARTMENT OF PATHOLOGY, [address], [place] [address] William Zayas M.D. Director [facility] # [id number] RUN DATE: 11/06/16 [facility] LAB LIVE PAGE 2 Patient: JOSE CABRERA Darrick [id number] (Continued) GROSS DESCRIPTION (Continued) GROSS DESCRIPTION (Continued) fragment, which is entirely submitted in one cassette. Signed (signature on file) Sarah Sotelo MD 07/18 1246 END OF REPORT * ML=Testing performed at Main Lab DEPARTMENT OF PATHOLOGY, [address] [place] [address] William Zayas M.D. Director [facility] # [id number] 3 [facility] Severe Sepsis and Septic Shock Management Bundle Measure requires all lactic acids initially measuring >2.0 mmol/L be repeated. 4 Specimen hemolyzed. Result may not be valid. 5 Specimen hemolyzed. Result may not be valid. 6 Specimen hemolyzed. Result may not be valid. 7 Specimen hemolyzed. Result may not be valid. 8 Specimen hemolyzed. Result may not be valid. 9 Specimen hemolyzed. Result may not be valid. 10 Specimen hemolyzed. Result may not be valid. 11 Specimen hemolyzed. Result may not be valid. 12 Specimen hemolyzed. Result may not be valid. 13 Because ethnic data is not always readily [...] 15-29 5 Kidney failure <15 (or dialysis) 14 Unable to report test result due to hemolysis. 15 Unable to report test result due to hemolysis. 16 Specimen hemolyzed. Result may not be valid. 17 Specimen hemolyzed. Result may not be valid. Acute inflammation: >10.00 18 Therapeutic target for the treatment of diabetes Mellitus patients is <7% HBA1C, and in selective patients <6.0%.Please refer to [place] [employer] Diabetic care guidelines for further information. 19 SEE RESULT BELOW Name: JOSE CABRERA : [address]: Aneesh Hernandez MD Acct: [id number] Unit: [id number] AGE: 66 Location: [facility] 411-02 Re09/06/16 SEX: F Status: ADM Arun SPEC: [id number] SOLIS: 09/06/16-[address] [facility] [address]: Sahil Davis MD REQ: [id number] RECD: 09/06/16 STATUS: PHONG DA SILVA DR: Danisha Eller MD _ SOURCE: URINE SPDESC: ORDERED: Urine Culture Procedure Result Reported Site Urine Culture Final 09/07/16- 1230 ML No growth of clinically significant organisms * ML - [facility] ([facility]) . END OF REPORT * ML=Testing performed at Main Lab DEPARTMENT OF PATHOLOGY, [address] [place] [address] William Zayas M.D. Director [facility] # [id number] 20 SEE RESULT BELOW Name: JOSE CABRERA : [address]: Danisha Eller MD Acct: [id number] Unit: [id number] AGE: 65 Location: [facility] Re04/17/16 SEX: F Status: REG REF SPEC: [id number] SOLIS: 04/17/16-[address] [facility] [address]: Danisha Eller MD REQ: [id number] RECD: 04/17/16-8784 STATUS: COMP _ SOURCE: STOOL SPDESC: ORDERED: [...] performed at Main Lab DEPARTMENT OF PATHOLOGY, [address] [place] [address] William Zayas M.D. Director [facility] # [id number] Patient: JOSE CABRERA [id number] (Continued) Specimen: [id number] Collected: 04/17/16-1399 Received: 04/17/16-1539 (Continued) Procedure Result Reported Site Stool Specimen Description Final (continued) 04/17/16- 1745 Stool Consistency Soft Shiga Toxin 1 2 [...] not recommended. Ova Parasite Concen Full Final 04/18/16918 ML Test not performed * ML - MAIN LAB ([facility]) . END OF REPORT * ML=Testing performed at Main Lab DEPARTMENT OF PATHOLOGY, [address] [place] [address] William Zayas M.D. Director [facility] # [id number] 21 SEE RESULT BELOW Name: JOSE CABRERA : [address]: Danisha Eller MD Acct: [id number] Unit: [id number] AGE: 65 Location: [facility] Re04/10/16 SEX: F Status: REG REF SPEC: [id number] SOLIS: 04/10/16-[address] [facility] [address]: Danisha Eller MD REQ: [id number] RECD: 04/10/167136 STATUS: RES _ SOURCE: STOOL SPDESC: ORDERED: [...] not performed * ML - MAIN LAB ([facility]) . END OF REPORT * ML=Testing performed at Main Lab DEPARTMENT OF PATHOLOGY, [address] [place] [address] William Zayas M.D. Director [facility] # [id number] 22 SOURCE: STOOL PARASITIC EXAMINATION FINAL No parasites seen. Cryptosporidium, Cyclospora, and microsporidia are not readily detected by this method. Single negative specimen does not rule out parasitic infection. Test Performed by: [address] [address] [place] [employer]: Ger Braxton II, M.D., Ph.D. 23 consistent w/ previous results 24 consistent w/ previous results 25 SEE RESULT BELOW Name: JOSE CABRERA : [address]: Gerardo Lee MD Acct: [id number] Unit: [id number] AGE: 64 Location: ENDO Re11/16/14 SEX: F Status: REG REF SPEC: [id number] SOLIS: 11/16/14-[address] [facility] [address]: Gerardo Lee MD REQ: [id number] RECD: 11/16/14-134 STATUS: PHONG DA SILVA DR: Danisha Eller MD _ SOURCE: GAS ANTRUM SPDESC: ORDERED: Clotest Procedure Result Verified Site Clotest Final 11/17/14- 0752 ML Clotest Negative * ML - MAIN LAB ([facility]) . END OF REPORT * ML=Testing performed at Main Lab DEPARTMENT OF PATHOLOGY, [address] [place] [address] William Zayas M.D. Director [facility] # [id number] 26 SEE RESULT BELOW Name: JOSE CABRERA : [address]: Gerardo Lee MD Acct: [id number] Unit: [id number] AGE: 64 Location: ENDO Re11/16/14 SEX: F Status: REG REF SPEC: [id number] SOLIS: 11/16/14-[address] [facility] [address]: Gerardo Lee MD REQ: [id number] RECD: 11/16/141593 STATUS: KENIA DA SILVA DR: Danisha Eller [...] performed at Main Lab DEPARTMENT OF PATHOLOGY, [address] [place] [address] William Zayas M.D. Director [facility] # [id number] 27 SEE RESULT BELOW Name: JOSE CABRERA Darrick : [address]: Gerardo Lee MD Acct: [id number] Unit: [id number] AGE: 64 Location: ENDO Re11/16/14 SEX: F Status: REG REF SPEC: [id number] SOLIS: 11/15/14-[address] [facility] [address]: Gerardo Lee MD REQ: [id number] RECD: 11/16/14 STATUS: PHONG DA SILVA DR: Danisha Eller MD _ SOURCE: STOOL SPDESC: ORDERED: Hemoccult Procedure Result Verified Site Stool Occult Blood Final 11/16/14- 1445 ML Stool Occult Blood Negative * ML - MAIN LAB ([facility]) . END OF REPORT * ML=Testing performed at Main Lab DEPARTMENT OF PATHOLOGY, [facility] [place], [place] [address] William Zayas M.D. Director [facility] # [id number] 28 consistent w/ previous results 29 RUN DATE: 10/28/13 [facility] LAB LIVE PAGE 1 RUN TIME: 1312 [facility] [place], [place] [address] Specimen Inquiry Name: JOSE CABRERA : [address]: Gerardo Lee MD Acct: [id number] Unit: [id number] AGE: 63 Location: ENDO Re10/27/13 SEX: F Status: REG REF SPEC: [id number] SOLIS: 10/27/13- SUBM DR: Gerardo Lee MD REQ: [id number] RECD: 10/27/13-1156 STATUS: KENIA DA SILVA DR: [...] is received in formalin labeled Jose Cabrera, Ileal Cecal Polyp and consists of two vásquez-pink irregular to polypoid soft tissue fragments measuring 0.4 x 0.2 x 0.2 cm. and 0.9 x 0.5 x 0.5 cm. The larger tissue is inked, bisected, and the specimen is submitted entirely in one cassette. Signed (signature on file) Sarah Sotelo MD 1312 END OF REPORT * ML=Testing performed at Main Lab DEPARTMENT OF PATHOLOGY, [facility] [place], [place] [address] William Zayas M.D. Director [facility] # [id number] 30 RUN DATE: 07/16/12 [facility] LAB LIVE PAGE 1 RUN TIME: 1500 [facility] [address] [place], [place] [address] Specimen Inquiry Name: JOSE CABRERA : [address]: Gerardo Lee MD Acct: [id number] Unit: [id number] AGE: 62 Location: ENDO Re07/15/12 SEX: F Status: REG REF SPEC: [id number] SOLIS: 07/15/12- SUBM DR: Gerardo Lee MD REQ: [id number] RECD: 07/15/12 STATUS: KENIA DA SILVA DR: [...] performed at Main Lab DEPARTMENT OF PATHOLOGY, [facility] [place], [place] [address] William Zayas M.D. Director [facility] Permit #[id number] RUN DATE: 07/16/12 [facility] LAB LIVE PAGE 2 RUN TIME: [address] [place] [address] Specimen Inquiry Patient: JOSE CABRERA [id number] (Continued) GROSS DESCRIPTION (Continued) GROSS DESCRIPTION (Continued) [...] performed at Main Lab DEPARTMENT OF PATHOLOGY, [address] [place] [address] William Zayas M.D. [facility] Permit #[id number] ---- RUN DATE: 10/17/11 [facility] NMI LIVE PAGE 1 RUN TIME: 7061 Specimen Inquiry RUN USER: INTERFACE -- Name: JOSE CABRERA Acceugene#: [id number] Status: REG REF Re10/15/11 Age/Sex: 61/F Unit#: [id number] Location: [facility] : 54 -- Specimen: [id number] SOUT Spec Date:10/15/[address] [facility] [address]: Danisha mittal MD Spec Type: SURGICAL P Received:10/16/11-1243 Copies to: SPECIMEN 1) LEFT BACK 2) MID BACK 3) RIGHT BREAST 4) RIGHT AXILLA HISTORY CLINICAL INFORMATION: No history given GROSS DESCRIPTION 1) The specimen is received in formalin labelled Jose Tudi, and consists of a fragment of white [...] received in formalin labelled Jose Tudi, Right Axilla, and consists of one fragment [...] features. Signed Electronically by: DANIELE MAYES 10/17/11 1455 -- DEPARTMENT OF PATHOLOGY, [address] [place] [address] [facility] Permit #[id number] William Zayas M.D. Director Daniele Mayes M.D. Numerical Control Nesting Operator Dir tung -- 32 RESULT CARRIE'D 33 Anion gap measurement may be of limited value in the presence of any alkalosis, especially in a combined acid base disorder. . 34 A metabolite of Naproxen, O-desmethylnaproxen, has been shown to interfere with the Jendrassik-Silerton method for measuring total bilirubin. Samples from [...] <15 (or dialysis) 40 RUN DATE: 06/15/11 [facility] NMI LIVE PAGE 1 RUN TIME: 902 Specimen Inquiry RUN USER: INTERFACE Name: JOSE CABRERA#: [id number] Status: REG REF Re06/13/11 Age/Sex: 61/F Unit#: [id number] Location: [facility] : [birth year] SPEC #: [id number] SOLIS: 06/13/11 STATUS: COMP REQ #: [id number] RECD: 06/13/[address] [facility] [address]: Omari SWANSON,Zachariah SOURCE: URINE ENTR: 06/13/11-[address]: Daphnie SWANSON, Danisha Chavira SPDESC: ORDERED: URINE C S QUERIES: SPECIMEN DESCRIPTION: URINE, RANDOM ACT WKST: UR 06/15/11 #1 Procedure Result Verified Site > URINE CULTURE SENSITIVI Final 06/15/11- 0903 ML SCANT NORMAL URETHRAL OR PERINEAL DEEPTI - [facility] Permit #[id number] [address] [place] [id number] DEPARTMENT OF PATHOLOGY, [address] [place] [address] [facility] Permit #[id number] William Zayas M.D. Director Daniele Mayes M.D. Electrotyper Helper 41 Anion gap measurement may be of limited value in the presence of any alkalosis, especially in a combined acid base disorder. . 42 Because ethnic data is not always readily [...] 15-29 5 Kidney failure <15 (or dialysis) 43 Recommended INR for Patients on Oral Anticoagulants Prophylaxis 2.0 - 3.0 Treatment of thrombosis 2.0 - 3.0 Prevention of embolism 2.0 - 3.0 Prevention of embolism from prosthetic heart valves 2.5 - 3.5 44 DIAGNOSIS,TREATMENT,AND THERAPY MUST BE BASED ON THE INR VALUE ALONE. 45 result reckd' 46 RESULT CARRIE'D 47 RESULT CARRIE'D Procedures Date CPT Code Description Status Comment 09/27/2017 26796 Electrocardiogram Complete Completed 06/06/2017 71391 Remove Skin Tags Up To 15 Completed 01/09/2017 20116 Finger Or Heel Stick Completed 11/02/2016 Colonoscopy Completed 08/15/2016 Diabetic Retinal Eye Exam Completed Dr Richardson No Diabetes retinopathy 11/21/2015 71860 Finger Or Heel Stick Completed 08/15/2015 90346 Finger Or Heel Stick Completed 06/14/2015 96677 Pulse Oximetry Completed 11/04/2014 73384 Finger Or Heel Stick Completed 05/10/2014 00753 Finger Or Heel Stick Completed 02/08/2014 50882 Finger Or Heel Stick Completed 10/27/2013 Colonoscopy Completed 07/15/2012 Colonoscopy Completed 06/20/2012 Mammogram Completed 06/19/2012 20508 Excise Benign Lesion 1.1-2CM Completed Trunk/Arm/Leg 06/19/2012 12748 Biopsy Skin Lesion Single Completed 06/16/2012 Mammogram Completed can't take time off from work. 06/16/2012 53122 Finger Or Heel Stick Completed 05/08/2012 27859 Finger Or Heel Stick Completed 10/12/2011 48547 Shave Skin Lesion <.6CM Completed Trunk/Arm/Leg 10/12/2011 41084 Remove Skin Tags Up To 15 Completed 10/12/2011 39210 Shave Skin Lesion <.6CM Completed Trunk/Arm/Leg 10/02/2011 25382 Finger Or Heel Stick Completed 09/13/2011 53561 Finger Or Heel Stick Completed 08/30/2011 76423 Finger Or Heel Stick Completed 08/22/2011 04389 Finger Or Heel Stick Completed 08/14/2011 51065 Finger Or Heel Stick Completed 08/09/2011 24333 Finger Or Heel Stick Completed 08/01/2011 07261 Finger Or Heel Stick Completed 07/28/2011 41075 Finger Or Heel Stick Completed 07/25/2011 02941 Finger Or Heel Stick Completed 07/23/2011 07347 Finger Or Heel Stick Completed 07/21/2011 57423 Finger Or Heel Stick Completed 05/22/2011 74475 Electrocardiogram Complete Completed 11/30/2010 68592 Electrocardiogram Complete Completed Encounters Type Date Location Provider CPT E/M Dx Office Visit 09/18/2017 9:00a [place] [address] E11.65 I10 Office Visit 07/10/2017 1:00p Main Office Danisha Eller M.D. 13676 Z01.818 M17.12 E11.65 I10 Office Visit 06/06/2017 3:20p [facility] Danisha Eller M.D. 38834 K21.9 L91.8 S90.852A M25.561 Office Visit 01/25/2017 11:30a [place] [address] R04.0 Office Visit 01/09/2017 6:40p Main Office Danisha Eller M.D. 87137 E11.65 Z12.31 Office Visit 09/17/2016 6:15p Main Office CHRIS Durbin 77696 N39.0 Office Visit 04/09/2016 5:40p Main Office Danisha Eller M.D. 42181 E11.65 R19.7 F43.21 Office Visit 02/24/2016 11:30a [facility] Sarah CHRIS Echeverria 52503 R05 R19.7 Office Visit 01/30/2016 3:30p Main Office Danisha Eller M.D. 27339 M79.605 E11.65 Office Visit 11/21/2015 7:20p Main Office Danisha Eller M.D. 32342 E11.65 F43.21 M76.32 K58.0 Office Visit 08/15/2015 6:30p Main Office Danisha Eller M.D. 43294 E11.65 F43.21 Office Visit 06/14/2015 7:30p Main Office Odette Thompson 01563 J18.9 Office Visit 02/10/2015 9:40a [facility] Danisha Eller M.D. 84531 E11.65 M79.641 M79.642 E55.9 Office Visit 12/13/2014 4:20p Main Office Danisha Eller M.D. 87429 E11.65 M15.0 I10 Office Visit 11/04/2014 9:40a [facility] Danisha Eller M.D. 30808 250.02 578.1 Office Visit 09/23/2014 8:30a Main Office Aileen Rocha Mckaynp-C 21630 847.1 Office Visit 05/10/2014 9:40a Main Office Danisha Eller M.D. 23479 250.02 381.89 Office Visit 02/08/2014 5:40p Main Office Danisha Eller M.D. 34855 250.00 Office Visit 12/03/2013 11:30a [facility] Danisha Eller M.D. 05149 250.02 278.00 305.1 780.52 Office Visit 10/19/2013 6:45p Main Office Mary HouseSEAN 02102 250.02 305.1 782.9 Office Visit 05/04/2013 6:15p Main Office Mary HouseSEAN 60803 461.0 466.0 Office Visit 09/19/2012 10:50a [facility] Danisha Eller M.D. 31220 250.02 715.00 787.91 305.1 v03.82 Office Visit 07/01/2012 11:20a Main Office Danisha Eller M.D. 86147 709.2 V58.32 Office Visit 06/19/2012 2:00p [facility] Danisha Eller M.D. 98511 709.2 Office Visit 06/16/2012 5:40p Main Office Danisha Eller M.D. 07358 715.00 250.02 701.4 v06.5 Office Visit 05/08/2012 9:30a [facility] CHRIS Durbin 01546 250.02 250.00 Office Visit 12/12/2011 11:45a Main Office Jose Richardson, [facility] 45929 461.0 Office Visit 10/12/2011 2:30p [facility] Office Danisha Eller M.D. 46972 782.9 701.9 216.5 Office Visit 10/02/2011 11:30a Main Office Danisha Eller M.D. 89253 715.00 453.40 250.00 782.9 v58.61 Office Visit 08/14/2011 9:20a Main Office Danisha Eller M.D. 59421 250.00 719.46 453.40 V58.61 Office Visit 07/19/2011 9:00a [facility] Danisha Eller M.D. 48315 453.40 728.85 715.00 v58.61 Office Visit 07/16/2011 5:40p Main Office Danisha Eller M.D. 41107 719.46 250.00 401.1 728.85 Office Visit 06/04/2011 6:20p Main Office Danisha Eller M.D. 98048 250.00 Office Visit 05/31/2011 10:00a [facility] Danisha Eller M.D. 30725 250.00 Office Visit 05/22/2011 11:00a Main Office Danisha Eller M.D. 41588 715.00 272.2 790.6 V72.83 Office Visit 03/06/2011 9:10a Main Office Danisha Eller M.D. 09491 305.1 Office Visit 11/30/2010 10:20a [facility] Danisha Eller M.D. 46535 719.46 V72.83 Plan of Care 09/27/2017 - Any Johnston, NPR42 Dizziness and giddinessComments:Do not drive or operate heavy machinery if experiencing dizziness. Make sure you are drinking at least 8-10 glasses of water a dayReturn or seek medical care for the following: numbness or tingling of your extremitieschest painsevere headachechange in your visionchange in speech loss of consciousness Notify office if worsening symptoms or failure to improve. Check blood glucose daily in the morningbefore breakfast and with any episode of dizziness/sweating. Please keep a logFollow up:2-4 [id number] Type 2 diabetes mellitus with hyperglycemiaComments:Recommend yearly diabetic eye and foot exams, and check on blood pressure periodically. Goal blood sugar is less than 140 in the morning or A1c less than 7.I10 Essential (primary) hypertensionComments:The patient will continue to monitor blood pressure and let me know the blood pressure results if there are readings persistently above 140/80. Goal blood pressure is less than 140/80. Recommend low salt/cardiac diet and routine exercise.AllComments:~B_~U_Medication Management~b_~u_ Patient Understands medications she's taking? Yes No Are there Barriers to Adherence? Yes No Has the patient been asked about herbal supplements and therapies, and OTC meds? Yes No ~B_~U_Care Plan~b_~u_1. Patient has been queried about patient's goals/preferences and functional/lifestyle goals at relevant visits. If relevant, describe: na2. Treatment goals as explained to the patient: above3. Are there barriers to meeting treatment goals? Yes No If Yes, please describe:4. Self-Management goals as described to the patient: Yes NoFollow up:As always, we strongly encourage a healthy diet and making physical activity a part of your every day life. If you have questions about how or where to start, please contact the office.
--- OUTSIDE RECORDS SUMMARY | 2017-10-03 14:30 | XMS REPORT ---
:1950 External Reference #:[id number] Author Organization Hum Address [address] [place] [address] [place] [address] Phone [phone] Care Team Providers Name Role Phone Danisha Eller MD Primary Care Physician Unavailable Payers Type Date Identification Numbers Payment Provider Subscriber Health Maintenance Policy Number: Medicare Blue Ppo Jose Mcdonald Organization (HMO) [id number] PayID: [id number] [address] [address] [place] [address] Commercial Effective: Policy Number: [employer] Medicaid Jose Mcdonald 02/01/2011 [id number] Expires: 06/25/2017 PayID: [id number] [address] [address] [place] [address] Problems Description No Information Family History Date Family Member(s) Problem(s) Comments General Hypertension Social History Type Date Description Comments Marital Status Lives With nephew 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 Cigarette Use Quit 3 Years Ago ETOH Use Occasionally consumes alcohol Smoking Patient is a former smoker Quit in 2016 Recreational Drug Use Denies Drug Use Daily Caffeine Consumes on average 1 pot of regular coffee per day Daily Caffeine consumes chocolate occasionally Exercise Type/Frequency Exercises sporadically Exercise Type/Frequency Knee excercise strenghting General Hx Text Do you follow a special diet : no regular diet no food avoid Do you have problems snoring, daytime fatigue: yes daytime fatigue Allergies, Adverse Reactions, Alerts Date Description Reaction Status Severity Comments 08/29/2016 Morphine active 08/29/2016 Penicillin active Medications Medication Date Status Form Strength Qnty SIG Indications Ordering Provider Percocet 08/29/ Active Tablets 5-325mg 90tab 1-2 by Dirk 2017 s mouth Omari, every 4-6 M.D. hours as needed pain. generic Ok Cyclobenzaprine 08/29/ Active Tablets 10mg 90tab take 1 Dirk HCL 2017 s tab by Omari, mouth 2-3 M.D. times a day as needed Colace 08/29/ Active Capsules 100mg 90cap 1 tab by Dirk 2017 s mouth 2-3 Omari, times a M.D. day as needed Ondansetron HCL 08/29/ Active Tablets 4mg 30tab 1 tablet Dirk 2017 s by mouth Omari, q6 hours M.D. as needed nausea Xarelto 08/14/ Active Tablets 10mg 30tab Take one Dirk 2017 s tablet by Omari mouth M.D. daily after surgery. Ranitidine HCL 06/06/ Active Tablets 300mg take 1 Daphnie 2017 tablet by Danisha kathleen at MD Cait bedtime Glipizide ER 04/03/ Active Tablets ER 5mg 1 tablet Daphnie2017 24HR po daily Danisha Chavira MD morning ( med change Fall 2016 decrease 2 tab Am) Metformin HCL 02/26/ Active Tablets 1000mg 1 by Daphnie 2016 mouth Danisha twice a MD Cait Pravastatin 01/17/ Active Tablets 10mg 1 tablet Daphnie 2016 po daily Danisha evening MD Cait Irbesartan 12/17/ Active Tablets 75mg 1 by Daphnie 2016 mouth Danisha every day MD Cait Fish Oil Baldwin-3 / Active Capsules 1000mg 1 cap po Unknown 0000 daily Odorless Garlic / Active 0.75mg 1 cap po Unknown 0000 daily Centrum Silver / Active Tablets 1 by Unknown 0000 mouth every day Percocet 07/31/ Hx Tablets 5-325mg 60tab 1 po Dirk 2011 q4-6h prn Omari, 03/04/ pain M.D. 2017 Bactrim DS 06/13/ Hx Tablets 800-160mg 14tab 1 po bid Dirk 2011 for 7 Omari, 03/04/ days M.D. 2017 Coumadin 06/12/ Hx Tablets 2.5mg 90tab take 1-3 Dirk 2011 as Omari, 03/04/ directed M.D. 2017 at 5pm daily Percocet 06/12/ Hx Tablets 5-325mg 60tab 1-2 tabs Dirk 2011 - po q4-6 Omari, 03/04/ prn pain M.Alejandra 2017 Centrum Silver / Hx Tablets 50+Women Unknown 50+Women 0000 - 2017 Vital Signs Date Vital Result Comment 09/25/2017 Height 64 inches 5'4" Weight 271.00 lb BP Systolic 134 mmHg BP Diastolic 88 mmHg Respiratory Rate 20 /min Body Temperature 97.8 F Pain Level 2 BMI (Body Mass Index) 46.5 kg/m2 08/14/2017 Height 64 inches 5'4" Weight 271.00 lb BP Systolic 126 mmHg BP Diastolic 80 mmHg Respiratory Rate 20 /min Body Temperature 97.1 F Pain Level 8 BMI (Body Mass Index) 46.5 kg/m2 07/19/2017 Height 64 inches 5'4" Weight 274.00 lb with sandals Heart Rate 82 /min BP Systolic 110 mmHg Rue lg cuff BP Diastolic 50 mmHg Rue lg cuff BP Systolic Sitting 128 mmHg Lue lg cuff BP Diastolic Sitting 80 mmHg Lue lg cuff BP Systolic Standing 142 mmHg Lue lg cuff BP Diastolic Standing 80 mmHg Lue lg cuff Respiratory Rate 18 /min BMI (Body Mass Index) 47.0 kg/m2 06/26/2017 Heart Rate 88 /min BP Systolic 140 mmHg BP Diastolic 96 mmHg Respiratory Rate 16 /min Body Temperature 97.9 F Pain Level 5 08/29/2016 Height 63 inches 5'3" Weight 250.00 lb Heart Rate 91 /min BP Systolic 139 mmHg BP Diastolic 76 mmHg Body Temperature 98.0 F BMI (Body Mass Index) 44.3 kg/m2 Results Test Date Test Result H/L Range Note Type & Screen 08/14/2017 Patient Blood Type A Positive 1 Antibody Screen NEGATIVE 1 Urinalysis Profile 07/08/2017 Urine Color Yellow Urine Appearance Cloudy Urine Specific [place] 1.008 Low 1.010-1.030 Urine pH 6.0 5-9 Urine Urobilinogen Negative Negative Urine Ketones Negative Negative Urine Protein Negative Negative Urine Leukocytes 3+ Negative Urine Blood Negative Negative Urine Nitrite Negative Negative Urine Bilirubin Negative Negative Urine Glucose Negative Negative Urine White Blood Cell 3+(>20/hpf) Absent Urine Red Blood Cell Absent Absent Urine Bacteria Absent Absent Urine Squamous Epithelial Cell Present Absent Urine Renal Epithelial Cells Present Absent Inr/Protime 07/08/2017 Inr 0.88 0.77-1.02 Laboratory test finding 07/08/2017 Partial Thrombo Time 27.8 seconds 26.0 -36.3 PTT CBC Auto Diff 07/08/2017 White Blood Count 9.0 10^3/uL 3.5-10.8 Red Blood Count 4.33 10^6/uL 4.0-5.4 Hemoglobin 12.5 g/dL 12.0-16.0 Hematocrit 38 % 35-47 Mean Corpuscular Volume 87 fL 80-97 Mean Corpuscular Hemoglobin 29 pg 27-31 Mean Corpuscular HGB Conc 33 g/dL 31-36 Red Cell Distribution Width 13 % 10.5-15 Platelet Count 286 10^3/uL 150-450 Mean Platelet Volume 8.3 um3 7.4-10.4 Abs Neutrophils 5.6 10^3/uL 1.5-7.7 Abs Lymphocytes 2.4 10^3/uL 1.0-4.8 Abs Monocytes 0.7 10^3/uL 0-0.8 Abs Eosinophils 0.3 10^3/uL 0-0.6 Abs Basophils 0 10^3/uL 0-0.2 Abs Nucleated RBC 0 10^3/uL Granulocyte % 61.8 % 38-83 Lymphocyte % 27.0 % 25-47 Monocyte % 7.3 % High 0-7 Eosinophil % 3.4 % 0-6 Basophil % 0.5 % 0-2 Nucleated Red Blood Cells % 0 Urine Culture And Sensitivities 07/08/2017 Urine Culture SEE RESULT BELOW 2 Type & Screen 07/08/2017 Patient Blood Type A Positive Antibody Screen NEGATIVE Comp Metabolic Panel 07/08/2017 Sodium 138 mmol/L Low 139-145 Potassium 4.4 mmol/L 3.5-5.0 Chloride 100 mmol/L Low 101-111 Co2 Carbon Dioxide 31 mmol/L 22-32 Anion Gap 7 mmol/L 2-11 Glucose 112 mg/dL High 70-100 Blood Urea Nitrogen 13 mg/dL 6-24 Creatinine 0.76 mg/dL 0.51-0.95 BUN/Creatinine Ratio 17.1 8-20 Calcium 9.6 mg/dL 8.6-10.3 Total Protein 6.8 g/dL 6.4-8.9 Albumin 4.1 g/dL 3.2-5.2 Globulin 2.7 g/dL 2-4 Albumin/Globulin Ratio 1.5 1-3 Total Bilirubin 0.70 mg/dL 0.2-1.0 Alkaline Phosphatase 64 U/L 34-104 Alt 19 U/L 7-52 Ast 12 U/L Low 13-39 Egfr Non- 76.4 >60 Egfr 98.2 >60 3 Comp Metabolic Panel 07/18/2011 Sodium 134 mmol/L Low 135-145 Potassium 4.0 mmol/L 3.5-5.0 Chloride 100 mmol/L Low 101-111 Co2 (Carbon Dioxide) 22.0 mmol/L 22-32 Anion Gap 12.0 mmol/L High 2-11 4 Glucose 222 mg/dL High 70-100 BUN 12 mg/dL 6-24 Creatinine 0.8 mg/dL 0.50-1.40 One Over Creatinine 1.25 BUN/Creatinine Ratio 15.0 8-20 Calcium 9.8 mg/dL 8.1-9.9 Total Protein 6.5 GM/DL 6.2-8.1 Albumin 3.9 GM/DL 3.6-5.4 Globulin 2.6 GM/DL 2-4 Albumin/Globulin Ratio 1.5 1-3 Bilirubin Total 0.7 mg/dL 0.4-1.5 5 Alkaline Phosphatase 85 U/L 30-110 Alt (SGPT) 18 U/L 14-54 Ast (Sgot) 19 U/L 12-42 eGFR Non- 73.4 > 60 eGFR 94.4 > 60 6 Laboratory test finding 07/18/2011 Magnesium 1.9 mg/dL [...] Eosinophils 0.2 0-0.6 Abs Basophils 0.1 0-0.2 CBC Auto Diff 06/13/2011 White Blood Count 8.9 CUMM 4.8-10.8 7 Red Cell Count 4.61 CUMM 4.2-5.4 7 Hemoglobin 13.9 g/dL 12.0-16.0 7 Hematocrit 40 % 35-47 7 Mean Corpuscular Volume 87 um3 79-97 7 Mean Corpuscular Hemoglob 30 pg 27-31 7 Mean Corpuscular HGB Cone 35 g/dL 32-36 7 Redcell Distribution WDTH 13 % 10.5-15 7 Platelet Count 246 CUMM 150-450 7 Mean Platelet Volume 8.8 um3 7.4-10.4 7 Gran % 71.0 % 38-83 7 Lymph % 20.8 % Low 25-47 7 Mononuclear % 5.7 % 1-9 7 Eosinophil % 2.2 % 0-6 7 Basophil % 0.3 % 0-2 7 Abs Lymphs 1.8 1.0-4.8 7 Abs Mononuclear 0.5 0-0.8 7 Absolute Neutrophil Count 6.3 1.5-7.7 7 Abs Eosinophils 0.2 0-0.6 7 Abs Basophils 0 0-0.2 7 Type And Screen (Pre-Adm) 06/13/2011 Patient Blood Type A POSITIVE 7 Antibody Screen NEGATIVE 7 Specimen Discard Date 06/27/11 7, 8 Basic Metabolic Panel 06/13/2011 Sodium 137 mmol/L 135-145 7 Potassium 4.2 mmol/L 3.5-5.0 7 Chloride 103 mmol/L 101-111 7 Co2 (Carbon Dioxide) 25.0 mmol/L 22-32 7 Anion Gap 9.0 mmol/L 2-11 7, 9 Glucose 235 mg/dL High 70-100 7 BUN 8 mg/dL 6-24 7 Creatinine 0.7 mg/dL 0.50-1.40 7 One Over Creatinine 1.42 7 BUN/Creatinine Ratio 11.4 8-20 7 Calcium 8.8 mg/dL 8.1-9.9 7 eGFR Non- 85.6 > 60 7 eGFR 110.1 > 60 7, 10 Urinalysis W/Microscopic 06/13/2011 Ua Color YELLOW Yellow 7 Appearance-Urine CLEAR Clear 7 Specific [place]-Ur 1.021 1.010-1.030 7 Esterase-Urine 1+ Negative 7 Nitrite NEGATIVE Negative 7 [id number] NEGATIVE Negative 7 Protein-Urine NEGATIVE Negative 7 PH-Urine 5.0 5-9 7 Blood-Urine NEGATIVE Negative 7 Ketones-Urine NEGATIVE Negative 7 Bilirubin-Ur NEGATIVE Negative 7 Glucose-Urine NEGATIVE Negative 7 WBC-Urine 3-5 0-5 7 RBC-Urine 0-2 0-2 7 Epith Cells-Ur OCCASIONAL None 7 Bacteria-Urine TRACE None 7 Urine Culture & Sensitivi 06/13/2011 M <SEE NOTE> 1 UNILATERAL PRIMARY OSTEOARTHRITIS, LEFT KNEE 2 SEE RESULT BELOW Name: TAMARAJOSE Darrick : [address]: Zachariah Salcido MD Acct: [id number] Unit: [id number] AGE: 67 Location: [facility] Re07/08/17 SEX: F Status: REG REF SPEC: [id number] SOLIS: 07/08/17-[address] [facility] [address]: Zachariah Salcido MD REQ: [id number] RECD: 05/07/18-1600 STATUS: COMP _ SOURCE: URINE SPDESC: ORDERED: Urine Culture QUERIES: Urine Source: Clean Catch Procedure Result Reported Site Urine Culture Final 07/09/17- 1437 ML No growth of clinically significant organisms * ML - Main Lab . END OF REPORT DEPARTMENT OF PATHOLOGY, [address] [place] [address] William Zayas M.D. Director [facility] # [id number] 3 Because ethnic data is not always readily [...] 15-29 5 Kidney failure <15 (or dialysis) 4 Anion gap measurement may be of limited value in the presence of any alkalosis, especially in a combined acid base disorder. . 5 A metabolite of Naproxen, O-desmethylnaproxen, has been shown to interfere with the Jendrassik-Eugenio method for measuring total bilirubin. Samples from patients who have taken Naproxen have shown spurious elevation in total bilirubin levels. 6 Because ethnic data is not always readily [...] 15-29 5 Kidney failure <15 (or dialysis) 7 AA 06/19/11 8 PREADMISSION TESTING SAMPLES FOR BLOOD BANK WILL [...] WITHIN 3 DAYS OF THE SURGERY DATE. 9 Anion gap measurement may be of limited value in the presence of any alkalosis, especially in a combined acid base disorder. . 10 Because ethnic data is not always readily [...] 15-29 5 Kidney failure <15 (or dialysis) 11 RUN DATE: 06/15/11 [facility] NMI LIVE PAGE 1 RUN TIME: 902 Specimen Inquiry RUN USER: INTERFACE Name: JOSE MCDONALD Darrick Status: REG REF Re06/13/11 Age/Sex: 61/F Unit#: [id number] Location: : 54 SPEC #: [id number] SOLIS: 06/13/11 STATUS: COMP REQ #: [id number] RECD: 06/13/[address] [facility] [address]: Zachariah Salcido MD SOURCE: URINE ENTR: 06/13/11-1011 [facility] DR: Daphnie SWANSON, Danisha Chavira [facility]: ORDERED: URINE C S QUERIES: SPECIMEN DESCRIPTION: URINE, RANDOM ACT WKST: UR 06/15/11 #1 Procedure Result Verified Site > URINE CULTURE SENSITIVI Final 06/15/11- 0903 ML SCANT NORMAL URETHRAL OR PERINEAL DEEPTI ML - [facility] Permit #[id number] [address] [facility] [address] DEPARTMENT OF PATHOLOGY, [facility] DATES [place], [place] [address] [facility] Permit #[id number] William Zayas M.D. Director Daniele Mayes M.D. Brick Dropper Procedures Date CPT Code Description Status 08/27/2017 81415 TKR Total Knee Replacement Completed 08/27/2017 31315 TKR Total Knee Replacement Completed 07/24/2017 96524 ECHO Transthoracic, Real-Time 2D With Doppler And Color Completed Flow 07/24/2017 87340 ECHO Transthoracic, Real-Time 2D With Doppler And Color Completed Flow 07/19/2017 70128 EKG Tracing & Interpretation Completed 04/16/2012 46560 Xray Knee 3 Views Completed 04/16/2012 94530 Rad Exam; Knee, Ap&L Completed 08/01/2011 56139 Xray Knee 3 Views Completed 08/01/2011 60653 Rad Exam; Knee, Ap&L Completed 06/19/2011 29855 TKR Total Knee Replacement Completed 06/19/2011 12824 TKR Total Knee Replacement Completed 04/23/2011 50280 Xray Knee 3 Views Completed 04/23/2011 30368 Rad Exam; Knee, Ap&L Completed 09/18/2010 05919 Rad Exam; Both Knees, Standing Ap Completed 09/18/2010 22506 Rad Exam; Knee, Ap&L Completed Encounters Type Date Location Provider CPT E/M Dx Office Visit 08/28/2017 [facility], JOB Anne 06660 Z47.1 10:17a Hospitalists Z96.652 M17.12 M25.562 E11.9 Office Visit 08/27/2017 10:16a [facility] JOB Navarro 12635 Z47.1 Assoc, Hospitalists Z96.652 M17.12 E11.9 I10 E78.5 Office Visit 07/19/2017 11:45a [facility] ArabellaDanna Pierre, [address] I10 [facility] M.Alejandra E11.9 R94.31 Z01.810 E66.9 E78.4 Office Visit 06/26/2017 10:45a [facility] Salcido M.D. 31561 M17.12 C.M.A. Office Visit 09/07/2016 3:58p [facility], Aneesh Hernandez, 47904 N12 Hospitalists Prem E11.9 R10.9 I10 Office Visit 09/06/2016 3:57p [facility], [place] [address] N12 Hospitalists E11.9 R10.9 I10 Office Visit 08/29/2016 10:00a [facility] Salcido M.D. 15656 M17.12 C.M.A. Office Visit 04/16/2012 9:00a [facility] Salcido M.D. 79735 715.96 C.M.A. Office Visit 01/23/2012 8:00a [facility] Darline Grey 39068 715.96 C.M.A. RPA-C Office Visit 04/23/2011 9:15a [facility] Salcido M.D. 06385 716.96 C.M.A. Office Visit 10/30/2010 8:15a [facility] Salcido M.D. 94906 716.96 C.M.A. Office Visit 09/18/2010 9:30a [facility] Salc[facility] M.D. 96974 716.96 C.MDonna Plan of Care 09/25/2017 - Zachariah Salcido M.D.Z96.652 Presence of left artificial knee jointFollow up:Follow up: 1-3 months Use your ice pad as needed. Use less narcotic at bedtime as soon as able Keep exercising for knee straightening, bending, and strengthening Use the cane as needed, if increasing pains use the walker
--- OUTSIDE RECORDS SUMMARY | 2017-10-03 14:31 | XMS REPORT ---
:1950 External Reference #:[id number] Author Organization [facility] Address [address] [place] [address] Phone [phone] Care Team Providers Name Role Phone Danisha Eller Care Team Information Rehabilitation Coordinator Unavailable Danisha Eller Primary Care Physician Unavailable Payers Type Date Identification Numbers Payment Provider Subscriber Commercial Effective: Policy Number: [id number] Medicare Blue Ppo Jose Cabrera 2017 Group Number: [id number] [address] [address] PayID: [id number] [place] [address] Problems Date Description Provider Status Onset: 01/22/2011 [...] Paternal siblings with Colon CANo fam hx MT.stroke,DM, Lung, Breast CA. Father 82, old age. Pacemaker. Mother 60's MVA. Had been healthy. Number of Children None Number of Siblings 6 siblings. Sister with heart diseaseNo cancer or diabetes2 uncles and an aunt had colon cancer Social History Type Date Description Comments Education Highest level of education completed is 12th grade Marital Status Patient is Living Situation no children. 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 [...] Any Kim 2017 s pressure Johnston, every LAY OUT MAKER morning with feet flat on the floor [...] gm every 4 Jacki, mcg/Act hours as BOX LINER needed Hydrocodone-Acet 01/29/ Active Tablets 7.5-325mg 120ta 1 by mouth M79.605 Danisha L. aminophen 2016 bs four times Daphnie, daily M.DDanna Lorazepam 08/14/ Active Tablets 1mg 30tab take F43.21 Danisha Chavira 2016 s one-half or Daphnie, one tablet M.D. by mouth at at bedtime for sleep. Glipizide 11/04/ Active Tablets 5mg 60tab 2 by mouth Danisha Chavira 2014 s in the Daphnie, morning. M.DDanna Freestyle [...] Chavira Test 2014 daily dx: Daphnie 250.00, M.DDanna last visit 05/10/14 Metformin HCL 05/10/ Active Tablets 1000mg 60tab 1 by mouth Danisha Chavira 2015 s twice a day Prem Eller Pravastatin 12/03/ Active Tablets 10mg 90tab 1 by mouth E11.65 Danisha Chavira Sodium 2014 s at night Prem Eller Centrum Silver / Active Tablets Adult 50 one by Unknown Adult 50+ 0000 mouth daily Garlic Oil / Active Capsules 1000mg One by Unknown 0000 mouth once a day [place] 3 / Active Capsules 1000mg 1 by mouth Unknown 0000 once daily Cholestyramine 04/09/ Hx Powder 4GM/Dose 378gm 2 grams R19.7 Danisha Chavira 2016 - daily in 1 Daphnie, 01/25/ cup of M.D. 2017 water, work up to 4 grams in water/liqui d daily Azithromycin 02/23/ Hx Tablets 250mg 7tabs 2 take by Safia Smith 2015 - mouth Jacki, 04/09/ tabletstoda BOX LINER 2016 y,then one tab days 2-5 until finished [...] Afnp-C 2016 Vitamin D 02/10/ Hx Capsules 47172Yfmv 12cap take 1 Danisha Chavira (Ergocalciferol) 2014 capsule by Daphnie, 08/14/ mouth once M.D. 2016 monthly Mobic 12/13/ Hx Tablets 7.5mg 30tab 1 by mouth M15.0 Danisha Chavira 2014 - every Daphnie, 02/23/ morning. M.D. 2016 Flexeril 09/23/ Hx Tablets 10mg 30tab 1 po tid 728.85 Aileen 2014 prn Aj, 10/03/ Afnp-C 2015 Chantix 12/17/ Hx Tablets 1mg 60tab 1 by mouth 305.1 Danisha Chavira 2013 - s bid. Daphnie, 05/10/ M.D. 2014 Metformin HCL 12/03/ Hx Tablets 500mg 180ta 1 by mouth 250.02 Sarah 2013 - twice Jacki, 05/10/ daily. BOX LINER 2014 Chantix Starting 10/19/ Hx Tablets 0.5mg X 1pack use as 305.1 Mary Hannah Glasgow 2013 & 1 mg directed SEAN House 02/08/ X 42 2013 Clarithromycin 05/04/ Hx Tablets 500mg 20tab 1 po bid x 461.0 Mary 2013 10 days SE[facility] 2013 Januvia 09/19/ Hx Tablets 100mg 30tab take one 250.02 Sarah 2012 tablet by Jacki, 05/10/ mouth one BOX LINER 2015 time daily Chantix Starter 09/19/ Hx 1unit o.5 mg 305.1 Danisha Meeks 2012 daily x 3 Daphnie, 09/19/ days. 0.5 [...] 1 by mouth E11.65 Danisha Chavira 2012 every day Daphnie, 09/12/ M.D. 2017 Waqar Contour 06/03/ Hx Strips 100un test as Danisha Chavira Blood Glucose 2012 - its directed Daphnie, Test Strips 05/28/ twice a day M.D. 2014 Metformin HCL 05/08/ Hx Tablets 1000mg 60tab take one 250.02 Jose 2012 - tablet by Debra, 10/19/ mouth twice BOX LINER 2013 a day Azithromycin 01/10/ Hx Tablets 500mg 5tabs 1 po qd x 461.0 Jose 2011 - 5d Debra, 05/08/ BOX LINER 2012 Azithromycin 12/11/ Hx Tablets 250mg 12tab take 2 461.0 Jose 2011 - s tablets by Debra, 01/10/ mouth x 3d BOX LINER 2011 then take 1 tablet daily for next 6 days Proair HFA 12/11/ Hx Aerosol 108(90Bas 1unit 2 puffs q 461.0 Jose 2011 - e) mcg/ac s 3-4h prn Debra, 05/08/ cough/wheez BOX LINER 2012 e/sob Robitussin A-C 12/11/ Hx 4Oz 1-2 tsp po 461.0 Jose 2011 - q4h prn Debra, 05/08/ cough BOX LINER 2012 Hydrocodone/Acet 10/01/ Hx Tablets 2.5-500mg 30tab 1 po at hs 715.00 Danisha Chavira aminophen 2011 - Daphnie, 12/11/ M.D. 2011 Lorazepam 08/13/ Hx Tablets 1mg 30tab 1 po tid Daphnie, 2011 for leg Danisha Chavira 10/01/ crampinge 2011 Hydrocodone/Acet 08/13/ Hx Tablets 5-500mg 60tab 1 po bid 719.46 Danisha Chavira aminophen 2011 - s Daphnie, 10/11/ M.D. 2011 Warfarin Sodium 07/18/ Hx Tablets 5mg 90tab 2 po qd or Danisha Chavira 2011 s as directed Daphnie, M.D. 2011 Flexeril [...] 30tab 1 po qd Danisha Chavira 2011 s Daphnie, M.D. 2011 Contour Blood 06/03/ [...] Chavira 2011 - bs Daphnie, 05/08/ M.D. 2012 Chantix Starter 03/06/ Hx 1unit o.5 mg 305.1 Danisha Meeks 2011 - s daily x 3 Daphnie, 05/21/ days. 0.5 M.D. 2012 mg bid day 4-7. 1 mg po bid thereafter. Lorazepam / Hx Tablets 1mg 30tab 1 po tid Unknown - s for leg 08/13/ david 2012 Fish Oil / Hx Capsules 1200mg 1 po qd Unknown 0000 - DR 2016 Immunizations CPT Code Status Date Vaccine Lot # [id number] Given 09/19/2012 Pneumococcal Immunization [id number] Given 06/16/2012 Tdap Tetanus, W Pertussis [id number] Vital Signs Date Vital Result Comment 09/18/2017 BP Systolic 140 mmHg BP Diastolic [...] Result H/L Range Note Comprehensive Metabolic Prof 07/10/2017 Sodium 135 mEq/L [...] Color Yellow Urine Appearance Clear Urine Specific [place] 1.017 1.010-1.030 Urine pH 5.0 5-9 Urine [...] Color Yellow Urine Appearance Clear Urine Specific [place] 1.019 1.010-1.030 Urine pH 5.0 5-9 Urine [...] 6.8 x10^3/UL 1.5-7.2 Lymph# 2.3 x10^3/UL 0.7-4.9 Worth# 0.3 x10^3/UL 0.1-0.9 Gran % 71.2 % 42.2-75.2 Lymph % 25.2 % 20.5-51.1 Worth% 3.6 % 1.7-9.3 Lipid Profile 02/10/2015 Cholesterol [...] Pathology SEE RESULT BELOW 26 Ict Hemoccult (a) 11/16/2014 Ict Hemoccult (1) 11/05/14 NEG Ict Hemoccult-(2) 11/06/14 NEG Ict-Hemoccult (3) 11/07/14 NEG Laboratory test 11/15/2014 Stool Occult Blood SEE RESULT BELOW 27 finding Laboratory test 11/04/2014 Hemoglobin A1c 8.1 % High 4.1-5.7 finding (a/[facility] Laboratory test 05/10/2014 Hemoglobin A1c 7.7 % High 4.1-5.7 finding (a/[facility]) Laboratory test 02/08/2014 Hemoglobin A1c 7.8 % High 4.1-5.7 finding ([facility]) Lipid Profile 11/19/2013 Cholesterol 265 mg/dL High 120-200 Triglycerides 182 mg/dL 30-200 HDL Cholesterol 51 mg/dL 30-85 LDL (Calculated) 178 CALC High 0-129 VLDL Cholesterol 36 mg/dL 0-50 HDL Risk Factor 5.2 CALC High 0.0-4.4 Laboratory test 11/19/2013 Hemoglobin A1c 9.5 % High 4.1-5.7 finding ([facility],CX) Microalb/Creatinine, 11/19/2013 Microalb, Random 17.8 mg/L mg/L [...] Yellow 36 Appearance-Urine CLEAR Clear 36 Specific [place]-Ur 1.021 1.010-1.030 36 Esterase-Urine 1+ Negative 36 Nitrite NEGATIVE Negative 36 Nolycfvguruh-Kt-INU NEGATIVE Negative 36 Protein-Urine NEGATIVE Negative 36 [...] VLDL (Calculated) 25 mg/dL 0-50 CBC Electronic ([facility]) 05/24/2011 WBC 8.5 3.6-9.6 RBC 4.33 3.90-5.70 [...] VLDL (Calculated) 37 mg/dL 0-50 CBC Electronic ([facility]) 11/30/2010 WBC 8.0 3.6-9.6 RBC 5.02 3.90-5.70 [...] [address]: Tana Kendall MD Acct: [id number] Unit: [id number] AGE: 67 Location: ED Re04/23/17 SEX: F Status: DEP ER SPEC: [id number] SOLIS: 04/23/17-[address]: Sarah KAISER REQ: [id number] RECD: 04/23/17131 STATUS: PHONG DA SILVA DR: Tana Eller MD _ SOURCE: URINE SPDESC: ORDERED: Urine Culture Procedure Result Reported Site Urine Culture Final 04/24/17- 1209 ML No growth of clinically significant organisms * ML - MAIN LAB ([facility]) . END OF REPORT * ML=Testing performed at Main Lab DEPARTMENT OF PATHOLOGY, [address] [place] [address] William Zayas M.D. Director [facility] # [id number] 2 SEE RESULT BELOW Name: JOSE CABRERA : [address]: Gerardo Lee MD Acct: [id number] Unit: [id number] AGE: 66 Location: ENDO Re11/02/16 SEX: F Status: DEP REF SPEC: [id number] SOLIS: 11/02/16-[address] [facility] [address]: Gerardo Lee MD REQ: [id number] RECD: 11/02/16 STATUS: KENIA DA SILVA DR: [...] performed at Main Lab DEPARTMENT OF PATHOLOGY, [address] [place] [address] William Zayas M.D. Director [facility] # [id number] RUN DATE: 11/06/16 [facility] LAB LIVE PAGE 2 Patient: JOSE CABRERA [id number] (Continued) GROSS DESCRIPTION (Continued) GROSS DESCRIPTION (Continued) fragment, which is entirely submitted in one cassette. Signed (signature on file) Sarah Sotelo MD 07/18 1246 END OF REPORT * ML=Testing performed at Main Lab DEPARTMENT OF PATHOLOGY, [address] [place] [address] William Zayas M.D. Director [facility] # [id number] 3 [facility] Severe Sepsis and Septic Shock Management [...] and in selective patients <6.0%.Please refer to [place] [employer] Diabetic care guidelines for further information. 19 SEE RESULT BELOW Name: JOSE CABRERA : [address]: Aneesh Hernandez MD Acct: [id number] Unit: [id number] AGE: 66 Location: [place] [address]-02 Re09/06/16 SEX: F Status: ADM Arun SPEC: [id number] SOLIS: 09/06/16-[address] [facility] [address]: Sahil Davis MD REQ: [id number] RECD: 09/06/16 STATUS: PHONG DA SILVA DR: Danisha Eller MD _ SOURCE: URINE SPDESC: ORDERED: Urine Culture Procedure Result Reported Site Urine Culture Final 09/07/16- 1230 ML No growth of clinically significant organisms * ML - MAIN LAB ([facility]) . END OF REPORT * ML=Testing performed at Main Lab DEPARTMENT OF PATHOLOGY, [address] [place] [address] William Zayas M.D. Director [facility] # [id number] 20 SEE RESULT BELOW Name: JOSE CABRERA Darrick : [address]: Danisha Eller MD Acct: [id number] Unit: [id number] AGE: 65 Location: [facility] Re04/17/16 SEX: F Status: REG REF SPEC: [id number] SOLIS: 04/17/16-[address]: Danisha Eller MD REQ: [id number] RECD: 04/17/161540 STATUS: COMP _ SOURCE: STOOL SPDESC: ORDERED: Stool Culture, Fecal Lactoferr, O P (Full) COMMENTS: DO O P FULL REGARDLESS Unable to perform Shiga Toxin testing. Specimen collection requirements were not met. Stool for Shiga Toxin testing must be received by the laboratory within 2 hours of collection or placed in [place] transport medium. *please interpret stool culture result [...] ON NEXT PAGE * ML=Testing performed at [facility] Lab DEPARTMENT OF PATHOLOGY, [address] [place] [address] William Zayas M.D. Director [facility] # [id number] Patient: JOSE CABRERA [id number] (Continued) Specimen: [id number] Collected: 04/17/16-1399 Received: 04/17/16-1539 (Continued) Procedure Result [...] not performed * ML - MAIN LAB ([facility]) . END OF REPORT * ML=Testing performed at Main Lab DEPARTMENT OF PATHOLOGY, [address] [place] [address] William Zayas M.D. Director [facility] # [id number] 21 SEE RESULT BELOW Name: JOSE CABRERA : [address]: Danisha Eller MD Acct: [id number] Unit: [id number] AGE: 65 Location: [facility] Re04/10/16 SEX: F Status: REG REF SPEC: [id number] SOLIS: 04/10/16-[address] [facility] [address]: Danisha Eller MD REQ: [id number] RECD: 04/10/163434 STATUS: RES _ SOURCE: STOOL SPDESC: ORDERED: [...] not performed * ML - MAIN LAB ([facility]) . END OF REPORT * ML=Testing performed at Main Lab DEPARTMENT OF PATHOLOGY, [address] [place] [address] William Zayas M.D. Director [facility] # [id number] 22 SOURCE: STOOL PARASITIC EXAMINATION FINAL No parasites seen. Cryptosporidium, Cyclospora, and microsporidia are not readily detected by this method. Single negative specimen does not rule out parasitic infection. Test Performed by: [address] [address] Quarantine Officer: Ger Braxton II, M.D., Ph.D. 23 consistent w/ previous results 24 consistent w/ previous results 25 SEE RESULT BELOW Name: JOSE CABRERA : [address]: Gerardo Lee MD Acct: [id number] Unit: [id number] AGE: 64 Location: ENDO Re11/16/14 SEX: F Status: REG REF SPEC: [id number] SOLIS: 11/16/14-[address]: Gerardo Lee MD REQ: [id number] RECD: 11/16/14 STATUS: PHONG DA SILVA DR: Danisha Eller MD _ SOURCE: GAS ANTRUM SPDESC: ORDERED: Clotest Procedure Result Verified Site Clotest Final 11/17/14- 0752 ML Clotest Negative * ML - MAIN LAB ([facility]) . END OF REPORT * ML=Testing performed at Main Lab DEPARTMENT OF PATHOLOGY, [address] [place] [address] William Zayas M.D. Director [facility] # [id number] 26 SEE RESULT BELOW Name: JOSE CABRERA : [address]: Gerardo Lee MD Acct: [id number] Unit: [id number] AGE: 64 Location: ENDO Re11/16/14 SEX: F Status: REG REF SPEC: [id number] SOLIS: 11/16/14-[address] [facility] [address]: Gerardo Lee MD REQ: [id number] RECD: 11/16/14-3022 STATUS: KENIA DA SILVA DR: Danisha Eller [...] performed at Main Lab DEPARTMENT OF PATHOLOGY, [address] [place] [address] William Zayas M.D. Director [facility] # [id number] 27 SEE RESULT BELOW Name: JOSE CABRERA : [address]: Gerardo Lee MD Acct: [id number] Unit: [id number] AGE: 64 Location: ENDO Re11/16/14 SEX: F Status: REG REF SPEC: [id number] SOLIS: 11/15/14-[address]: Gerardo Lee MD REQ: [id number] RECD: 11/16/14-142 STATUS: COMP REKHA DR: Danisha Eller MD _ SOURCE: STOOL SPDESC: ORDERED: Hemoccult Procedure Result Verified Site Stool Occult Blood Final 11/16/14- 1445 ML Stool Occult Blood Negative * ML - MAIN LAB ([facility]) . END OF REPORT * ML=Testing performed at Main Lab DEPARTMENT OF PATHOLOGY, [address] [place], [place] [id number] William Zayas M.D. Director [facility] # [id number] 28 consistent w/ previous results 29 RUN DATE: 10/28/13 [facility] LAB LIVE PAGE 1 RUN TIME: [address] [place], [place] [address] Specimen Inquiry Name: JOSE CABRERA : [address]: Gerardo Lee MD Acct: [id number] Unit: [id number] AGE: 63 Location: ENDO Re10/27/13 SEX: F Status: REG REF SPEC: [id number] SOLIS: 10/27/13- SUBM DR: Gerardo Lee MD REQ: [id number] RECD: 10/27/131156 STATUS: KENIA DA SILVA DR: Danisha Eller [...] performed at Main Lab DEPARTMENT OF PATHOLOGY, [facility] [employer] [place] [address] William Zayas M.D. Director [facility] # [id number] 30 RUN DATE: 07/16/12 [facility] LAB LIVE PAGE 1 RUN TIME: 1502 [facility] [employer] [place], [place] [address] Specimen Inquiry Name: JOSE CABRERA : [address]: Gerardo Lee MD Acct: [id number] Unit: [id number] AGE: 62 Location: ENDO Re07/15/12 SEX: F Status: REG REF SPEC: [id number] SOLIS: 07/15/12- SUBM DR: Gerardo Lee MD REQ: [id number] RECD: 07/15/12 STATUS: KENIA DA SILVA DR: [...] performed at Main Lab DEPARTMENT OF PATHOLOGY, [facility] [employer] [place], [place] [address] William Zayas M.D. Director [facility] Permit #[id number] RUN DATE: 07/16/12 [facility] LAB LIVE PAGE 2 RUN TIME: 1502 [facility] [employer] [place], [place] [address] Specimen Inquiry Patient: JOSE CABRERA [id number] (Continued) GROSS DESCRIPTION (Continued) GROSS DESCRIPTION (Continued) [...] performed at Main Lab DEPARTMENT OF PATHOLOGY, [address] [place] [address] William Zayas M.D. Director [facility] Permit #[id number] 31 ---- RUN DATE: 10/17/11 [facility] NMI LIVE PAGE 1 RUN TIME: 1455 Specimen Inquiry RUN USER: INTERFACE -- Name: DIONTETIERRAJOSE Status: REG REF Re10/15/11 Age/Sex: 61/F Unit#: [id number] Location: [facility] : [birth year] -- Specimen: [id number] Spec Date:10/15/[address]: Danisha mittal MD Spec Type: SURGICAL P Received:10/16/11-1243 Copies to: SPECIMEN 1) LEFT BACK 2) MID BACK 3) RIGHT BREAST 4) RIGHT AXILLA HISTORY CLINICAL INFORMATION: No history given GROSS DESCRIPTION 1) The specimen is received in formalin labelled Jose Cabrera, and consists of a fragment of white tissue measuring 0.8 x 0.8 x 0.4 cm. Submitted entirely, one cassette labelled 1. 2) The specimen is received in formalin labelled Jose Cabrera, Mid Back, and consists of a fragment of white tissue measuring 0.8 x 0.8 x 0.4 cm. Submitted entirely, one cassette labelled 2. 3) The specimen is received in formalin labelled Jose Cabrera, Right Breast, and consists of a fragment of white tissue measuring 0.5 x 0.5 x 0.4 cm. Submitted entirely, one cassette labelled 3. 4) The specimen is received in formalin labelled Jose Cabrera, Right Axilla, and consists of one fragment [...] MAYES 10/17/11 1455 -- DEPARTMENT OF PATHOLOGY, [address] [place] [address] [facility] Permit #[id number] William Zayas M.D. Director Daniele Mayes M.D. Fiscal Manager Dir tung -- 32 RESULT CARRIE'D 33 Anion gap measurement may be of limited value in the presence of any alkalosis, especially in a combined acid base disorder. . 34 A metabolite of Naproxen, O-desmethylnaproxen, has been shown to interfere with the Jendrassik-Frankfort method for measuring total bilirubin. Samples from [...] <15 (or dialysis) 40 RUN DATE: 06/15/11 [facility] NMI LIVE PAGE 1 RUN TIME: 902 Specimen Inquiry RUN USER: INTERFACE Name: JOSE CABRERA Acceugene#: [id number] Status: REG REF Re06/13/11 Age/Sex: 61/F Unit#: [id number] Location: [place] : [birth year] SPEC #: [id number] SOLIS: 06/13/11 STATUS: PHONG HUNTER #: [id number] RECD: 06/13/[address] [facility] [address]: Omari SWANSON,Zachariah SOURCE: URINE ENTR: 06/13/11-[address]: Daphnie SWANSON, Danisha Chavira [facility]: ORDERED: URINE C S QUERIES: SPECIMEN DESCRIPTION: URINE, RANDOM ACT WKST: UR 06/15/11 #1 Procedure Result Verified Site > URINE CULTURE SENSITIVI Final 06/15/11- 902 ML SCANT NORMAL URETHRAL OR PERINEAL DEEPTI ML - [facility] Permit #[id number] [address] [place] [address] DEPARTMENT OF PATHOLOGY, [address] [place] [address] [facility] Permit #[id number] William Zayas M.D. Director Daniele Mayes M.D. Tanker Driver 41 Anion gap measurement may be of [...] Procedures Date CPT Code Description Status Comment 06/06/2017 50684 Remove Skin Tags Up To 15 Completed 01/09/2017 30005 Finger Or Heel Stick Completed 11/02/2016 Colonoscopy Completed 08/15/2016 Diabetic Retinal Eye Exam Completed Dr Alonzo. No Diabetes retinopathy 11/21/2015 34082 Finger Or Heel Stick Completed 08/15/2015 63645 Finger Or Heel Stick Completed 06/14/2015 62078 Pulse Oximetry Completed 11/04/2014 72007 Finger Or Heel Stick Completed 05/10/2014 13273 Finger Or Heel Stick Completed 02/08/2014 80064 Finger Or Heel Stick Completed 10/27/2013 Colonoscopy Completed 07/15/2012 Colonoscopy Completed 06/20/2012 Mammogram Completed 06/19/2012 48222 Excise Benign Lesion 1.1-2CM Completed Trunk/Arm/Leg 06/19/2012 30190 Biopsy Skin Lesion Single Completed 06/16/2012 Mammogram Completed can't take time off from work. 06/16/2012 54542 Finger Or Heel Stick Completed 05/08/2012 13603 Finger Or Heel Stick Completed 10/12/2011 25984 Shave Skin Lesion <.6CM Completed Trunk/Arm/Leg 10/12/2011 20773 Remove Skin Tags Up To 15 Completed 10/12/2011 35251 Shave Skin Lesion <.6CM Completed Trunk/Arm/Leg 10/02/2011 67958 Finger Or Heel Stick Completed 09/13/2011 44753 Finger Or Heel Stick Completed 08/30/2011 95178 Finger Or Heel Stick Completed 08/22/2011 99371 Finger Or Heel Stick Completed 08/14/2011 77027 Finger Or Heel Stick Completed 08/09/2011 42348 Finger Or Heel Stick Completed 08/01/2011 72830 Finger Or Heel Stick Completed 07/28/2011 38647 Finger Or Heel Stick Completed 07/25/2011 05328 Finger Or Heel Stick Completed 07/23/2011 08294 Finger Or Heel Stick Completed 07/21/2011 26302 Finger Or Heel Stick Completed 05/22/2011 13488 Electrocardiogram Complete Completed 11/30/2010 31532 Electrocardiogram Complete Completed Encounters Type Date Location Provider CPT E/M Dx Office Visit 07/10/2017 1:00p Main Office Danisha Eller M.D. 95324 Z01.818 M17.12 E11.65 I10 Office Visit 06/06/2017 3:20p [facility] Office Danisha Eller M.D. 12580 K21.9 L91.8 S90.852A M25.561 Office Visit 01/25/2017 11:30a Main Office Any Johnston, [address] R04.0 Office Visit 01/09/2017 6:40p Main Office Danisha Eller M.D. 55290 E11.65 Z12.31 Office Visit 09/17/2016 6:15p Main Office Jose Richardson, [facility] 89188 N39.0 Office Visit 04/09/2016 5:40p Main Office Danisha Eller M.D. 31762 E11.65 R19.7 F43.21 Office Visit 02/24/2016 11:30a [facility] Office Sarah Echeverria, [facility] 91896 R05 R19.7 Office Visit 01/30/2016 3:30p Main Office Danisha Eller M.D. 79133 M79.605 E11.65 Office Visit 11/21/2015 7:20p Main Office Danisha Eller M.D. 86058 E11.65 F43.21 M76.32 K58.0 Office Visit 08/15/2015 6:30p Main Office Danisha Eller M.D. 59729 E11.65 F43.21 Office Visit 06/14/2015 7:30p Main Office Amber RuffinOdette 47090 J18.9 Office Visit 02/10/2015 9:40a [facility] Office Danisha Eller M.D. 36632 E11.65 M79.641 M79.642 E55.9 Office Visit 12/13/2014 4:20p Main Office Danisha Eller M.D. 68705 E11.65 M15.0 I10 Office Visit 11/04/2014 9:40a [facility] Office Danisha Eller M.D. 13662 250.02 578.1 Office Visit 09/23/2014 8:30a Main Office Aileen OchoaJordon fisher-Norris 95545 847.1 Office Visit 05/10/2014 9:40a Main Office Danisha Eller M.D. 35517 250.02 381.89 Office Visit 02/08/2014 5:40p Main Office Danisha Eller M.D. 61807 250.00 Office Visit 12/03/2013 11:30a [facility] Office Danisha Eller M.D. 98958 250.02 278.00 305.1 780.52 Office Visit 10/19/2013 6:45p Main Office Mayr House, SEAN 92402 250.02 305.1 782.9 Office Visit 05/04/2013 6:15p Main Office Mary House, LAY OUT MAKER 79731 461.0 466.0 Office Visit 09/19/2012 10:50a [facility] Office Danisha Eller M.D. 96725 250.02 715.00 787.91 305.1 v03.82 Office Visit 07/01/2012 11:20a Main Office aDnisha Eller M.D. 23561 709.2 V58.32 Office Visit 06/19/2012 2:00p [facility] Office Danisha Eller M.D. 99536 709.2 Office Visit 06/16/2012 5:40p Main Office Danisha Eller M.D. 19690 715.00 250.02 701.4 v06.5 Office Visit 05/08/2012 9:30a [facility] Office Jose RichardsonDEREJEP 82501 250.02 250.00 Office Visit 12/12/2011 11:45a Main Office Jose RichardsonDEREJEP 82161 461.0 Office Visit 10/12/2011 2:30p [facility] Office Danisha Eller M.D. 67973 782.9 701.9 216.5 Office Visit 10/02/2011 11:30a Main Office Danisha Eller M.D. 92770 715.00 453.40 250.00 782.9 v58.61 Office Visit 08/14/2011 9:20a Main Office Danisha Eller M.D. 72347 250.00 719.46 453.40 V58.61 Office Visit 07/19/2011 9:00a [facility] Office Danisha Eller M.D. 89562 453.40 728.85 715.00 v58.61 Office Visit 07/16/2011 5:40p Main Office Danisha Eller M.D. 78338 719.46 250.00 401.1 728.85 Office Visit 06/04/2011 6:20p Main Office Danisha Eller M.D. 63971 250.00 Office Visit 05/31/2011 10:00a [facility] Office Danisha Eller M.D. 99103 250.00 Office Visit 05/22/2011 11:00a Main Office Danisha Eller M.D. 92501 715.00 272.2 790.6 V72.83 Office Visit 03/06/2011 9:10a Main Office Danisha Eller M.D. 78357 305.1 Office Visit 11/30/2010 10:20a [facility] Office Danisha Eller M.D. 05835 719.46 V72.83 Plan of Care Future Appointment(s):09/27/2017 9:00 am - Any Johnston NP at Main Bwokht5609/18/2017 - Any Johnston NPE11.65 Type 2 diabetes mellitus with hyperglycemiaComments:Recommend yearly diabetic eye and foot exams, and check on blood pressure periodically. Goal blood sugar is less than 140 in the morning or A1c less than 7.I10 Essential (primary) hypertensionNew Medication: Blood Pressure KitComments:The patient will continue to monitor blood pressure and let me know the blood pressure results if there are readings persistently above 140/80. Goal blood pressure is less than 140/80. Recommend low salt/ cardiac diet and routine exercise. continue 150mg irbesartan, get new BP cuff , monitor BP dailyand when symtommatic return in 1 week for [place] BP check, to compare your cuff with ours.AllComments:~B_~U_Medication Management~b_~u_ Patient Understands medications she's taking? Yes [...]
[2017-10-03 15:14] LABS: ABS Basophils 0.1 10^3/ul (0-0.2); ABS Eosinophils 0.3 10^3/ul (0-0.6); ABS Lymphocytes 2.4 10^3/ul (1.0-4.8); ABS Monocytes 0.7 10^3/ul (0-0.8); ABS Neutrophils 6.7 10^3/ul (1.5-7.7); ABS Nucleated RBC 0 10^3/ul; Eosinophil % 2.5 % (0-6); Hematocrit 35 % (35-47); Hemoglobin 11.7 g/dl (12.0-16.0); Mean Corpuscular HGB Conc 33 g/dl (31-36); Mean Corpuscular Hemoglobin 28 pg (27-31); Mean Corpuscular Volume 84 fL (80-97); Mean Platelet Volume 7.8 um3 (7.4-10.4); Nucleated Red Blood Cells % 0; Platelet Count 302 10^3/ul (150-450); Red Blood Count 4.17 10^6/ul (4.00-5.40); Red Cell Distribution Width 13 % (10.5-15); White Blood Count 10.2 10^3/ul (3.5-10.8)
--- NOTE | 2017-10-03 15:23 | ED ---
Palpitations / Dysrhythmia - HPI Summary HPI Summary: This is vesta Nuñez documenting for attending Sahil Davis MD. This patient is a 67 year old F BIBA to [facility] with a chief complaint of SOB and palpations since noon. The patient rates the pain 6/10 in severity. Patient reports sweats, shaking, high BP, CP (when breathing heavily), abdominal pain ( cramps in her upper abd area), and nausea. Patient denies vomiting, and diarrhea. She has had episodes similar to this since her knee surgery on 2017, but they usually resolved spontaneously. This episode did not. - History of Current Complaint Chief Complaint: EDDysrhythmPalp Time Seen by Provider: 10/03/17 14:43 Hx Obtained From: Patient Onset/Duration: Sudden Onset, Lasting Hours - since noon Severity Initially: Moderate Severity Currently: Moderate Associated Signs & Symptoms: Chest Pain - When breathing heavily, Shortness of Breath, Diaphoresis, Nausea - Allergy/Home Medications Allergies/Adverse Reactions: Allergies Allergy/AdvReac Type Severity Reaction Status Date / Time morphine Allergy Nausea And Verified 08/27/17 06:29 Vomiting Penicillins Allergy See Comment Verified 08/27/17 06:29 aspirin AdvReac GI BLEED Verified 08/27/17 06:29 Home Medications: Home Medications Garlic [Garlic Oil] 1,000 mg PO DAILY 10/03/17 [History Confirmed 10/03/17] Irbesartan (NF) [Avapro (NF)] 150 mg PO DAILY 10/03/17 [History Confirmed ] LORazepam TAB(*) [Ativan 1 MG TAB (*)] 0.5 - 1 mg PO BEDTIME PRN 10/03/17 [ History Confirmed 10/03/17] Multivit-Min/FA/Lycopen/Lutein [Centravites 50 Plus Tablet] 1 tab PO DAILY 10/03 [History Confirmed 10/03/17] [place]-3 Fatty Acids (Nf) [Fish Oil (NF)] 1,000 mg PO DAILY 10/03/17 [History Confirmed 10/03/17] Omeprazole CAP* [Prilosec CAP* 20 MG] 20 mg PO DAILY 10/03/17 [History Confirmed 10/03/17] Pravastatin (NF) [Pravachol (NF)] 10 mg PO QPM 10/03/17 [History Confirmed 10/03] Ranitidine TAB (NF) [Zantac TAB (NF)] 300 mg PO BEDTIME 10/03/17 [History Confirmed 10/03/17] oxyCODONE/Acetamin 5/325 MG* [Percocet 5/325 TAB*] 1 tab PO Q4H PRN MDD 10 10/03 [History Confirmed 10/03/17] PMH/Surg Hx/FS Hx/Imm Hx Endocrine/Hematology History: Reports: Hx Diabetes - DM II Denies: Hx Thyroid Disease Cardiovascular History: Reports: Hx Hypercholesterolemia, Hx Hypertension - CONTROLLED Denies: Hx Congestive Heart Failure Respiratory History: Denies: Hx Asthma, Hx Chronic Obstructive Pulmonary Disease (COPD) GI History: Reports: Hx Gastroesophageal Reflux Disease - ON MEDICATION FOR, Hx Irritable Bowel Denies: Hx Ulcer History: Reports: Hx Kidney Infection - HX OF, Hx Kidney Stones - HX OF IN THE PAST Musculoskeletal History: Reports: Hx Arthritis - KNEES, HANDS Sensory History: Reports: Hx Contacts or Glasses - for reading Denies: Hx Hearing Aid, Other Sensory Impairments Opthamlomology History: Reports: Hx Contacts or Glasses - for reading Denies: Other Sensory Impairments - Surgical History Surgery Procedure, Year, and Place: choley, knee Hx Anesthesia Reactions: Yes - A LITTLE SLOW TO WAKE UP Infectious Disease History: No Infectious Disease History: Denies: Hx Clostridium Difficile, Hx Hepatitis, Hx Human Immunodeficiency Virus (HIV), Traveled Outside the in Last 30 Days - Family History Known Family History: Positive: Hypertension, Diabetes - Social History 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 Negative: Fever, Chills Negative: Erythema Negative: Sore Throat Positive: Palpitations, Chest Pain - when breathing heavily, Other - HTN Positive: Shortness Of Breath. Negative: Cough Positive: Abdominal Pain - cramps in her upper abd area, Nausea. Negative: Vomiting, Diarrhea Negative: dysuria, hematuria Negative: Myalgia, Edema Negative: Rash Neurological: Other - Denies dizziness Psychological: Other All Other Systems Reviewed And Are Negative: Yes Physical Exam - Summary Physical Exam Summary: Constitutional: Well-developed, Well-nourished, Alert. (-) Distressed Skin: Warm, Dry HENT: Normocephalic; Atraumatic Eyes: Conjunctiva normal Neck: Musculoskeletal ROM normal neck. (-) JVD, (-) Stridor, (-) Tracheal deviation Cardio: Rhythm regular, rate normal, Heart sounds normal; Intact distal pulses; The pedal pulses are 2+ and symmetric. Radial pulses are 2+ and symmetric. (-) Murmur Pulmonary/Chest wall: Effort normal. (-) Respiratory distress, (-) Wheezes, (-) Rales Abd: Soft, (-), epigastric tenderness, (-) Distension, (-) Guarding, (-) Rebound Musculoskeletal: (-) Edema, (+) surgical incision well healing over L knee. Lymph: (-) Cervical adenopathy Neuro: Alert, Oriented x3. Patient became dizzy when she sat up. She had to sit back down during the exam. Psych: Mood and affect Normal Triage Information Reviewed: Yes Vital Signs On Initial Exam: Initial Vitals Temp Pulse Resp BP Pulse Ox 99.3 F 103 24 154/84 98 10/03/17 14:11 10/03/17 14:11 10/03/17 14:11 10/03/17 14:11 10/03/17 14:11 Vital Signs Reviewed: Yes Diagnostics - Vital Signs Vital Signs Temp Pulse Resp BP Pulse Ox 10/03/17 14:11 99.3 F 103 24 154/84 98 - Laboratory Lab Results: Lab Results 10/03/17 Range/Units 15:05 WBC 10.2 (3.5-10.8) 10^3/ul RBC 4.17 (4.00-5.40) 10^6/ul Hgb 11.7 L (12.0-16.0) g/dl Hct 35 (35-47) % MCV 84 (80-97) fL MCH 28 (27-31) pg MCHC 33 (31-36) g/dl RDW 13 (10.5-15) % Plt Count 302 (150-450) 10^3/ul MPV 7.8 (7.4-10.4) um3 Neut % (Auto) 66.2 (38-83) % Lymph % (Auto) 24.0 L (25-47) % [place] % (Auto) 6.7 (0-7) % Eos % (Auto) 2.5 (0-6) % Baso % (Auto) 0.6 (0-2) % Absolute Neuts (auto) 6.7 (1.5-7.7) 10^3/ul Absolute Lymphs (auto) 2.4 (1.0-4.8) 10^3/ul Absolute Monos (auto) 0.7 (0-0.8) 10^3/ul Absolute Eos (auto) 0.3 (0-0.6) 10^3/ul Absolute Basos (auto) 0.1 (0-0.2) 10^3/ul Absolute Nucleated RBC 0 10^3/ul Nucleated RBC % 0 Result Diagrams: 10/03/17 15:05 10/03/17 15:05 Lab Statement: Any lab studies that have been ordered have been reviewed, and results considered in the medical decision making process. - Radiology Chest X-Ray Radiology Interpretation Completed By: Radiologist - NO EVIDENCE FOR ACUTE DISEASE. Physician has reviewed this report. - CT Chest CTA CT Interpretation Completed By: Radiologist - No evidence of pulmonary embolus is noted. Physician has reviewed this report. - EKG No standard instances Cardiac Rate: NL - 96 BPM EKG Rhythm: Sinus Rhythm EKG Interpretation: no STEMI Re-Evaluation - Re-Evaluation 1 Re-Evaluation Time: 16:50 Change: Unchanged Comment: Patient is still dizzy Course/Dx - Diagnoses Provider Diagnoses: Dyspnea - Physician Notifications Discussed Care Of Patient With: Sharon Carranza - Hospitalist Time Discussed With Above Provider: 16:56 Instructed by Provider To: Admit As Inpatient Discharge - Sign-Out/Discharge Documenting (check all that apply): Patient Departure - Admit - Discharge Plan Condition: Stable Disposition: ADMITTED TO [facility] - Billing Disposition and Condition Condition: STABLE Disposition: Admitted to [facility]
[2017-10-03 15:45] LABS: EGFR Non-African American 76.4 (>60)
[2017-10-03] MEDS ORDERED: Iodixanol* (CONTRAST) 320 MG/ML 100 ML SDV IV ONE (15:49)
--- NOTE | 2017-10-03 15:54 | RAD ---
INDICATION: Chest pain. COMPARISON: Comparison is made with a prior chest x-ray study from September 06, 2016. TECHNIQUE: A portable view of the chest was obtained. FINDINGS: Cardiac and mediastinal contours appear to be within normal limits. The lungs are clear. No pleural effusion is seen. IMPRESSION: NO EVIDENCE FOR ACUTE DISEASE.
--- NOTE | 2017-10-03 16:31 | RAD ---
Indication: Chest pain, shortness of breath. Contrast: Administered 94.2 ml of VISAPAQUE 320 mg/ml CTA of the chest performed after IV contrast administration. Coronal and sagittal reconstructed images were obtained. The pulmonary arterial tree is well opacified. There are no filling defects present to suggest pulmonary embolus. There is no evidence of mediastinal or hilar adenopathy noted. The heart is of normal size without evidence of pericardial effusion. The trachea and major bronchi appear patent. Lung armstrong demonstrate no evidence of pleural fluid, nodules or masses. The aorta demonstrates no evidence of thoracic aortic dissection or aneurysmal dilatation. The visualized abdominal organs are unremarkable. IMPRESSION: No evidence of pulmonary embolus is noted. No evidence of thoracic aortic dissection is noted.
[2017-10-03] MEDS ORDERED: Aspirin 81 mg CHEW TAB* 81 MG TAB.CHEW PO ONE (16:49)
[2017-10-03] MEDS ORDERED: Acetaminophen TAB* 325 MG PO PRN (17:13)
[2017-10-03] MEDS ORDERED: Al Hydrox/Mg Hydrox/Simet LIQ* 30 ML UDC PO PRN (17:13)
[2017-10-03] MEDS ORDERED: LORazepam TAB(*) 1 MG PO PRN (17:42)
[2017-10-03] MEDS ORDERED: Dextrose 50% Syringe 50 ML* 25 GM/50 ML SYRINGE IV PUSH PRN (17:47)
[2017-10-03] MEDS ORDERED: CMC: Pravastatin (NF) 20 MG TAB PO SCH (18:00)
[2017-10-03] MEDS ORDERED: Enoxaparin(*) 40 MG/0.4 ML SYR SUBCUT SCH (18:30)
--- NOTE | 2017-10-03 19:01 | RAD ---
Indication: Left knee prosthesis, infection. 2 views of left knee demonstrates bipolar left knee replacement. No loosening is noted. No evidence of periprosthetic lucency is noted. When compared to previous exam of August 27, 2017 no significant change is noted in alignment of bone density. IMPRESSION: No definite evidence of periprosthetic lucency is noted. Knee replacement in satisfactory position.
--- NOTE | 2017-10-03 20:08 | HP ---
HISTORY AND PHYSICAL: DATE OF ADMISSION: 10/03/17 TIME OF ADMISSION: 5:45 p.m. PRIMARY CARE PHYSICIAN: Dr. Eller. CHIEF COMPLAINT: "Some kind of a spell." HISTORY OF PRESENT ILLNESS: This is a 67-year-old female with history of type 2 diabetes, hypertension, and a recent left knee replacement, who presents to the emergency department with an episode that occurred at rest today that she describes as sweatiness and "feeling my heart race." Other associated symptoms included shortness of breath and dizziness and on further questioning, she does admit to some chest pressure at that time. She says that these spells have been occurring every day or every other day since August when she had her total knee arthroplasty. They typically last approximately 20 minutes and today it was not going away, so she called her doctor, who recommended calling EMS. At this time, in the emergency department, she felt back to normal and she has no complaints. Her sister and her nephew are in the room with her and they have been present during one of these spells and they report that as a witness, she appeared just sweaty. She denies any recent illness. She has not had any fevers, headache, cough, cold, diarrhea, abdominal pain, hematochezia. She has never taken her blood sugar during any of these episodes nor her blood pressure. She has been taking her medications as prescribed and only takes pain medication at night if needed. She does note that her left knee feels very hot and when her sister brought in a warm blanket today, she screamed when it touched her left knee. PAST MEDICAL HISTORY: Type 2 diabetes, hypertension, hyperlipidemia, obesity, GERD, osteoarthritis. PAST SURGICAL HISTORY: Right knee total arthroplasty, left knee total arthroplasty, and cholecystectomy. SOCIAL HISTORY: She lives with her nephew. She quit smoking 4 years ago. She denies alcohol or illicit drug use. PHYSICAL EXAMINATION GENERAL: Alert, obese female, in no distress. VITAL SIGNS: Temperature 98.4, heart rate 101, respiratory rate 17, pulse ox 99 % on room air, blood pressure 156/74. HEENT: Pupils are 3 mm bilaterally and reactive to light. She has no nystagmus. Oral mucosa is moist. No pharyngeal exudates or erythema. NECK: No JVD. No cervical or supraclavicular lymphadenopathy. LUNGS: Clear bilaterally. CHEST: Regular rate and rhythm. No murmurs. PMI is nondisplaced. ABDOMEN: Obese, soft, nontender, nondistended. Anderson's sign is negative. She does have some right CVA tenderness. EXTREMITIES: No edema. The left TKA incision is well healed and approximated without drainage, though it is slightly warm compared to the right knee. Her distal pulses are 2+. She has no ulcers on her feet. NEUROLOGIC: Strength is 5/5 in all extremities. Her range of motion is good including in her knees. She follows all commands appropriately and her coordination is intact. DIAGNOSTIC STUDIES/LAB DATA: hemoglobin 11.7, platelets 302. Sodium 137, potassium 4.1, chloride 100, bicarb 23, anion gap 14, BUN 14, creatinine 0.76, glucose 145, lactic acid 4.2. Troponin 0.05. CTA: No evidence of PE noted. No evidence of thoracic aortic dissection noted. Chest x-ray: No evidence for acute disease. EKG: Normal sinus rhythm, normal axis, normal intervals. No chamber hypertrophy. No Q waves. No ST or T-wave changes. ASSESSMENT AND PLAN: This is a 67-year-old female with history of diabetes, hypertension, and a recent left knee replacement, who presents today with 1 month of "spells" that include palpitations, shortness of breath, diaphoresis, chest pressure, and dizziness. She presented to the emergency department today because this episode was not resolving on its own and she is found to have an elevated lactic acid and elevated troponin. 1. "Spells." The differential for these episodes is broad and at this time includes angina, anxiety, hypoglycemia, hypotension, infection. I am going to start by adding on ESR and CRP to her labs, checking blood cultures, checking an A1c, checking an x-ray of her left knee, checking orthostatic vital signs, trending her troponins, monitoring her on telemetry, adding on a BNP, and repeating a lactic acid. Her episodes typically occur at rest, so it is not usual for angina; however, it is possible that she would have an atypical presentation, still her EKG does not suggest acute coronary syndrome. 2. Lactic acidosis. She has no abdominal pain, no hematochezia; however, I am concerned about infection, so I am checking blood cultures as above and a UA. This also may be a reflection of her metformin; however, this would be rare with normal renal function. 3. Gastroesophageal reflux disease. Continue omeprazole and ranitidine. 4. Hypertension. Continue irbesartan. However, she notes that her irbesartan was doubled 2 weeks ago and it is possible this is contributing to her symptoms as she is having periods of hypotension. We will monitor her blood pressure on this new regimen. 5. DVT prophylaxis. Lovenox subcutaneous. 6. Disposition. Admit to observation status with a normal diet. [id number]/[facility] #: [id number] ADRIENNE
[2017-10-03] MEDS: Insulin LISPRO* 1 UNITS UNIT SUBCUT SCH (22:08)
[2017-10-04 01:13] LABS: Urine Appearance Clear; Urine Blood Negative (Negative); Urine Color Yellow; Urine Ketones Negative (Negative); Urine Protein Negative (Negative); Urine Red Blood Cell Absent (Absent); Urine Specific Gravity 1.033 (1.010-1.030); Urine Urobilinogen Negative (Negative); Urine White Blood Cell 3+(>20/hpf) (Absent)
[2017-10-04] MEDS: oxyCODONE/Acetamin 5/325 MG* TAB PO PRN ×2 (02:01→13:05)
[2017-10-04] MEDS ORDERED: oxyCODONE TAB* 5 MG TAB PO ONE (03:12)
[2017-10-04] MEDS ORDERED: cefTRIAXone(*) 1 GM in NS 0.9% 50 ML* 50 ML IVPB SCH (06:30)
[2017-10-04] MEDS ORDERED: Omeprazole CAP* 20 MG PO SCH (07:30)
[2017-10-04] MEDS ORDERED: Losartan TAB* 25 MG PO SCH (09:00)
[2017-10-04] MEDS: Insulin LISPRO* 1 UNITS UNIT SUBCUT SCH ×2 (09:02→13:05)
--- NOTE | 2017-10-04 09:16 | RAD ---
HISTORY: dvt, status post knee replacement COMPARISONS: None relevant TECHNIQUE: Multiple transverse and longitudinal ultrasound images were obtained of the left lower extremity from the level of the common femoral vein inferiorly through to the infrapopliteal veins using grayscale, color Doppler, and spectral Doppler imaging with and without compression and with augmentation. Comparison images were obtained of the contralateral common femoral vein. FINDINGS: VEINS: The venous system of the left lower extremity is compressible throughout its course, with normal flow on color Doppler imaging and normal response to augmentation on spectral Doppler imaging. SOFT TISSUES: Unremarkable. OTHER FINDINGS: None. IMPRESSION: NO LEFT LOWER EXTREMITY DEEP VEIN THROMBOSIS
[2017-10-04] MEDS ORDERED: Aminophylline IV* 25 MG/ML 10 ML VIAL ONE (10:08)
[2017-10-04] MEDS ORDERED: Regadenoson* 0.4 MG/5 ML SYRINGE ONE (10:08)
--- NOTE | 2017-10-04 12:18 | RAD ---
HISTORY: "spells" of sob and palpitations COMPARISONS: None TECHNIQUE: A 1 day stress/rest myocardial perfusion study was performed, with pharmacologic stress. The stress portion was monitored by Dr. Pierre. Gated SPECT imaging was performed, without CT-based attenuation correction secondary to body habitus DOSE: Stress: Technetium 99m tetrofosmin, 25.3 millicuries, injected at 10:43 AM on October 04, 2017 Rest: Technetium 99m tetrofosmin, 10.7 millicuries, injected at 8:10 AM on October 04, 2017 Pharmacologic agent: Lexiscan FINDINGS: CARDIAC MONITORING: EKG criteria of ischemia with stress EF: 65% TID: 1.19 MOTION: Normal motion, with normal wall thickening. PERFUSION: There are no fixed or reversible perfusion defects. OTHER: None IMPRESSION: NO FIXED OR REVERSIBLE PERFUSION DEFECTS. ASSESSMENT: LOW RISK. Based on imaging criteria from ACC/AHA 2002. Guideline Update for the Management of Patient's with Chronic Stable Angina, table 23. Noninvasive Risk Stratification.
--- NOTE | 2017-10-04 13:58 | RAD ---
HISTORY: episodic numbness COMPARISONS: None TECHNIQUE: Multiple contiguous axial CT scans were obtained of the head without intravenous contrast. FINDINGS: HEMORRHAGE/INFARCT: There is no hemorrhage or acute infarct. MASSES/SHIFT: There is no mass or shift. EXTRA-AXIAL SPACES: There are no extra-axial fluid collections. SULCI AND VENTRICLES: The sulci and ventricles are normal in size and position for the patient's stated age. CEREBRUM: There are no focal parenchymal abnormalities. BRAINSTEM: There are no focal parenchymal abnormalities. CEREBELLUM: There are no focal parenchymal abnormalities. VESSELS: There is calcification of the cavernous segments of the internal carotid arteries bilaterally. PARANASAL SINUSES: The paranasal sinuses are clear. ORBITS: The orbits are unremarkable. BONES AND SOFT TISSUE: No bone or soft tissue abnormalities are noted. OTHER: None IMPRESSION: NO ACUTE INTRACRANIAL PATHOLOGY.
--- NOTE | 2017-10-04 15:59 | RAD ---
INDICATION: Episodic numbness. COMPARISON: There are no prior studies available for comparison. TECHNIQUE: Multiple grayscale, color and Doppler tracings of the common, internal and external carotid and vertebral arteries were obtained. Stenosis estimations reflect velocity criteria that it been correlated to angiographic stenosis calculations based on the distal internal carotid diameter. RIGHT CAROTID: There is mild plaque within the right carotid bulb and proximal internal carotid artery.. The peak systolic velocity in the proximal right internal carotid artery is 85 cm/s and the maximum end-diastolic velocity is 28 cm/s. The peak systolic velocity in the distal right common carotid artery is 101 cm/s and the maximum end-diastolic velocity is 34 cm/s. The internal to common carotid artery ratio is 0.9. This would be consistent with a less than 50% stenosis. LEFT CAROTID: There is mild hyperechoic plaque within the left carotid bulb and proximal internal carotid artery. The peak systolic velocity in the proximal left internal carotid artery is 78 cm/s and the maximum end-diastolic velocity is 24 cm/s. The peak systolic velocity in the distal left common carotid artery is 83 cm/s and the maximum end-diastolic velocity is 24 cm/s. The internal to common carotid artery ratio is 0.9. This would be consistent with a less than 50% stenosis. VERTEBRALS: There is antegrade flow in both vertebral arteries. IMPRESSION: THERE IS MILD PLAQUE PRESENT BILATERALLY WITHIN THE PROXIMAL INTERNAL CAROTID ARTERIES. NO HEMODYNAMICALLY SIGNIFICANT STENOSIS IS SEEN. CPT II Codes: 3100F
[2017-10-04 16:01] VITALS: BP 138/54
--- NOTE | 2017-10-05 02:22 | DS ---
CC: Dr. Danisha Eller * DISCHARGE SUMMARY: DATE OF ADMISSION: 10/03/17 DATE OF DISCHARGE: 10/04/17 PRINCIPAL DISCHARGE DIAGNOSES: 1. Panic disorder. 2. Uncomplicated cystitis. 3. Lactic acidosis. SECONDARY DISCHARGE DIAGNOSES: 1. Osteoarthritis status post recent left total knee arthroplasty. 2. Type 2 diabetes. 3. Hypertension. 4. Hyperlipidemia. 5. Obesity. 6. Gastroesophageal reflux disease. PHYSICAL EXAMINATION: At the time of discharge, temperature 98.0, heart rate 86 , respiratory rate 16, pulse ox 100% on room air, blood pressure 138/74. General: Alert, obese female, in no distress. HEENT: Pupils are equal, round, and reactive to light. No nystagmus is noted. Oral mucosa is moist. No pharyngeal exudates are noted. Neck: No JVP. No cervical or supraclavicular lymphadenopathy. Chest: Regular rate and rhythm. No murmurs. PMI nondisplaced. Lungs: Clear bilaterally. Abdomen: Obese, soft, nontender, nondistended. No guarding, rebound, or rigidity. Slight right CVA tenderness is noted. Extremities: No edema. No erythema or ulcers. Left knee incision is well healed and she has active and passive range of motion. Distal pulses are 2+ bilaterally. HOSPITAL COURSE BY PROBLEM: 1. Panic attack. Ms. Cabrera presented to the emergency department with approximately 1 month of almost daily episodes of palpitations, diaphoresis, shortness of breath, and tingling. Her neurologic and cardiac exams were unremarkable and further workup was pursued to rule out an organic neurological , cardiac event. While her troponin was very mildly elevated at 0.05, acute coronary syndrome was ruled out with a normal EKG and a negative stress test. In addition, a CT head was unremarkable. Carotid ultrasound is pending at the time of discharge. While an uncomplicated UTI was found, no evidence of systemic infection was noted. Inflammatory markers were unremarkable and a knee x-ray was unremarkable as well as a CT angio, which was negative and a lower extremity Doppler, which was also negative. Further questioning and discussion with Ms. Cabrera revealed social stressors in her life, though she is not convinced that what she is experiencing are panic attacks. I agree with her that further workup can be pursued as an outpatient with her primary care physician; however, I counseled her on the nature of panic attacks, mental illness and our ability to treat them effectively. She and her sister agreed and also said that there is a strong family history of anxiety and panic. She does have Ativan at home that she uses p.r.n. sleep at night and she agrees to try a 0.5 mg of Ativan next time she experiences 1 of these attacks. 2. Lactic acidosis. Her lactate level was elevated at 4.2 on admission and her anion gap was 14, which coincides with elevated lactate. She had no other events of septic shock. Therefore, I recommended discontinuing her metformin and continuing the glipizide only especially since her A1c is well controlled at 7.1. 3. Recent left knee TKA. She reported some concern about infection due to warmth at the site; however, she had excellent range of motion and her inflammatory markers were unremarkable. In addition, a knee x-ray showed no evidence of periprosthetic lucency. 4. GERD. She was continued on omeprazole and ranitidine. 5. Hypertension. She was continued on irbesartan. It was noted that her irbesartan dose was recently doubled, so there was some concern for hypotension causing her symptoms at admission; however, she was normotensive throughout this admission and her orthostatic vital signs were negative. 6. Disposition. Ms. Cabrera is being discharged to home on 10/04/17 with her sister who I have reviewed all the findings of the test list. She is instructed to come back to emergency department should she experience any further chest pain, shortness of breath, palpitations, faintness, or other unusual symptoms. TIME SPENT: An hour was spent discharging Ms. Cabrera and over half of that time was spent [id number] with her and her family. [id number]/[facility] #: [id number] [facility] CENTERLauren
== END 2017-10-04 17:10 | disposition home or self-care (01) ==
LOC: ED 14:04 → MEDTELE 17:30
PROVIDERS: ADMIT Internal Medicine; ATTEND Internal Medicine
DX: F41.0 Panic disorder [episodic paroxysmal anxiety] (principal); N30.90 Cystitis, unspecified without hematuria; E87.2 Acidosis; M17.12 Unilateral primary osteoarthritis, left knee; E78.5 Hyperlipidemia, unspecified; E66.9 Obesity, unspecified; K21.9 Gastro-esophageal reflux disease without esophagitis; R06.02 Shortness of breath; R00.2 Palpitations; R07.9 Chest pain, unspecified; Z88.0 Allergy status to penicillin; E11.9 Type 2 diabetes mellitus without complications; I10 Essential (primary) hypertension; Z87.442 Personal history of urinary calculi; Z87.891 Personal history of nicotine dependence
CPT/HCPCS: 36415; 70450; 71045; 71275; 78452; 80053; 81003; 81015; 83036; 83605; 83880; 84443; 84484; 85025; 85652; 86140; 87040; 87077; 87086; 87186; 93005; 93017; 93880; 99283; A9270-GY; A9502; G0378; J0280; J0696; J1650; J2785; Q9967

== ENCOUNTER → 2017-12-12 12:05 | Emergency (ER) | payer MEDICARE ==
[~2017-12-12 12:05] MED LIST: HYDROcodone/ACETAMIN 5-325 MG* 1 TAB PO ONE; oxyCODONE/Acetamin 5/325 MG* TAB PO ONE
--- NOTE | 2017-12-12 12:31 | ED ---
Adult Trauma - HPI Summary HPI Summary: This patient is a 67 year old F presenting [place] [facility] [place] by her neighbor with a chief complaint of fall and associated injuries since [employer]. Pt was clearing the floor to vacuum and tripped, landing on her left side, injuring her left wrist/forearm with DROM secondary to pain, as well as her injuring her left leg with associated ecchymosis and abrasions. SHx left knee replacement 2017. Pt able to ambulate with a cane, bear weight, bend at knee. She denies hitting her head or neck. - History of Current Complaint Chief Complaint: EDExtremityUpper Stated Complaint: LT WRIST INJURY Time Seen by Provider: 12/12/17 12:14 Hx Obtained From: Patient Hx Last Menstrual Period: n/a Mechanism of Injury: Fall Ambulatory at the Scene: Yes Loss of Consciousness: no loss of consciousness Onset/Duration: Started Hours Ago Onset of Pain: Immediate Onset Severity: Severe Current Severity: Severe Pain Intensity: 10 Pain Scale Used: 0-10 Numeric Location: Extremities - LLE, LUE Character: Sharp Aggravating Factor(s): Movement Alleviating Factor(s): Nothing Associated Signs & Symptoms: Positive: Ecchymosis. Negative: Fever - Additional Pertinent History Primary Care Physician: [id number] - Allergy/Home Medications Allergies/Adverse Reactions: Allergies Allergy/AdvReac Type Severity Reaction Status Date / Time morphine Allergy Nausea And Verified 12/12/17 12:12 Vomiting Penicillins Allergy See Comment Verified 12/12/17 12:12 aspirin AdvReac GI BLEED Verified 12/12/17 12:12 PMH/Surg Hx/FS Hx/Imm Hx Endocrine/Hematology History: Reports: Hx Diabetes - DM II Denies: Hx Thyroid Disease Cardiovascular History: Reports: Hx Angina, Hx Hypercholesterolemia, Hx Hypertension - CONTROLLED Denies: Hx Congestive Heart Failure, Hx Coronary Artery Disease, Hx Myocardial Infarction, Hx Valvular Heart Disease Respiratory History: Denies: Hx Asthma, Hx Chronic Obstructive Pulmonary Disease (COPD) GI History: Reports: Hx Gastroesophageal Reflux Disease - ON MEDICATION FOR, Hx Irritable Bowel Denies: Hx Ulcer History: Reports: Hx Kidney Infection - HX OF, Hx Kidney Stones - HX OF IN THE PAST Musculoskeletal History: Reports: Hx Arthritis - KNEES, HANDS Sensory History: Reports: Hx Contacts or Glasses - for reading Denies: Hx Hearing Aid, Other Sensory Impairments Opthamlomology History: Reports: Hx Contacts or Glasses - for reading Denies: Other Sensory Impairments - Surgical History Surgery Procedure, Year, and Place: choley, knee Hx Anesthesia Reactions: Yes - A LITTLE SLOW TO WAKE UP Infectious Disease History: No Infectious Disease History: Denies: Hx Clostridium Difficile, Hx Hepatitis, Hx Human Immunodeficiency Virus (HIV), Hx of Known/Suspected MRSA, Hx Shingles, Hx Tuberculosis, Traveled Outside the [place] in Last 30 Days - Family History Known Family History: Positive: Hypertension, Diabetes - Social History Lives: Alone Alcohol Use: Occasionally Alcohol Amount: 2 GLASSES OF WINE ON SUNDAYS Substance Use Type: Reports: None Substance Use Comment - Amount & Last Used: 3 CUPS OF COFFEE DAILY Hx Tobacco Use: Yes Smoking Status (MU): Former Smoker Amount Used/How Often: 3-4 CIGARETTES PER DAY X 10 YEARS Have You Smoked in the Last Year: No Review of Systems Negative: Fever, Chills Negative: Erythema Negative: Sore Throat Negative: Chest Pain Negative: Shortness Of Breath, Cough Negative: Abdominal Pain, Vomiting, Nausea Negative: dysuria, hematuria Positive: Arthralgia - Left knee, left wrist, Decreased ROM Positive: Bruising - LLE Neurological: Other - NEGATIVE: Dizziness All Other Systems Reviewed And Are Negative: Yes Physical Exam - Summary Physical Exam Summary: Constitutional: Well-developed, Well-nourished, Alert. (-) Distressed Skin: Warm, Dry HENT: Normocephalic; Atraumatic Eyes: Conjunctiva normal Neck: Musculoskeletal ROM normal neck. (-) JVD, (-) Stridor, (-) Tracheal deviation Cardio: Rhythm regular, rate normal, Heart sounds normal; Intact distal pulses; The pedal pulses are 2+ and symmetric. Radial pulses are 2+ and symmetric. (-) Murmur Pulmonary/Chest wall: Effort normal. (-) Respiratory distress, (-) Wheezes, (-) Rales Abd: Soft, (-) epigastric tenderness, (-) Distension, (-) Guarding, (-) Rebound Musculoskeletal: (-) Edema, deformed left wrist which is dorsally and laterally displaced, no ROM secondary to pain. No tenderness in hand, distal pulses intact. Lymph: (-) Cervical adenopathy Neuro: Alert, Oriented x3 Psych: Mood and affect Normal Triage Information Reviewed: Yes Vital Signs On Initial Exam: Initial Vitals Temp Pulse Resp BP Pulse Ox 97.1 F 96 17 146/67 97 12/12/17 12:09 12/12/17 12:09 12/12/17 12:09 12/12/17 12:09 12/12/17 12:09 Vital Signs Reviewed: Yes Procedures - Splinting Left Upper Extremity Location: L wrist Hand-Made Type: orthoglass - 20 cm of 3 inch orthoglass Splint: volar Pre-Proc Neuro Vasc Exam: normal Post-Proc Neuro Vasc Exam: normal, unchanged from pre-exam Diagnostics - Vital Signs Vital Signs Temp Pulse Resp BP Pulse Ox 12/12/17 12:09 97.1 F 96 17 146/67 97 - Laboratory Lab Statement: Any lab studies that have been ordered have been reviewed, and results considered in the medical decision making process. - Radiology LLE XR Radiology Interpretation Completed By: Radiologist - 1. OSTEOPENIA. 2. STATUS POST LEFT KNEE ARTHROPLASTY. 3. NO ACUTE OSSEOUS INJURY. IF SYMPTOMS PERSIST, RECOMMEND REPEAT IMAGING. Dr. Davis has reviewed this report. L wrist Xray Interpretation: Positive (See Comments) Radiology Interpretation Completed By: Radiologist - DORSALLY ANGULATED FRACTURE OF THE DISTAL RADIAL METAPHYSIS. Dr. Davis has reviewed this report. Adult Trauma Course/Dx - Course Course Of Treatment: A 67-year-old F presents to the ED with a CC of fall and associated injuries [employer]. (+) L wrist pain and deformity, with DROM secondary to pain. LLE pain, ecchymosis. (-) hitting head or neck. Pt fell while clearing the floor, tripping and falling onto her left side. L wrist XR: DORSALLY ANGULATED FRACTURE OF THE DISTAL RADIAL METAPHYSIS. LLE XR: 1. OSTEOPENIA. 2. STATUS POST LEFT KNEE ARTHROPLASTY. 3. NO ACUTE OSSEOUS INJURY. IF SYMPTOMS PERSIST, RECOMMEND REPEAT IMAGING. In the ED course, pt was given Delia. Right- hand dominant, should be able to function at home. - Diagnoses Provider Diagnoses: Distal radial fracture Discharge - Sign-Out/Discharge Documenting (check all that apply): Patient Departure - discharge - Discharge Plan Condition: Stable Disposition: HOME Prescriptions: oxyCODONE/Acetamin 5/325 MG* [Percocet 5/325 TAB*] 1 tab PO Q6H PRN #12 tab MDD 4 PRN Reason: Pain - Severe Patient Education Materials: Splint Care (ED), Wrist Fracture in Adults (ED) Referrals: Shayla Danielson MD [Medical Doctor] - Additional Instructions: Please return to the emergency department for any new or worsening symptoms. Follow up with the provided orthopedist (Dr. Danielson) in 3-5 days. - Attestation Statements Document Initiated by Scribe: Yes Documenting Scribe: Darnell Johnson Provider For Whom Scribe is Documenting (Include Credential): Dr. Sahil Davis MD Scribe Attestation: Darnell Magdaleno, scribed for Dr. Sahil Davis MD on 12/12/17 at 1545.
--- OUTSIDE RECORDS SUMMARY | 2017-12-12 12:48 | XMS REPORT ---
:1950 External Reference #:[id number] Author Organization [email or web address] Address [address] [place] [address] [place] [address] Phone [phone] Care Team Providers Name Role Phone Danisha Eller MD Primary Care Physician Unavailable Payers Type Date Identification Numbers Payment Provider Subscriber Health Maintenance Policy Number: Medicare Blue Ppo Jose Cabrera Organization (HMO) [id number] PayID: [id number] [address] [address] [place] [address] Commercial Effective: Policy Number: [employer] Medicaid Jose Cabrera 02/01/2011 [id number] Expires: 06/25/2017 PayID: [id number] [address] [address] [place] [address] Problems Description No Information Family History Date [...] Form Strength Qnty SIG Indications Ordering Provider Celecoxib 10/16/ Active Capsules 200mg 30cap Take 1 Dirk 2017 s tab twice Omari, a day as M.D. needed pain Percocet 08/29/ Active Tablets 5-325mg 90tab 1-2 by Dirk 2017 s mouth Omari, every 4-6 M.D. hours as needed pain. generic ok Cyclobenzaprine 08/29/ Active Tablets 10mg 90tab take [...] Omari, q6 hours M.D. as needed nausea Ranitidine HCL 06/06/ Active Tablets 300mg take [...] Pravastatin 01/17/ Active Tablets 10mg 1 tablet Walt Eller 2016 po daily Danisha evening MD Cait Irbesartan 12/17/ Active Tablets 75mg 1 by Daphnie 2016 mouth Danisha every day MD Cait Fish Oil [place]-3 / Active Capsules 1000mg 1 cap po Unknown 0000 daily Odorless Garlic / Active 0.75mg 1 cap po Unknown 0000 daily Centrum Silver / Active Tablets 1 by Unknown 0000 mouth every day Xarelto 08/14/ Hx Tablets 10mg 30tab Take one Dirk 2017 - tablet by Omari, 10/15/ mouth M.D. 2017 daily after surgery. Percocet 07/31/ Hx Tablets 5-325mg 60tab 1 po Dirk 2011 q4-6h prn Omari, 03/04/ pain M.D. 2017 Bactrim DS 06/13/ Hx Tablets 800-160mg 14tab 1 po bid Dirk 2011 for 7 Omari, 03/04/ days M.D. 2017 Coumadin 06/12/ Hx Tablets 2.5mg 90tab take 1-3 Dirk 2011 - as Omari, 03/04/ directed M.D. 2017 at 5pm daily Percocet 06/12/ Hx Tablets 5-325mg 60tab 1-2 tabs Dirk 2011 - po q4-6 Omari, 03/04/ prn pain M.D. 2017 Centrum Silver / Hx Tablets 50+Women Unknown 50+Women 0000 - 2017 Vital Signs Date Vital Result Comment 11/25/2017 Height 64 inches 5'4" Weight 271.00 lb BP Systolic 144 mmHg BP Diastolic 80 mmHg Respiratory Rate 20 /min Body Temperature 98.0 F Pain Level 0 BMI (Body Mass Index) 46.5 kg/m2 10/16/2017 Height 64 inches 5'4" Weight 271.00 lb BP Systolic 130 mmHg BP Diastolic 86 mmHg Respiratory Rate 18 /min Body Temperature 97.7 F Pain Level 7 BMI (Body Mass Index) 46.5 kg/m2 09/25/2017 Height 64 inches 5'4" Weight 271.00 [...] Color Yellow Urine Appearance Cloudy Urine Specific [place] 1.008 Low 1.010-1.030 Urine pH 6.0 5-9 [...] Yellow 7 Appearance-Urine CLEAR Clear 7 Specific [place]-Ur 1.021 1.010-1.030 7 Esterase-Urine 1+ Negative 7 Nitrite NEGATIVE Negative 7 Tqcycbpanffo-Lc-EKH NEGATIVE Negative 7 Protein-Urine NEGATIVE Negative 7 PH-Urine 5.0 5-9 7 Blood-Urine NEGATIVE Negative 7 Ketones-Urine NEGATIVE Negative 7 Bilirubin-Ur NEGATIVE Negative 7 Glucose-Urine NEGATIVE Negative 7 WBC-Urine 3-5 0-5 7 RBC-Urine 0-2 0-2 7 Epith Cells-Ur OCCASIONAL None 7 Bacteria-Urine TRACE None 7 Urine Culture & Sensitivi 06/13/2011 M <SEE NOTE> , 11 1 UNILATERAL PRIMARY OSTEOARTHRITIS, LEFT KNEE 2 SEE RESULT BELOW Name: JOSE CABRERA Darrick : [address]: Zachariah Salcido MD Acct: [id number] Unit: [id number] AGE: 67 Location: [facility] Re07/08/17 SEX: F Status: REG REF SPEC: [id number] SOLIS: 07/08/17 [facility] DR: Zachariah Salcido MD REQ: [id number] RECD: 07/08/17 STATUS: COMP _ SOURCE: URINE SPDESC: ORDERED: Urine Culture QUERIES: Urine Source: Clean Catch Procedure Result Reported Site Urine Culture Final 07/09/17- 5909 ML No growth of clinically significant organisms * ML - Main Lab . END OF REPORT DEPARTMENT OF PATHOLOGY, [address] [place] [address] William Zayas M.D. Director [facility] # [id number] 3 Because ethnic data is not always [...] <15 (or dialysis) 11 RUN DATE: 06/15/11 [facility] [place] NMI LIVE PAGE 1 RUN TIME: 902 Specimen Inquiry RUN USER: INTERFACE Name: JOSE CABRERA Status: REG REF Re06/13/11 Age/Sex: 61/F Unit#: [id number] Location: [facility] : 54 SPEC #: [id number] SOLIS: 06/13/11 STATUS: COMP REQ #: [id number] RECD: 06/13/[address]: Zachariah Salcido MD SOURCE: URINE ENTR: 06/13/11-[address]: Daphnie SWANSON, Danisha Chavira SPDESC: ORDERED: URINE C S QUERIES: SPECIMEN DESCRIPTION: URINE, RANDOM ACT WKST: UR 06/15/11 #1 Procedure Result Verified Site > URINE CULTURE SENSITIVI Final 06/15/11- 902 ML SCANT NORMAL URETHRAL OR PERINEAL DEEPTI ML - [facility] State Permit #[id number] [address] [place] [address] DEPARTMENT OF PATHOLOGY, [address] [place] [address] [facility] Permit #[id number] William Zyaas M.D. Director Daniele Mayes M.D. Sewer Contractor Procedures Date CPT Code Description Status 10/04/2017 40138 Treadmill Interp/Report Only Completed 10/04/2017 77786 Stress Test Supervsn W/Out I/R Completed 08/27/2017 69050 TKR Total Knee Replacement Completed 08/27/2017 75874 TKR Total Knee Replacement Completed 07/24/2017 76960 ECHO Transthoracic, Real-Time 2D With Doppler And Color Completed Flow 07/24/2017 46026 ECHO Transthoracic, Real-Time 2D With Doppler And Color Completed Flow 07/19/2017 27653 EKG Tracing & Interpretation Completed 07/08/2017 23078 EKG, Interpretation Only Completed 04/16/2012 27324 Rad Exam; Knee, Ap&L Completed 04/16/2012 80949 Xray Knee 3 Views Completed 08/01/2011 34659 Xray Knee 3 Views Completed 08/01/2011 24041 Rad Exam; Knee, Ap&L Completed 06/19/2011 93186 TKR Total Knee Replacement Completed 06/19/2011 33892 TKR Total Knee Replacement Completed 04/23/2011 57313 Xray Knee 3 Views Completed 04/23/2011 12251 Rad Exam; Knee, Ap&L Completed 09/18/2010 34204 Rad Exam; Both Knees, Standing Ap Completed 09/18/2010 35808 Rad Exam; Knee, Ap&L Completed Encounters Type Date Location Provider CPT E/M Dx [facility] [address] F41.0 3:37p Hospitalists [facility] [address] R00.2 3:37p Hospitalists R42 R61 Office Visit 08/28/2017 10:17a [facility] JOB Anne [address] Z47.1 Hospitalists Z96.652 M17.12 M25.562 E11.9 Office Visit 08/27/2017 10:16a [facility] JOB Navarro 78[address] Z47.1 Assoc, Hospitalists Z96.652 M17.12 E11.9 I10 E78.5 Office Visit 07/19/2017 11:45a [facility] Pierre, [address] I10 Madhavi Amaro E11.9 R94.31 Z01.810 E66.9 E78.4 Office Visit 06/26/2017 10:45a [facility] Salcido M.D. 51464 M17.12 C.M.A[facility] Office Visit 09/07/2016 3:58p [facility],stefany Hernandez, 30859 N12 Hospitalists Prem E11.9 R10.9 I10 Office Visit 09/06/2016 3:57p [facility], Brisawilfrido Escobedo, DIVER TENDER 17121 N12 Hospitalists E11.9 R10.9 I10 Office Visit 08/29/2016 10:00a [facility] M.D. 00249 M17.12 C.M.A. Office Visit 04/16/2012 9:00a [facility] M.D. 25527 715.96 C.M.A. Office Visit 01/23/2012 8:00a [facility] Darline Grey, 21309 715.96 C.M.A. RPA-C Office Visit 04/23/2011 9:15a [facility] M.D. 31559 716.96 C.M.A. Office Visit 10/30/2010 8:15a [facility] M.D. 01929 716.96 C.M.A. Office Visit 09/18/2010 9:30a [facility] M.D. 81078 716.96 C.M.A. Plan of Care Future Appointment(s):05/26/2018 8:15 am - Zachariah Salcido M.D. at [facility]11/25/2017 - Zachariah Salcido M.D.Z96.652 Presence of left artificial knee jointFollow up:Follow up: 6-12 months and as needed Keep doing leg lifting exercises, 5 seconds each try to repeat 20 times on your back and stomach Antibiotic for the dentist
--- NOTE | 2017-12-12 13:29 | RAD ---
HISTORY: FALL, PAIN, left wrist pain COMPARISONS: None VIEWS: 4 , Frontal, lateral, and oblique views of the left wrist FINDINGS: BONE DENSITY: There is diffuse osteopenia. BONES: There is a transverse, dorsally angulated fracture of the distal radial metaphysis. JOINTS: There is advanced osteoarthritis of the first CMC and STT joints. ALIGNMENT: There is no dislocation. SOFT TISSUES: Unremarkable. OTHER FINDINGS: None. IMPRESSION: DORSALLY ANGULATED FRACTURE OF THE DISTAL RADIAL METAPHYSIS
--- NOTE | 2017-12-12 13:30 | RAD ---
HISTORY: Fall, left leg pain COMPARISONS: Left knee dated October 03, 2017 VIEWS: 2 , Frontal and lateral views of the left foreleg FINDINGS: BONE DENSITY: There is diffuse osteopenia. BONES: There is no displaced fracture. The patient is status post left knee arthroplasty. JOINTS: There is no arthropathy. ALIGNMENT: There is no dislocation. SOFT TISSUES: Unremarkable. OTHER FINDINGS: None. IMPRESSION: 1. OSTEOPENIA. 2. STATUS POST LEFT KNEE ARTHROPLASTY. 3. NO ACUTE OSSEOUS INJURY. IF SYMPTOMS PERSIST, RECOMMEND REPEAT IMAGING
[2017-12-12 16:00] VITALS: BP 142/79
== END | disposition home or self-care (01) ==
LOC: ED 12:05
DX: S52.502A Unspecified fracture of the lower end of left radius, initial encounter for closed fracture (principal); T14.8XXA Other injury of unspecified body region, initial encounter; K21.9 Gastro-esophageal reflux disease without esophagitis; W01.0XXA Fall on same level from slipping, tripping and stumbling without subsequent striking against object, initial encounter; Y92.9 Unspecified place or not applicable; E11.9 Type 2 diabetes mellitus without complications; Z87.891 Personal history of nicotine dependence
CPT/HCPCS: 99282; A9270-GY

== ENCOUNTER 2020-09-10 08:23 | Observation (INO) ==
[2020-09-10 09:43] LABS: Hematocrit 39 % (35-47); Hemoglobin 13.1 g/dL (12.0-16.0); Mean Corpuscular HGB Conc 34 g/dL (31-36); Mean Corpuscular Hemoglobin 30 pg (27-31); Mean Corpuscular Volume 89 fL (80-97); Red Blood Count 4.37 10^6 /uL (3.70-4.87); Red Cell Distribution Width 14 % (10-15); White Blood Count 3.4 10^3/uL (3.5-10.8)
[2020-09-10 09:56] LABS: Albumin 3.5 g/dL (3.2-5.2); Albumin/Globulin Ratio 1.2 (1-3); Calcium 8.5 mg/dL (8.6-10.3); EGFR African American 51.6 (>60); EGFR Non-African American 42.6 (>60); Globulin 2.9 g/dL (2-4); Potassium 4.1 mmol/L (3.5-5.0); Total Bilirubin 0.9 mg/dL (0.2-1.0); Total Protein 6.4 g/dL (6.4-8.9)
[2020-09-10] MEDS ORDERED: Iodixanol (CONTRAST) 320 MG/ML 100 ML SDV IV ONE (10:11)
[2020-09-10 10:28] LABS: ABS Lymphocytes 0.4 10^3/ul (1.0-4.8); ABS Monocytes 0.2 10^3/ul (0-0.8); ABS Neutrophils 2.8 10^3/ul (1.5-7.7); Lymphocyte % 12.2 %; Mean Platelet Volume 9.1 fL (7.4-10.4); Platelet Count 90 10^3/uL (150-450)
[2020-09-10 11:24] LABS: Urine Appearance Cloudy; Urine Bilirubin Negative (Negative); Urine Blood 1+ (Negative); Urine Color Yellow; Urine Glucose 3+(>=500 mg/dL) (Negative); Urine Ketones Trace (Negative); Urine Nitrite Negative (Negative); Urine Protein 1+(30 mg/dL) (Negative); Urine Urobilinogen Negative (Negative)
[2020-09-10 11:29] LABS: Urine Bacteria Absent (Absent); Urine Red Blood Cell 2+(6-10/hpf) (Absent); Urine Squamous Epithelial Cell Present (Absent); Urine White Blood Cell Absent (Absent)
[2020-09-10 11:53] LABS: Urine Specific Gravity > 1.060 (1.002-1.030)
[2020-09-10] MEDS ORDERED: Lactated Ringers 1000 ml BAG 1,000 ML IV ONE ×2 (11:58→12:10)
[2020-09-10] MEDS ORDERED: oxyCODONE/Acetamin 5/325 mg TAB PO ONE (12:39)
[2020-09-10 14:41] LABS: Calcium 8.2 mg/dL (8.6-10.3); EGFR African American 47.6 (>60); EGFR Non-African American 39.3 (>60)
[2020-09-10] MEDS ORDERED: Diltiazem IV push/loading dose 5 MG/ML 5 ML vial (25 mg) IV SLOW PU ONE ×2 (16:42→17:44)
[2020-09-10 16:46] LABS: Potassium 4.6 mmol/L (3.5-5.0)
[2020-09-10] MEDS ORDERED: Amiodarone 150 mg IVPREMIX 150 MG/100 ML BAG IV ONE (16:46)
[2020-09-10 17:26] LABS: Magnesium 1.5 mg/dL (1.9-2.7)
[2020-09-10] MEDS ORDERED: Magnesium Sulfate IV 3 GM in NS 0.9% 100 ml BAG 100 ML IVPB ONE (17:43)
[2020-09-10] MEDS ORDERED: Dextrose 50% Syringe 50 ml 25 GM/50 ML SYRINGE IV PUSH PRN (17:59)
[2020-09-10] MEDS ORDERED: Diltiazem (ADVAN VIAL) 100 MG/100 ML ADDV.BAG IV SCH (18:00)
[2020-09-11] MEDS ORDERED: Diltiazem (ADVAN VIAL) 100 MG/100 ML ADDV.BAG IV SCH ×2 (00:05→02:11)
[2020-09-11] MEDS: Diltiazem (ADVAN VIAL) 100 MG/100 ML ADDV.BAG IV SCH ×2 (06:46→08:00)
[2020-09-11 07:22] LABS: ABS Lymphocytes 1.1 10^3/ul (1.0-4.8); ABS Monocytes 0.6 10^3/ul (0-0.8); ABS Neutrophils 2.7 10^3/ul (1.5-7.7); Eosinophil % 0.1 %; Hematocrit 35 % (35-47); Hemoglobin 12.2 g/dL (12.0-16.0); Lymphocyte % 25.8 %; Mean Corpuscular HGB Conc 35 g/dL (31-36); Mean Corpuscular Hemoglobin 30 pg (27-31); Mean Corpuscular Volume 87 fL (80-97); Mean Platelet Volume 9.6 fL (7.4-10.4); Platelet Count 74 10^3/uL (150-450); Red Blood Count 4.06 10^6 /uL (3.70-4.87); Red Cell Distribution Width 13 % (10-15); White Blood Count 4.4 10^3/uL (3.5-10.8)
[2020-09-11 07:26] LABS: Albumin 3.2 g/dL (3.2-5.2); Albumin/Globulin Ratio 1.3 (1-3); Calcium 8.3 mg/dL (8.6-10.3); EGFR African American 51.1 (>60); EGFR Non-African American 42.2 (>60); Globulin 2.5 g/dL (2-4); Magnesium 2.1 mg/dL (1.9-2.7); Potassium 3.9 mmol/L (3.5-5.0); Total Bilirubin 0.7 mg/dL (0.2-1.0); Total Protein 5.7 g/dL (6.4-8.9)
[2020-09-11 08:15] LABS: RBC Morphology Normal (Normal)
[2020-09-11] MEDS ORDERED: Perflutren Lipid Microsphere 3 ML VIAL ONE (11:18)
[2020-09-11] MEDS ORDERED: Flumazenil 0.5 mg/5 ml 0.1 MG/ML 5 ml VIAL ONE (13:50)
[2020-09-11] MEDS ORDERED: Naloxone 0.4 mg VIAL 0.4 mg/ml 1 ml VIAL ONE (13:50)
[2020-09-11] MEDS ORDERED: Midazolam 10 mg/10 ml VIAL 1 mg/ml 10 ml VIAL (10 mg) ONE (13:50)
[2020-09-11] MEDS ORDERED: fentaNYL 100 mcg/2 ml 50 MCG/ML VIAL ONE (13:51)
[2020-09-11] MEDS ORDERED: CMCS: Pravastatin 20 mg TAB (NF) PO SCH (18:00)
[2020-09-11] MEDS ORDERED: Insulin GLARGINE 100 un/ml 10 ml VIAL SUBCUT SCH (21:00)
[2020-09-12 10:03] LABS: ABS Lymphocytes 1.5 10^3/ul (1.0-4.8); ABS Monocytes 0.7 10^3/ul (0-0.8); ABS Neutrophils 4.3 10^3/ul (1.5-7.7); Eosinophil % 0.2 %; Hematocrit 31 % (35-47); Hemoglobin 10.7 g/dL (12.0-16.0); Lymphocyte % 23.3 %; Mean Corpuscular HGB Conc 34 g/dL (31-36); Mean Corpuscular Hemoglobin 30 pg (27-31); Mean Corpuscular Volume 87 fL (80-97); Mean Platelet Volume 9.9 fL (7.4-10.4); Nucleated Red Blood Cells % 0.1; Platelet Count 87 10^3/uL (150-450); Red Blood Count 3.59 10^6 /uL (3.70-4.87); Red Cell Distribution Width 14 % (10-15); White Blood Count 6.5 10^3/uL (3.5-10.8)
[2020-09-12 10:20] LABS: Calcium 8.3 mg/dL (8.6-10.3); EGFR African American 70.8 (>60); EGFR Non-African American 58.5 (>60); Potassium 3.9 mmol/L (3.5-5.0)
[2020-09-12 11:19] VITALS: BP 117/45
[2020-09-14 14:58] LABS: Anaplasma phagocytophilum Positive (Negative); B. miyamotoi PCR, B Negative (Negative); Babesia divergens/MO-1 Negative (Negative); Babesia ducani Negative (Negative); Ehrlichia chaffeensis Negative (Negative); Ehrlichia ewingii/canis Negative (Negative); Ehrlichia muris eauclairensis Negative (Negative)
== END 2020-09-12 11:50 | disposition home or self-care (01) ==
LOC: MEDTELE 08:23 → ED 08:23 → MEDTELE 20:16 → ICU 09-11 14:04 → MEDTELE 09-11 14:32
PROVIDERS: ADMIT Internal Medicine; ATTEND Internal Medicine

== ENCOUNTER 2020-09-14 13:03 | Inpatient (IN) ==
[2020-09-14] MEDS ORDERED: Diltiazem IV push/loading dose 5 MG/ML 5 ML vial (25 mg) IV SLOW PU ONE (13:31)
[2020-09-14] MEDS ORDERED: Lactated Ringers 1000 ml BAG 1,000 ML IV ONE (13:31)
[2020-09-14] MEDS ORDERED: Magnesium Sulfate IV 1GM/100ML 1 GM/100 ML BAG IV ONE (13:31)
[2020-09-14 13:41] LABS: ABS Eosinophils 0.1 10^3/ul (0-0.6); ABS Lymphocytes 2.7 10^3/ul (1.0-4.8); ABS Monocytes 0.7 10^3/ul (0-0.8); Eosinophil % 0.7 %; Hematocrit 34 % (35-47); Hemoglobin 11.9 g/dL (12.0-16.0); Lymphocyte % 31.6 %; Mean Corpuscular HGB Conc 35 g/dL (31-36); Mean Corpuscular Hemoglobin 31 pg (27-31); Mean Corpuscular Volume 88 fL (80-97); Mean Platelet Volume 9.4 fL (7.4-10.4); Platelet Count 187 10^3/uL (150-450); Red Blood Count 3.88 10^6 /uL (3.70-4.87); Red Cell Distribution Width 14 % (10-15); White Blood Count 8.6 10^3/uL (3.5-10.8)
[2020-09-14 14:01] LABS: ALT 70 U/L (7-52); AST 26 U/L (13-39); Albumin 3.5 g/dL (3.2-5.2); Albumin/Globulin Ratio 1.3 (1-3); Alkaline Phosphatase 135 U/L (35-149); Anion Gap 7 mmol/L (2-11); Blood Urea Nitrogen 11 mg/dL (6-24); CO2 Carbon Dioxide 29 mmol/L (22-32); Calcium 9.1 mg/dL (8.6-10.3); Chloride 99 mmol/L (101-111); EGFR African American 82.7 (>60); EGFR Non-African American 68.4 (>60); Globulin 2.7 g/dL (2-4); Glucose 275 mg/dL (70-100); Magnesium 1.5 mg/dL (1.9-2.7); Potassium 3.6 mmol/L (3.5-5.0); Sodium 135 mmol/L (135-145); Total Protein 6.2 g/dL (6.4-8.9)
[2020-09-14 14:13] LABS: Troponin I 0.09 ng/mL (<0.03)
[2020-09-14] MEDS ORDERED: Magnesium Sulfate 2 gm BAG 2 GM/50 ML BAG IVPB ONE (14:26)
[2020-09-14] MEDS ORDERED: Diltiazem (ADVAN VIAL) 100 MG/100 ML ADDV.BAG IV SCH (15:00)
[2020-09-14] MEDS ORDERED: Naloxone 0.4 mg VIAL 0.4 mg/ml 1 ml VIAL ONE (15:21)
[2020-09-14] MEDS ORDERED: fentaNYL 100 mcg/2 ml 50 MCG/ML VIAL ONE (15:21)
[2020-09-14] MEDS ORDERED: Flumazenil 0.5 mg/5 ml 0.1 MG/ML 5 ml VIAL ONE (15:21)
[2020-09-14] MEDS ORDERED: Midazolam 5 mg/5 ml VIAL 1 mg/ml 5 ml VIAL (5 mg) ONE (15:21)
[2020-09-14] MEDS ORDERED: Ondansetron 4 mg VIAL 2 MG/ML 2 ml VIAL IV PRN (15:40)
[2020-09-14] MEDS ORDERED: oxyCODONE/Acetamin 5/325 mg TAB PO PRN ×2 (15:45)
[2020-09-14] MEDS ORDERED: Dextrose 50% Syringe 50 ml 25 GM/50 ML SYRINGE IV PUSH PRN (15:49)
[2020-09-14] MEDS ORDERED: Pravastatin 10 mg TAB (NF) PO SCH (18:00)
[2020-09-14] MEDS: Furosemide 20 mg/2 ml IV VIAL IV SLOW PU SCH (18:04)
[2020-09-14 18:36] LABS: Troponin I 0.08 ng/mL (<0.03)
[2020-09-14 19:11] LABS: Troponin I 0.09 ng/mL (<0.03)
[2020-09-14] MEDS: Insulin GLARGINE 100 un/ml 10 ml VIAL SUBCUT SCH (22:42)
[2020-09-15 05:50] LABS: ABS Eosinophils 0.2 10^3/ul (0-0.6); ABS Lymphocytes 3.3 10^3/ul (1.0-4.8); ABS Monocytes 0.7 10^3/ul (0-0.8); ABS Neutrophils 4.8 10^3/ul (1.5-7.7); Eosinophil % 2.1 %; Hematocrit 29 % (35-47); Hemoglobin 9.9 g/dL (12.0-16.0); Mean Corpuscular HGB Conc 34 g/dL (31-36); Mean Corpuscular Hemoglobin 30 pg (27-31); Mean Corpuscular Volume 87 fL (80-97); Mean Platelet Volume 9.1 fL (7.4-10.4); Platelet Count 209 10^3/uL (150-450); Red Blood Count 3.31 10^6 /uL (3.70-4.87); Red Cell Distribution Width 14 % (10-15)
[2020-09-15 06:09] LABS: Anion Gap 7 mmol/L (2-11); Blood Urea Nitrogen 13 mg/dL (6-24); CO2 Carbon Dioxide 29 mmol/L (22-32); Calcium 8.5 mg/dL (8.6-10.3); Chloride 100 mmol/L (101-111); EGFR African American 99.1 (>60); EGFR Non-African American 81.9 (>60); Glucose 182 mg/dL (70-100); Magnesium 1.8 mg/dL (1.9-2.7); Sodium 136 mmol/L (135-145)
[2020-09-15] MEDS: Multivitamins/Minerals TAB PO SCH (08:07)
[2020-09-15] MEDS: Furosemide 20 mg/2 ml IV VIAL IV SLOW PU SCH (08:07)
[2020-09-15] MEDS ORDERED: Perflutren Lipid Microsphere 3 ML VIAL ONE (08:15)
[2020-09-15] MEDS ORDERED: Magnesium Sulfate 2 gm BAG 2 GM/50 ML BAG IVPB ONE (08:18)
[2020-09-15] MEDS ORDERED: Potassium Chlor 20 meq TAB.ER PO ONE (10:16)
[2020-09-15 10:39] LABS: Troponin I 0.07 ng/mL (<0.03)
[2020-09-15] MEDS: Pravastatin 20 mg TAB (NF) PO SCH (17:48)
[2020-09-15] MEDS: Insulin GLARGINE 100 un/ml 10 ml VIAL SUBCUT SCH (21:21)
[2020-09-16 06:14] LABS: ABS Eosinophils 0.2 10^3/ul (0-0.6); ABS Lymphocytes 3.1 10^3/ul (1.0-4.8); ABS Monocytes 0.7 10^3/ul (0-0.8); ABS Neutrophils 4.2 10^3/ul (1.5-7.7); Eosinophil % 2.2 %; Hematocrit 29 % (35-47); Hemoglobin 9.7 g/dL (12.0-16.0); Lymphocyte % 37.8 %; Mean Corpuscular HGB Conc 34 g/dL (31-36); Mean Corpuscular Hemoglobin 30 pg (27-31); Mean Corpuscular Volume 88 fL (80-97); Mean Platelet Volume 8.7 fL (7.4-10.4); Platelet Count 265 10^3/uL (150-450); Red Blood Count 3.26 10^6 /uL (3.70-4.87); Red Cell Distribution Width 14 % (10-15); White Blood Count 8.2 10^3/uL (3.5-10.8)
[2020-09-16 06:31] LABS: Calcium 8.6 mg/dL (8.6-10.3); EGFR African American 97.5 (>60); EGFR Non-African American 80.6 (>60)
[2020-09-16] MEDS ORDERED: Aminophylline 25 MG/ML VIAL ONE (08:32)
[2020-09-16] MEDS ORDERED: Regadenoson 0.4 MG/5 ML SYRINGE ONE (08:32)
[2020-09-16] MEDS: Multivitamins/Minerals TAB PO SCH (10:23)
[2020-09-16] MEDS: Potassium Chlor 10 meq TAB PO SCH (10:23)
[2020-09-16] MEDS: Pravastatin 20 mg TAB (NF) PO SCH (17:06)
[2020-09-16] MEDS: Insulin GLARGINE 100 un/ml 10 ml VIAL SUBCUT SCH (22:05)
[2020-09-17 06:29] LABS: ABS Eosinophils 0.2 10^3/ul (0-0.6); ABS Lymphocytes 3.1 10^3/ul (1.0-4.8); ABS Monocytes 0.7 10^3/ul (0-0.8); Eosinophil % 1.9 %; Hematocrit 30 % (35-47); Hemoglobin 10.1 g/dL (12.0-16.0); Lymphocyte % 38.4 %; Mean Corpuscular HGB Conc 34 g/dL (31-36); Mean Corpuscular Hemoglobin 30 pg (27-31); Mean Corpuscular Volume 88 fL (80-97); Mean Platelet Volume 8.3 fL (7.4-10.4); Platelet Count 341 10^3/uL (150-450); Red Blood Count 3.37 10^6 /uL (3.70-4.87); Red Cell Distribution Width 13 % (10-15)
[2020-09-17 06:42] LABS: Anion Gap 5 mmol/L (2-11); Blood Urea Nitrogen 14 mg/dL (6-24); CO2 Carbon Dioxide 32 mmol/L (22-32); Calcium 8.9 mg/dL (8.6-10.3); Chloride 100 mmol/L (101-111); EGFR African American 94.4 (>60); Glucose 194 mg/dL (70-100); Magnesium 1.6 mg/dL (1.9-2.7); Potassium 4.2 mmol/L (3.5-5.0); Sodium 137 mmol/L (135-145)
[2020-09-17] MEDS: Potassium Chlor 10 meq TAB PO SCH (08:19)
[2020-09-17] MEDS: Multivitamins/Minerals TAB PO SCH (08:19)
[2020-09-17] MEDS ORDERED: Magnesium Sulfate 2 gm BAG 2 GM/50 ML BAG IVPB ONE (08:24)
[2020-09-17 10:58] LABS: Troponin I 0.07 ng/mL (<0.03)
[2020-09-17 15:38] VITALS: BP 132/66
== END 2020-09-17 16:40 | disposition home or self-care (01) | DRG 309 ==
LOC: MEDTELE 13:03 → ED 13:03 → MEDTELE 15:31 → OBSVTOIN 15:40
PROVIDERS: ADMIT Hospitalist; ATTEND Hospitalist
PROC: CARDVER (ICD-10-PCS; 2020-09-14 15:20)